=== PATIENT | male | born 1945 | race American Indian/Alaskan Native ===

== ENCOUNTER 2016-04-30 08:49 | Inpatient (IN) | payer MEDICARE ==
[2016-04-30] MEDS ORDERED: DUONEB 0.5 MG-3 MG/3 ML SOLN IH ONE ×2 (09:04→09:06)
[2016-04-30] MEDS ORDERED: TYLENOL ONE (09:25)
[2016-04-30] MEDS ORDERED: TYLENOL PO ONE (09:29)
--- NOTE | 2016-04-30 09:42 | XRay Report ---
Chest 2 views: History: Shortness of breath. Findings: Cardiomegaly. Trachea is midline. Pulmonary venous congestion predominantly lower lobes. No consolidation or pleural effusion. Impression: Probable early CHF.
[2016-04-30 09:43] LABS: Basophils % (Auto) 0.9 % (0.0-1.8); Eosinophils % (Auto) 3.4 % (0.0-4.3); Hematocrit 21.1 % (35.5-45.6); Hemoglobin 7.2 gm/dl (11.8-15.2); Mean Corpuscular HGB Conc 34 % (32-34); Mean Corpuscular Hemoglobin 27 pg (28-32); Mean Corpuscular Volume 80 fl (84-94); Platelet Count 227 K/mm3 (140-440); Red Blood Count 2.65 M/mm3 (3.65-5.03); Red Cell Distribution Width 17.4 % (13.2-15.2); White Blood Count 12.9 K/mm3 (4.5-11.0)
[2016-04-30 09:52] LABS: BUN/Creatinine Ratio 7.42; Calcium 6.6 mg/dL (8.4-10.2); Chloride 105.1 mmol/L (98-107)
[2016-04-30 09:54] LABS: Potassium 6.1 mmol/L (3.6-5.0)
[2016-04-30] MEDS ORDERED: SODIUM BICARBONATE IV ONE ×2 (10:00→10:09)
[2016-04-30] MEDS ORDERED: CALCIUM GLUCONATE 1,000 MG in NACL 0.9% 100 ML IV ONE (10:01)
[2016-04-30] MEDS ORDERED: KIONEX PO ONE (10:02)
[2016-04-30] MEDS ORDERED: D50W (25GM) IV ONE (10:02)
[2016-04-30 10:39] LABS: INR 1.25 (0.87-1.13)
[2016-04-30 10:40] LABS: Partial Thromboplastin Time 47.9 Sec. (24.2-36.6)
[2016-04-30 10:43] LABS: Alanine Aminotransferase < 5 units/L (7-56); Albumin 3.4 g/dL (3.9-5); Albumin/Globulin Ratio 0.9 %; Alkaline Phosphatase 105 units/L (35-129); Bilirubin,Direct < 0.2 mg/dL (0-0.2); Bilirubin,Total 0.2 mg/dL (0.1-1.2); Total Protein 7.2 g/dL (6.3-8.2)
--- NOTE | 2016-04-30 12:36 | Emergency Department Report ---
ED General Adult HPI - General Chief complaint: Dyspnea/Respdistress Stated complaint: JELNEA Time Seen by Provider: 04/30/16 09:57 Source: patient Mode of arrival: Stretcher Limitations: No Limitations - History of Present Illness Initial comments: She states that he came to the emergency room today because of shortness of breath. Has a history of chronic renal failure and states that he has to make an appointment for a "fistula". He has been previously seen by [facility]. I suspect he has not been very compliant with his follow-up care. He does note that he has a history of congestive heart failure and previous transfusion. He's had no recent signs of GI bleeding. He does not complain of chest pain. He denies fever and chills. -: days(s) Associated Symptoms: denies other symptoms (except as above) - Related Data Home Medications Medication Instructions Recorded Confirmed Last Taken Aspirin [Aspirin BABY CHEW TAB] 81 mg PO DAILY 04/09/13 04/30/16 04/27/13 08:00 81mg Carvedilol [Coreg] 12.5 mg PO BID 04/09/13 04/30/16 04/27/13 08:00 12.5 mg Hydrochlorothiazide [HCTZ] 12.5 mg PO QDAY 04/09/13 04/30/16 04/27/13 08:00 amLODIPine [Norvasc] 10 mg PO DAILY 04/09/13 04/30/16 04/27/13 08:00 10 mg hydrALAZINE [Apresoline TAB] 50 mg PO TID 04/09/13 04/30/16 04/27/13 08:00 50 Allopurinol [Zyloprim] 100 mg PO QDAY 11/06/14 04/30/16 Unknown Atorvastatin Calcium [Lipitor] 10 mg PO QHS 11/06/14 04/30/16 Unknown Pantoprazole Sodium 40 mg PO QDAY 11/06/14 04/30/16 Unknown Famotidine [Pepcid] 20 mg PO BID 04/30/16 04/30/16 Unknown Ferrous Sulfate [Feosol] 325 mg PO QDAY 04/30/16 04/30/16 Unknown Furosemide [Lasix] 20 mg PO QDAY 04/30/16 04/30/16 Unknown Insulin NPH/Regular [Novolin 70/30] 15 unit SUB-Q BID 04/30/16 04/30/16 Unknown Sodium Bicarbonate 650 mg PO BID 04/30/16 04/30/16 Unknown Allergies Allergy/AdvReac Type Severity Reaction Status Date / Time No Known Allergies Allergy Verified 11/06/14 11:35 ED Review of Systems ROS: Stated complaint: JELENA Other details as noted in HPI Constitutional: weakness. denies: chills, fever Eyes: denies: eye pain, eye discharge, vision change ENT: denies: ear pain, throat pain Respiratory: shortness of breath, SOB with exertion, SOB at rest. denies: cough , wheezing Cardiovascular: denies: chest pain, palpitations Endocrine: no symptoms reported Gastrointestinal: denies: abdominal pain, nausea, diarrhea Genitourinary: denies: urgency, dysuria Musculoskeletal: denies: back pain, joint swelling, arthralgia Skin: denies: rash, lesions Neurological: denies: headache, weakness, paresthesias Psychiatric: denies: anxiety, depression Hematological/Lymphatic: denies: easy bleeding, easy bruising ED Past Medical Hx - Past Medical History Hx Hypertension: Yes (hyperlipidemia) Hx Congestive Heart Failure: No Hx Diabetes: Yes Hx Renal Disease: Yes (chronic, not on dialysis) Hx Sickle Cell Disease: No Hx Asthma: No Hx COPD: No Additional medical history: anemia - Surgical History Past Surgical History?: No - Social History Smoking Status: Current Some Day Smoker Substance Use Type: None - Medications Home Medications: Home Medications Medication Instructions Recorded Confirmed Last Taken Type Aspirin [Aspirin BABY CHEW TAB] 81 mg PO DAILY 04/09/13 04/30/16 04/27/13 08:00 History 81mg Carvedilol [Coreg] 12.5 mg PO BID 04/09/13 04/30/16 04/27/13 08:00 History 12.5 mg Hydrochlorothiazide [HCTZ] 12.5 mg PO QDAY 04/09/13 04/30/16 04/27/13 08:00 History amLODIPine [Norvasc] 10 mg PO DAILY 04/09/13 04/30/16 04/27/13 08:00 History 10 mg hydrALAZINE [Apresoline TAB] 50 mg PO TID 04/09/13 04/30/16 04/27/13 08:00 History 50 Allopurinol [Zyloprim] 100 mg PO QDAY 11/06/14 04/30/16 Unknown History Atorvastatin Calcium [Lipitor] 10 mg PO QHS 11/06/14 04/30/16 Unknown History Pantoprazole Sodium 40 mg PO QDAY 11/06/14 04/30/16 Unknown History Famotidine [Pepcid] 20 mg PO BID 04/30/16 04/30/16 Unknown History Ferrous Sulfate [Feosol] 325 mg PO QDAY 04/30/16 04/30/16 Unknown History Furosemide [Lasix] 20 mg PO QDAY 04/30/16 04/30/16 Unknown History Insulin NPH/Regular [Novolin 70/30] 15 unit SUB-Q BID 04/30/16 04/30/16 Unknown History Sodium Bicarbonate 650 mg PO BID 04/30/16 04/30/16 Unknown History ED Physical Exam - General Limitations: No Limitations General appearance: alert, in no apparent distress - Head Head exam: Present: atraumatic, normocephalic - Eye Eye exam: Present: normal appearance, PERRL, EOMI. Absent: scleral icterus - ENT ENT exam: Present: mucous membranes moist - Neck Neck exam: Present: normal inspection. Absent: tenderness, meningismus - Respiratory Respiratory exam: Present: normal lung sounds bilaterally (except somewhat distant). Absent: respiratory distress - Cardiovascular Cardiovascular Exam: Present: regular rate, normal rhythm. Absent: systolic murmur, diastolic murmur, rubs, gallop - GI/Abdominal GI/Abdominal exam: Present: soft, normal bowel sounds. Absent: distended, tenderness, guarding, rebound, rigid - Rectal Rectal exam: Present: deferred - Extremities Exam Extremities exam: Present: normal inspection, other (pretibial edema) - Back Exam Back exam: Present: normal inspection - Neurological Exam Neurological exam: Present: alert, oriented X3, CN II-XII intact. Absent: motor sensory deficit - Psychiatric Psychiatric exam: Present: normal affect, normal mood - Skin Skin exam: Present: warm, dry, intact. Absent: normal color (a bit pale), rash ED Course Vital Signs 04/30/16 04/30/16 04/30/16 08:57 09:17 09:31 Temperature 98.3 F Pulse Rate 86 Pulse Rate [ 85 Left Middle Lobe] Respiratory 22 Rate Respiratory 16 Rate [Left Middle Lobe] Blood Pressure 172/84 Blood Pressure [Right] O2 Sat by Pulse 22 L 2 L Oximetry 04/30/16 04/30/16 09:44 12:00 Temperature Pulse Rate 86 82 Pulse Rate [ Left Middle Lobe] Respiratory 20 Rate Respiratory Rate [Left Middle Lobe] Blood Pressure Blood Pressure 168/77 [Right] O2 Sat by Pulse 97 Oximetry - Reevaluation(s) Reevaluation #1: The patient was given a hyperkalemia cocktail as above indicated. I immediately spoke to Dr. Amaro concerning his care and management. She stated that she would see the patient and decide there after as to the need for an emergency vas cath. She stated she would have the lateral aspect of care. I spoke to Dr. Barros the hospitalist on-call. He is aware of the need to admit. After the patient's hyperkalemia cocktail, his blood pressure remained a bit high but not significantly so. His pulse oximetry is are well maintained. A half inch of Nitropaste was additionally ordered. 04/30/16 12:42 ED Medical Decision Making - Lab Data Result diagrams: 04/30/16 09:19 04/30/16 09:19 Laboratory Results - last 24 hr 04/30/16 04/30/16 04/30/16 09:19 09:19 10:03 WBC 12.9 H RBC 2.65 L Hgb 7.2 L Hct 21.1 L MCV 80 L MCH 27 L MCHC 34 RDW 17.4 H Plt Count 227 Lymph % (Auto) 7.8 L Durham % (Auto) 9.6 H Eos % (Auto) 3.4 Baso % (Auto) 0.9 Lymph # 1.0 L [place] # 1.2 H Eos # 0.4 Baso # 0.1 Seg Neutrophils % 78.3 H Seg Neutrophils # 10.1 H PT 15.6 H INR 1.25 H APTT 47.9 H Sodium 141 Potassium 6.1 H* Chloride 105.1 Carbon Dioxide 13 L Anion Gap 29 BUN 95 H Creatinine 12.8 H Estimated GFR 5 BUN/Creatinine Ratio 7.42 Glucose 122 H Calcium 6.6 L Total Bilirubin Direct Bilirubin Indirect Bilirubin AST ALT Alkaline Phosphatase Troponin T 0.033 H NT-Pro-B Natriuret Pep 70727 H Total Protein Albumin Albumin/Globulin Ratio Triglycerides 143 Cholesterol 181 LDL Cholesterol Direct 120 HDL Cholesterol 33 L Cholesterol/HDL Ratio 5.48 Blood Type 04/30/16 04/30/16 10:03 10:03 WBC RBC Hgb Hct MCV MCH MCHC RDW Plt Count Lymph % (Auto) Durham % (Auto) Eos % (Auto) Baso % (Auto) Lymph # Durham # Eos # Baso # Seg Neutrophils % Seg Neutrophils # PT INR APTT Sodium Potassium Chloride Carbon Dioxide Anion Gap BUN Creatinine Estimated GFR BUN/Creatinine Ratio Glucose Calcium Total Bilirubin 0.2 Direct Bilirubin < 0.2 Indirect Bilirubin 0.0 AST 6 ALT < 5 L Alkaline Phosphatase 105 Troponin T NT-Pro-B Natriuret Pep 45052 H Total Protein 7.2 Albumin 3.4 L Albumin/Globulin Ratio 0.9 Triglycerides Cholesterol LDL Cholesterol Direct HDL Cholesterol Cholesterol/HDL Ratio Blood Type O POSITIVE - EKG Data -: EKG Interpreted by Me EKG shows normal: sinus rhythm Rate: normal - EKG Data Interpretation: other (somewhat peaked T waves consistent with hyperkalemia. Slightly left axis) - Radiology Data interpreted by me: Congestive heart failure chest x-ray Critical Care Time: Yes Critical care time in (mins) excluding proc time.: 75 Critical care attestation.: If time is entered above; I have spent that time in minutes in the direct care of this critically ill patient, excluding procedure time. ED Disposition Clinical Impression: Chronic kidney disease, stage IV (severe), Acute on chronic renal failure, Hyperkalemia, Metabolic acidosis, Symptomatic anemia Congestive heart failure Qualifiers: Congestive heart failure type: systolic Congestive heart failure chronicity: acute on chronic Qualified Code(s): I50.23 - Acute on chronic systolic ( congestive) heart failure Disposition: OP ADMITTED IP TO THIS HOSP Is pt being admited?: Yes Does the pt Need Aspirin: Yes Condition: Stable
[2016-04-30] MEDS ORDERED: PROTONIX IV ONE (12:46)
[2016-04-30] MEDS ORDERED: BABY ASPIRIN PO ONE (12:47)
[2016-04-30] MEDS ORDERED: NACL 0.9% 1000 ML 100 ML IV PRN ×2 (13:47→17:24)
[2016-04-30] MEDS ORDERED: HEPARIN 10,000 UNITS/10 ML ONE (14:02)
[2016-04-30] MEDS ORDERED: HEPARIN 10,000 UNITS/10 ML IV ONE (14:33)
--- NOTE | 2016-04-30 15:06 | Operative Report ---
Operative Report Operative Report: EXAM: 1. Ultrasound-guided puncture of the right common femoral vein 2. Placement of a right common femoral vein nontunneled noncuffed hemodialysis catheter. DATE: 04/30/16 INDICATION: End-stage renal disease requiring urgent hemodialysis with audible wheezes. MEDICATIONS: Local anesthetic (1% lidocaine). DEVICES: Triple lumen 30 cm nontunneled noncuffed hemodialysis catheter COMMODITY MANAGER: JOEY MORRIS MD CONTRAST: None PROCEDURE: The risks, benefits, and alternatives were discussed and informed consent was obtained. The patient's right common femoral vein was assessed with ultrasound at bedside and determined to be patent prior to procedure. The patient was prepped and draped in a sterile fashion. The puncture site was anesthetized. Under sonographic guidance, the right common femoral vein was punctured with a 18-gauge micropuncture needle and a 0.035 inch wire was advanced through the needle. Over the 0.035 inch wire, dilatation was performed. The catheter was advanced over the wire. 3-0 nylon suture was used to secure the catheter. The central PICC lumen was charged with saline. The dialysis lumens were charged with 1000 units of heparin per milliliter of space. Biopatch and tegaderm were applied. Sterile dressing applied. FINDINGS: 1. Ultrasound documented patency of the right common femoral vein. The vessel was accessed under direct ultrasound guidance. IMPRESSION: 1. Successful ultrasound guided bedside placement of a right common femoral vein triple lumen 30 cm nontunneled noncuffed dual lumen hemodialysis catheter.
--- NOTE | 2016-04-30 15:27 | Event Note ---
Date: 04/30/[address] Amaro regarding patient Sami for dialysis. Discussed situation with patient, and elected to place a femoral Vas-Cath due to patient's audible wheezes/breathing complicating jugular access. Plan on placing a jugular PermCath in the next few days after patient has dialysis once or twice. Probably will place catheter on Sunday.
--- NOTE | 2016-04-30 16:19 | Event Note ---
Date: 04/30/16 See H/p in reports
[2016-04-30] MEDS ORDERED: MILK OF MAGNESIA PO PRN (16:20)
[2016-04-30] MEDS ORDERED: D50W (25GM) IV PRN ×2 (16:20)
[2016-04-30] MEDS ORDERED: ALUM-MAG HYDROX-SIMETH 200-200-20MG/5ML PO PRN (16:20)
[2016-04-30] MEDS ORDERED: DULCOLAX PR PRN (16:20)
[2016-04-30] MEDS: NOVOLOG SUB-Q SCH ×2 (16:44→22:55)
[2016-04-30 17:02] LABS: Hematocrit 21.7 % (35.5-45.6); Hemoglobin 7.3 gm/dl (11.8-15.2); Mean Corpuscular HGB Conc 34 % (32-34); Mean Corpuscular Hemoglobin 27 pg (28-32); Mean Corpuscular Volume 80 fl (84-94); Platelet Count 234 K/mm3 (140-440); Red Blood Count 2.72 M/mm3 (3.65-5.03); White Blood Count 9.7 K/mm3 (4.5-11.0)
[2016-04-30 17:09] LABS: Albumin 3.6 g/dL (3.9-5); Albumin/Globulin Ratio 1.1 %; BUN/Creatinine Ratio 7.44; Bilirubin,Total 0.2 mg/dL (0.1-1.2); Calcium 6.7 mg/dL (8.4-10.2); Chloride 100.8 mmol/L (98-107); Potassium 5.2 mmol/L (3.6-5.0); Total Protein 6.8 g/dL (6.3-8.2)
[2016-04-30] MEDS ORDERED: NACL 0.9% 500 ML 500 ML IV ONE (18:00)
[2016-04-30 18:17] LABS: Anisocytosis 1+; Blastocytes % (Manual) 0 %; Eosinophils % (Manual) 0 % (0.0-4.3)
[2016-04-30 18:18] LABS: Diff Status Complete; Hypochromasia 2+; Microcytosis 1+; Poikilocytosis 1+; Target Cells Few
--- NOTE | 2016-04-30 18:35 | History and Physical Report ---
CHIEF COMPLAINT: Increasing shortness of breath of 2 days' duration. HISTORY OF PRESENT ILLNESS: A 71-year-old -[place] male with history of hypertension, hyperlipidemia, insulin-dependent diabetes, chronic kidney disease, and gout, who comes in for increasing shortness of breath of 2 days' duration. No chest pain. Also, orthopnea present. Shortness of breath on minimal exertion. No chest pain. No palpitations. Feels weak. PAST MEDICAL HISTORY: Significant for hypertension, chronic kidney disease, hyperlipidemia, gout, gastroesophageal reflux disease, insulin-dependent diabetes. PAST SURGICAL HISTORY: None. SOCIAL HISTORY: Smokes about 5-6 cigarettes a day. FAMILY HISTORY: Significant for hypertension. CURRENT MEDICATIONS: Aspirin 81 mg daily, Coreg 12.5 b.i.d., hydrochlorothiazide 12.5 daily, amlodipine 10 mg p.o. daily, hydralazine 50 mg every 8 hours, allopurinol 100 mg p.o. daily, Lipitor 10 mg p.o. at bedtime, Protonix 40 mg p.o. daily, famotidine 20 mg p.o. b.i.d., ferrous sulfate 325 mg p.o. daily, Lasix 20 mg p.o. daily, Novolin 70/30 50 units twice a day, sodium bicarbonate 650 mg twice a day. REVIEW OF SYSTEMS: CONSTITUTIONAL: No weight loss, no weight gain. No fever, no chills. HEENT: No sore throat, no postnasal drip. NECK: No neck stiffness or neck pain. CARDIOVASCULAR AND RESPIRATORY SYSTEM: Shortness of breath on minimal exertion, orthopnea present. No chest pain. No cough. No palpitations. GASTROINTESTINAL: Some nausea present. No vomiting, no diarrhea. GENITOURINARY SYSTEM: No dysuria, no flank pain. MUSCULOSKELETAL: No joint pains. Still feels weak in the muscles. CENTRAL NERVOUS SYSTEM: No syncope, no seizures. SKIN: No rashes. HEMATOLOGIC AND LYMPHATIC SYSTEM: No lymphadenopathy, no easy bruising. PSYCHIATRIC: No depression. No suicidal or homicidal ideation. A 14-point review of system was done and essentially otherwise negative. Other than the shortness of breath and orthopnea. PHYSICAL EXAMINATION: VITAL SIGNS: On examination, elderly male, cheerful, cooperative, comes in with blood pressure 168/77, temperature is 98.3, pulse is 86. Repeat blood pressure is 172/84, sats 100%. HEENT: Unremarkable, slightly pale mucous membranes. NECK: Supple, no lymphadenopathy, no thyromegaly. LUNGS: Clear to auscultation and percussion. Good air entry. CARDIOVASCULAR: S1, S2 heard. No gallop, no murmur, no rub. Apical impulse in left fifth intercostal space and midclavicular line. ABDOMEN: Soft and benign. No hepatosplenomegaly. No guarding, no rigidity. Hernial orifices are normal. EXTREMITIES: Good pedal pulses. No pedal edema. CENTRAL NERVOUS SYSTEM: Alert and oriented x 4, nonfocal exam. SKIN: Normal. LABORATORY DATA: Significant for hemoglobin of 7.2, hematocrit of 21.1, potassium of 6.1, BUN of 95, creatinine of 12.8, glucose of 122. DIAGNOSTIC DATA: EKG shows peaked T-waves consistent with hyperkalemia and EKG interpreted by me. Chest x-ray shows congestive heart failure. ASSESSMENT AND PLAN: 1. Congestive heart failure exacerbation, secondary to volume overload. We will get an echocardiogram to check the ejection fraction. The patient needs ultrafiltration and volume removal from emergent hemodialysis. 2. Fadfl-fw-rpjeree renal failure. The patient has end-stage renal disease, needs to be on 3 times a week dialysis. The patient to get a Vas-Cath and arteriovenous shunt fistula. Vascular Surgery consult requested. 3. Hyperkalemia, the patient was given D50W, insulin, sodium bicarbonate, and calcium gluconate in the ER. Potassium not back, high, should come down to normal levels. 4. Hypertension. Continue Coreg 12.5 b.i.d., hydralazine 50 mg b.i.d., and amlodipine 10 mg p.o. daily. 5. Insulin-dependent diabetes. Continue insulin 70/30, 50 units twice a day and coverage. 6. Gastroesophageal reflux disease. Continue Protonix 40 mg p.o. daily. 7. Hyperlipidemia. Continue atorvastatin 10 mg p.o. daily. 8. Deep venous thrombosis prophylaxis, heparin 5000 every 12 hours. 9. Anemia. The patient to be transfused one unit of packed red blood cells. CRITICAL CARE STATEMENT: The patient to be admitted to ICU. The high probability of clinically significant sudden or life-threatening deterioration of the cardiorespiratory systems required my full and direct attention, intervention and personal management. The aggregate critical care time was 35 minutes. The time is in addition to time spent performing reported procedures, but includes the followin. Data review and interpretation. 2. The patient's assessment and monitoring of vital signs. 3. Documentation. 4. Medication orders and management. JOB# [id number] ALEXA/JEF CONTRERAS
[2016-04-30] MEDS: HEPARIN IV PRN (20:09)
[2016-04-30] MEDS: APRESOLINE PO SCH (20:37)
[2016-04-30] MEDS ORDERED: PEPCID PO SCH (22:00)
[2016-04-30] MEDS: SODIUM BICARBONATE PO SCH (22:43)
[2016-04-30] MEDS: COREG PO SCH (22:46)
[2016-05-01] MEDS: APRESOLINE IV PRN ×2 (04:00→23:42)
[2016-05-01] MEDS ORDERED: PROVENTIL IH ONE (04:14)
--- NOTE | 2016-05-01 06:37 | Consultation ---
History of Present Illness - Reason for Consult Consult date: 04/30/16 end stage renal disease, hyperkalemia - History of Present Illness Mr. Cameron is a 71yo gentleman with stage V chronic kidney disease who presented to the ED with a two day history of worsening shortness of breath. He denies chest pain but reports conversational dyspnea and 2 pillow orthopnea. He was seen by [facility] in February. At that time, his eGFR 11, and he was referred to Dr. Willett for access placement. However, patient never followed up. Labs in the ED notable for SCr 12.8, eGFR5, K 6.1 and bicarb 13. Past History Past Medical History: diabetes, hypertension, hyperlipidemia Past Surgical History: No surgical history Social history: denies: smoking, alcohol abuse Family history: no significant family history Medications and Allergies Allergies Allergy/AdvReac Type Severity Reaction Status Date / Time No Known Allergies Allergy Verified 11/06/14 11:35 Home Medications Medication Instructions Recorded Confirmed Last Taken Type Aspirin [Aspirin BABY CHEW TAB] 81 mg PO DAILY 04/09/13 04/30/16 04/27/13 08:00 History 81mg Carvedilol [Coreg] 12.5 mg PO BID 04/09/13 04/30/16 04/27/13 08:00 History 12.5 mg Hydrochlorothiazide [HCTZ] 12.5 mg PO QDAY 04/09/13 04/30/16 04/27/13 08:00 History amLODIPine [Norvasc] 10 mg PO DAILY 04/09/13 04/30/16 04/27/13 08:00 History 10 mg hydrALAZINE [Apresoline TAB] 50 mg PO TID 04/09/13 04/30/16 04/27/13 08:00 History 50 Allopurinol [Zyloprim] 100 mg PO QDAY 11/06/14 04/30/16 Unknown History Atorvastatin Calcium [Lipitor] 10 mg PO QHS 11/06/14 04/30/16 Unknown History Pantoprazole Sodium 40 mg PO QDAY 11/06/14 04/30/16 Unknown History Famotidine [Pepcid] 20 mg PO BID 04/30/16 04/30/16 Unknown History Ferrous Sulfate [Feosol] 325 mg PO QDAY 04/30/16 04/30/16 Unknown History Furosemide [Lasix] 20 mg PO QDAY 04/30/16 04/30/16 Unknown History Insulin NPH/Regular [Novolin 70/30] 15 unit SUB-Q BID 04/30/16 04/30/16 Unknown History Sodium Bicarbonate 650 mg PO BID 04/30/16 04/30/16 Unknown History Active Meds: Active Medications Al Hydrox/Mg Hydrox/Simethicone (Alum-Mag Hydrox-Simeth [id number]/5ml) 30 ml PO Q4H PRN PRN Reason: Indigestion Albuterol (Proventil) 2.5 mg IH Q4HRT PRN PRN Reason: Shortness Of Breath Allopurinol (Zyloprim) 100 mg PO QDAY [facility] Amlodipine Besylate (Norvasc) 10 mg PO DAILY [facility] Aspirin (Baby Aspirin) 81 mg PO DAILY [facility] Atorvastatin Calcium (Lipitor) 10 mg PO QHS [facility] Last Admin: 04/30/16 22:43 Dose: 10 mg Bisacodyl (Dulcolax) 10 mg [place] QDAY PRN PRN Reason: constipation unrelieved by MOM Carvedilol (Coreg) 12.5 mg PO BID [facility] Last Admin: 04/30/16 22:46 Dose: 12.5 mg Dextrose (D50w (25gm)) 50 ml IV PRN PRN PRN Reason: Hypoglycemia Dextrose (D50w (25gm)) 50 ml IV PRN PRN PRN Reason: Hypoglycemia Famotidine (Pepcid) 20 mg PO BID [facility] Last Admin: 04/30/16 22:43 Dose: 20 mg Ferrous Sulfate (Feosol) 325 mg PO QDAY [facility] Furosemide (Lasix) 20 mg PO QDAY [facility] Heparin Sodium (Porcine) (Heparin) 5,000 unit IV TERRY PRN PRN Reason: hemodialysis Last Admin: 04/30/16 20:09 Dose: 5,000 unit Hydralazine HCl (Apresoline) 50 mg PO TID [facility] Last Admin: 04/30/16 20:37 Dose: 50 mg Hydralazine HCl (Apresoline) 10 mg IV Q6H PRN PRN Reason: Hypertension Last Admin: 05/01/16 04:00 Dose: 10 mg Hydrochlorothiazide (Hctz) 12.5 mg PO QDAY [facility] Hydromorphone HCl (Dilaudid) 0.5 mg IV Q3HR PRN PRN Reason: Pain , Severe (7-10) Sodium Chloride (Nacl 0.9% 1000 Ml) 100 mls @ 999 mls/hr IV TERRY PRN PRN Reason: Hypotension Sodium Chloride (Nacl 0.9% 1000 Ml) 100 mls @ 999 mls/hr IV TERRY PRN PRN Reason: Hypotension Insulin Aspart (Novolog) 0 units SUB-Q ACHS ZARINA PRN Reason: Protocol Last Admin: 04/30/16 22:55 Dose: 4 units Insulin Human Isoph/Insulin Regular (Novolin 70/30) 15 unit SUB-Q BID [facility] Last Admin: 04/30/16 22:47 Dose: 15 unit Magnesium Hydroxide (Milk Of Magnesia) 30 ml PO Q4H PRN PRN Reason: Constipation Oxycodone/Acetaminophen (Percocet 5/325) 1 tab PO Q6H PRN PRN Reason: Pain, Moderate (4-6) Pantoprazole Sodium (Protonix) 40 mg PO QDAY [facility] Sodium Bicarbonate (Sodium Bicarbonate) 650 mg PO BID [facility] Last Admin: 04/30/16 22:43 Dose: 650 mg Review of Systems Constitutional: no fever, no chills, no sweats Cardiovascular: orthopnea, shortness of breath, dyspnea on exertion, no chest pain Respiratory: shortness of breath, dyspnea on exertion, no cough Gastrointestinal: nausea, no abdominal pain, no vomiting, no diarrhea, no constipation Genitourinary Male: nocturia, no dysuria Musculoskeletal: no muscle cramps Integumentary: no rash Neurological: no weakness, no parathesias Exam - Vital Signs Vital signs: Vital Signs Temp Pulse BP Pulse Ox 98.3 F 86 172/84 94 04/30/16 08:57 04/30/16 08:57 04/30/16 08:57 04/30/16 08:57 - General Appearance General appearance: well-developed, well-nourished EENT: ATNC Respiratory: Wheezes Heart: regular, S1S2 Gastrointestinal: Present: normal. Absent: tenderness, distended Integumentary: no rash Neurologic: no focal deficit Musculoskeletal: Present: other (no peripheral edema) Results - Lab Results 04/30/16 16:33 04/30/16 16:33 Most recent lab results Calcium 6.7 mg/dL (8.4-10.2) L 04/30/16 16:33 Phosphorus 7.8 mg/dL (2.5-4.5) H 04/30/16 16:33 Assessment and Plan Impression * End stage renal disease - new * Pulmonary edema * Hyperkalemia * Metabolic acidosis * Anemia secondary to ESRD * Hypertension Plan: * Have consulted Dr. Palmer for placement of vascath * Hemodialysis to follow insertion of vascath * Will plan for dialysis on Sun and Sunday * Will consult CM for outpatient dialysis clinic placement
--- NOTE | 2016-05-01 08:08 | Progress Note ---
Assessment and Plan Assessment and plan: --Acute renal failure/end stage renal disease/new hemodialysis Received hemodialysis yesterday, scheduled for hemodialysis today Nephrology following --Hyperkalemia; significant improvement after dialysis --Fluid overload/pulmonary edema secondary to end-stage renal disease Dialysis w --Anemia secondary to end-stage renal disease Procrit during dialysis, closely monitor H&H transfuse as needed --Hypertension; moderate control, continue current antihypertensives And when necessary hydralazine --Type 2 diabetes mellitus; Accu-Chek sliding scale coverage and ADA diet and insulin Patient's hemoglobin A1c is less than 6 --Ongoing tobacco use; smoking cessation counseling done strongly advised nicotine patch Reason consequences of tobacco use discussed with the patient verbalized understanding I spent 10 minutes counseling smoking cessation --DVT prophylaxis; with heparin --DC planning. Case management outpatient hemodialysis clinic scheduling Patient is clinically stable to be transferred out of ICU to medical floor Plan of care discussed with the patient is nurse as well as the charge nurse Critical care time 31 minutes Critical care time 31 minutes The high probability of a clinically significant, sudden or life threatening deterioration of the [pulmonology , infectious diseases , endocrine and renal] system(s) required my full and direct attention, intervention and personal management. The aggregate critical care time was [31] minutes. This time is in addition to time spent performing reported procedures but includes the following : [x] Data Review and interpretation [x] Patient assessment and monitoring of vital signs [x] Documentation [x] Medication orders and management History Interval history: Patient Seen and evaluated in ICU, medical records reviewed Received hemodialysis last night and scheduled for dialysis today Patient feels better complains of mild chest congestion Denies any chest pain or shortness of breath Vital signs reviewed Hospitalist Physical - Constitutional Vitals: Temp Pulse Resp BP Pulse Ox 98.1 F 74 17 146/84 99 05/01/16 05:06 05/01/16 07:00 05/01/16 07:00 05/01/16 07:00 05/01/16 07:00 General appearance: Present: no acute distress, well-nourished - EENT Eyes: Present: PERRL, EOM intact - Neck Neck: Present: supple, normal ROM - Respiratory Respiratory effort: normal Respiratory: bilateral: diminished, rales, negative: rhonchi, wheezing - Cardiovascular Rhythm: regular Heart Sounds: Present: S1 & S2 - Extremities Extremities: no ischemia, pulses intact, pulses symmetrical Extremity abnormal: other (groin Vas-Cath in place) - Abdominal General gastrointestinal: soft, non-tender, non-distended, normal bowel sounds - Integumentary Integumentary: Present: clear, warm - Psychiatric Psychiatric: appropriate mood/affect, cooperative - Neurologic Neurologic: CNII-XII intact, moves all extremities Results - Labs CBC & Chem 7: 04/30/16 16:33 04/30/16 16:33 Labs: Laboratory Last Values WBC 9.7 K/mm3 (4.5-11.0) 04/30/16 16:33 RBC 2.72 M/mm3 (3.65-5.03) L 04/30/16 16:33 Hgb 7.3 gm/dl (11.8-15.2) L 04/30/16 16:33 Hct 21.7 % (35.5-45.6) L 04/30/16 16:33 MCV 80 fl (84-94) L 04/30/16 16:33 MCH 27 pg (28-32) L 04/30/16 16:33 MCHC 34 % (32-34) 04/30/16 16:33 RDW 17.0 % (13.2-15.2) H 04/30/16 16:33 Plt Count 234 K/mm3 (140-440) 04/30/16 16:33 Lymph % (Auto) 7.8 % (13.4-35.0) L 04/30/16 09:19 [place] % (Auto) 9.6 % (0.0-7.3) H 04/30/16 09:19 Eos % (Auto) 3.4 % (0.0-4.3) 04/30/16 09:19 Baso % (Auto) 0.9 % (0.0-1.8) 04/30/16 09:19 Lymph # 1.0 K/mm3 (1.2-5.4) L 04/30/16 09:19 [place] # 1.2 K/mm3 (0.0-0.8) H 04/30/16 09:19 Eos # 0.4 K/mm3 (0.0-0.4) 04/30/16 09:19 Baso # 0.1 K/mm3 (0.0-0.1) 04/30/16 09:19 Add Manual Diff Complete 04/30/16 16:33 Total Counted 100 04/30/16 16:33 Seg Neutrophils % Controlled Area Checker 04/30/16 16:33 Seg Neuts % (Manual) 94.0 % (40.0-70.0) H 04/30/16 16:33 Band Neutrophils % 0 % 04/30/16 16:33 Lymphocytes % (Manual) 3.0 % (13.4-35.0) L 04/30/16 16:33 Reactive Lymphs % (Man) 0 % 04/30/16 16:33 Monocytes % (Manual) 0 % (0.0-7.3) 04/30/16 16:33 Eosinophils % (Manual) 0 % (0.0-4.3) 04/30/16 16:33 Basophils % (Manual) 3.0 % (0.0-1.8) H 04/30/16 16:33 Metamyelocytes % 0 % 04/30/16 16:33 Myelocytes % 0 % 04/30/16 16:33 Promyelocytes % 0 % 04/30/16 16:33 Blast Cells % 0 % 04/30/16 16:33 Nucleated RBC % Not Reportable 04/30/16 16:33 Seg Neutrophils # 10.1 K/mm3 (1.8-7.7) H 04/30/16 09:19 Seg Neutrophils # Man 9.1 K/mm3 (1.8-7.7) H 04/30/16 16:33 Band Neutrophils # 0.0 K/mm3 04/30/16 16:33 Lymphocytes # (Manual) 0.3 K/mm3 (1.2-5.4) L 04/30/16 16:33 Abs React Lymphs (Man) 0.0 K/mm3 04/30/16 16:33 Monocytes # (Manual) 0.0 K/mm3 (0.0-0.8) 04/30/16 16:33 Eosinophils # (Manual) 0.0 K/mm3 (0.0-0.4) 04/30/16 16:33 Basophils # (Manual) 0.3 K/mm3 (0.0-0.1) H 04/30/16 16:33 Metamyelocytes # 0.0 K/mm3 04/30/16 16:33 Myelocytes # 0.0 K/mm3 04/30/16 16:33 Promyelocytes # 0.0 K/mm3 04/30/16 16:33 Blast Cells # 0.0 K/mm3 04/30/16 16:33 WBC Morphology Not Reportable 04/30/16 16:33 Hypersegmented Neuts Not Reportable 04/30/16 16:33 Hyposegmented Neuts Not Reportable 04/30/16 16:33 Hypogranular Neuts Not Reportable 04/30/16 16:33 Smudge Cells Not Reportable 04/30/16 16:33 Toxic Granulation Not Reportable 04/30/16 16:33 Toxic Vacuolation Not Reportable 04/30/16 16:33 Dohle Bodies Not Reportable 04/30/16 16:33 Pelger-Huet Anomaly Not Reportable 04/30/16 16:33 Williams Rods Not Reportable 04/30/16 16:33 Platelet Estimate Appears normal 04/30/16 16:33 Clumped Platelets Not Reportable 04/30/16 16:33 Plt Clumps, EDTA Not Reportable 04/30/16 16:33 Large Platelets Not Reportable 04/30/16 16:33 Giant Platelets Not Reportable 04/30/16 16:33 Platelet Satelliting Not Reportable 04/30/16 16:33 Plt Morphology Comment Not Reportable 04/30/16 16:33 RBC Morphology Not Reportable 04/30/16 16:33 Dimorphic RBCs Not Reportable 04/30/16 16:33 Polychromasia Not Reportable 04/30/16 16:33 Hypochromasia 2+ 04/30/16 16:33 Poikilocytosis 1+ 04/30/16 16:33 Anisocytosis 1+ 04/30/16 16:33 Microcytosis 1+ 04/30/16 16:33 Macrocytosis Not Reportable 04/30/16 16:33 Spherocytes Not Reportable 04/30/16 16:33 Pappenheimer Bodies Not Reportable 04/30/16 16:33 Sickle Cells Not Reportable 04/30/16 16:33 Target Cells Few 04/30/16 16:33 Tear Drop Cells Not Reportable 04/30/16 16:33 Ovalocytes Not Reportable 04/30/16 16:33 Helmet Cells Not Reportable 04/30/16 16:33 Sanchez-Mulga Bodies Not Reportable 04/30/16 16:33 Candor Rings Not Reportable 04/30/16 16:33 Iraida Cells Not Reportable 04/30/16 16:33 Bite Cells Not Reportable 04/30/16 16:33 Crenated Cell Not Reportable 04/30/16 16:33 Elliptocytes Not Reportable 04/30/16 16:33 Acanthocytes (Spur) Not Reportable 04/30/16 16:33 Rouleaux Not Reportable 04/30/16 16:33 Hemoglobin C Crystals Not Reportable 04/30/16 16:33 Schistocytes Not Reportable 04/30/16 16:33 Malaria parasites Not Reportable 04/30/16 16:33 Arsh Bodies Not Reportable 04/30/16 16:33 Hem Pathologist Commnt No 04/30/16 16:33 PT 15.6 Sec. (12.2-14.9) H 04/30/16 10:03 INR 1.25 (0.87-1.13) H 04/30/16 10:03 APTT 47.9 Sec. (24.2-36.6) H 04/30/16 10:03 Sodium 140 mmol/L (137-145) 04/30/16 16:33 Potassium 5.2 mmol/L (3.6-5.0) H 04/30/16 16:33 Chloride 100.8 mmol/L (98-107) 04/30/16 16:33 Carbon Dioxide 14 mmol/L (22-30) L 04/30/16 16:33 Anion Gap 30 mmol/L 04/30/16 16:33 BUN 96 mg/dL (9-20) H 04/30/16 16:33 Creatinine 12.9 mg/dL (0.8-1.5) H 04/30/16 16:33 Estimated GFR 5 ml/min 04/30/16 16:33 BUN/Creatinine Ratio 7.44 % 04/30/16 16:33 Glucose 207 mg/dL (75-100) H 04/30/16 16:33 POC Glucose 286 (70-105) H 04/30/16 22:41 Hemoglobin A1c 4.9 % (4-6) 04/30/16 16:33 Calcium 6.7 mg/dL (8.4-10.2) L 04/30/16 16:33 Phosphorus 7.8 mg/dL (2.5-4.5) H 04/30/16 16:33 Total Bilirubin 0.2 mg/dL (0.1-1.2) 04/30/16 16:33 Direct Bilirubin < 0.2 mg/dL (0-0.2) 04/30/16 10:03 Indirect Bilirubin 0.0 mg/dL 04/30/16 10:03 AST 6 units/L (5-40) 04/30/16 16:33 ALT 5 units/L (7-56) L 04/30/16 16:33 Alkaline Phosphatase 102 units/L (35-129) 04/30/16 16:33 Troponin T 0.033 ng/mL (0.00-0.029) H 04/30/16 09:19 NT-Pro-B Natriuret Pep 79956 pg/mL (0-900) H 04/30/16 10:03 Total Protein 6.8 g/dL (6.3-8.2) 04/30/16 16:33 Albumin 3.6 g/dL (3.9-5) L 04/30/16 16:33 Albumin/Globulin Ratio 1.1 % 04/30/16 16:33 Triglycerides 143 mg/dL (2-149) 04/30/16 09:19 Cholesterol 181 mg/dL (50-199) 04/30/16 09:19 LDL Cholesterol Direct 120 mg/dL (50-130) 04/30/16 09:19 HDL Cholesterol 33 mg/dL (40-59) L 04/30/16 09:19 Cholesterol/HDL Ratio 5.48 % 04/30/16 09:19 Hepatitis A IgM Ab -1 (NonReactive) 04/30/16 21: Hep Bs Antigen Non-reactive (Negative) 04/30/16 21: Hep B Core IgM Ab Non-reactive (NonReactive) 04/30/16 21: Hepatitis C Antibody Non-reactive (NonReactive) 04/30/16 21:26 Blood Type O POSITIVE 04/30/16 10:03 Antibody Screen Negative 04/30/16 10:03 Crossmatch See Detail 04/30/16 10:03
[2016-05-01] MEDS: NOVOLOG SUB-Q SCH ×4 (08:10→22:46)
[2016-05-01] MEDS: APRESOLINE PO SCH ×3 (08:40→20:01)
[2016-05-01] MEDS: NORVASC PO SCH (09:13)
[2016-05-01] MEDS: PROTONIX PO SCH (09:15)
[2016-05-01] MEDS: SODIUM BICARBONATE PO SCH ×2 (09:15→22:46)
[2016-05-01] MEDS: ZYLOPRIM PO SCH (09:15)
[2016-05-01] MEDS: BABY ASPIRIN PO SCH (09:15)
[2016-05-01] MEDS: FEOSOL PO SCH (09:15)
[2016-05-01] MEDS: COREG PO SCH ×2 (09:16→22:45)
[2016-05-01] MEDS: HABITROL TD SCH (09:17)
[2016-05-01] MEDS: PROVENTIL IH PRN (09:19)
[2016-05-01] MEDS: HEPARIN SUB-Q SCH ×2 (09:22→22:47)
--- NOTE | 2016-05-01 09:47 | Progress Note ---
Assessment and Plan Impression * End stage renal disease - new * Pulmonary edema * Hyperkalemia * Metabolic acidosis * Anemia secondary to ESRD * Hypertension Plan: * Hemodialysis today and tomorrow * Vascular surgery following - convert vascath to permcath; ideally, would also like permanent access placed prior to admission * Check iron stores * Epogen with dialysis * Renal diet * Will consult CM for outpatient dialysis clinic placement Subjective Date of service: 05/01/16 Interval history: Patient reports SOB unchanged. Tolerated HD yesterday. Objective - Vital Signs Vital signs: Vital Signs - 12hr 04/30/16 04/30/16 04/30/16 22:00 22:20 22:46 Temperature Pulse Rate 86 83 83 Pulse Rate [ Anterior Bilateral Throughout] Respiratory 19 18 Rate Respiratory Rate [Anterior Bilateral Throughout] Blood Pressure 181/86 181/86 188/86 O2 Sat by Pulse 97 97 Oximetry 04/30/16 04/30/16 05/01/16 23:00 23:39 00:00 Temperature Pulse Rate 85 82 83 Pulse Rate [ Anterior Bilateral Throughout] Respiratory 15 17 16 Rate Respiratory Rate [Anterior Bilateral Throughout] Blood Pressure 192/86 172/82 184/74 O2 Sat by Pulse 97 97 96 Oximetry 05/01/16 05/01/16 05/01/16 01:00 01:46 02:00 Temperature Pulse Rate 75 76 84 Pulse Rate [ Anterior Bilateral Throughout] Respiratory 17 17 21 Rate Respiratory Rate [Anterior Bilateral Throughout] Blood Pressure 178/82 177/84 180/81 O2 Sat by Pulse 97 98 95 Oximetry 05/01/16 05/01/16 05/01/16 02:12 03:00 04:00 Temperature Pulse Rate 80 72 74 Pulse Rate [ Anterior Bilateral Throughout] Respiratory 23 18 16 Rate Respiratory Rate [Anterior Bilateral Throughout] Blood Pressure 180/81 183/89 161/72 O2 Sat by Pulse 95 100 99 Oximetry 05/01/16 05/01/16 05/01/16 04:14 04:20 04:29 Temperature Pulse Rate Pulse Rate [ 71 69 Anterior Bilateral Throughout] Respiratory Rate Respiratory 14 13 Rate [Anterior Bilateral Throughout] Blood Pressure O2 Sat by Pulse 98 Oximetry 05/01/16 05/01/16 05/01/16 05:00 05:06 06:00 Temperature 98.1 F Pulse Rate 72 72 Pulse Rate [ Anterior Bilateral Throughout] Respiratory 19 16 Rate Respiratory Rate [Anterior Bilateral Throughout] Blood Pressure 158/73 185/161 O2 Sat by Pulse 96 94 Oximetry 05/01/16 05/01/16 05/01/16 06:24 06:58 07:00 Temperature Pulse Rate 80 82 74 Pulse Rate [ Anterior Bilateral Throughout] Respiratory 22 26 H 17 Rate Respiratory Rate [Anterior Bilateral Throughout] Blood Pressure 185/161 146/84 146/84 O2 Sat by Pulse 94 95 99 Oximetry 05/01/16 05/01/16 05/01/16 07:06 08:00 08:40 Temperature 98 F Pulse Rate 68 70 Pulse Rate [ Anterior Bilateral Throughout] Respiratory 14 16 Rate Respiratory Rate [Anterior Bilateral Throughout] Blood Pressure 128/75 140/80 140/82 O2 Sat by Pulse 99 99 Oximetry 05/01/16 05/01/16 05/01/16 08:48 09:13 09:15 Temperature Pulse Rate 83 78 Pulse Rate [ 74 Anterior Bilateral Throughout] Respiratory 21 Rate Respiratory 15 Rate [Anterior Bilateral Throughout] Blood Pressure 150/72 150/72 O2 Sat by Pulse 92 97 Oximetry 05/01/16 05/01/16 09:16 09:31 Temperature Pulse Rate 78 Pulse Rate [ 78 Anterior Bilateral Throughout] Respiratory Rate Respiratory 13 Rate [Anterior Bilateral Throughout] Blood Pressure 173/79 O2 Sat by Pulse Oximetry - General Appearance General appearance: well-developed, well-nourished EENT: ATNC Cardiology: regular, S1S2 Gastrointestinal: normal, no tenderness, no distended Integumentary: no rash Neurologic: no focal deficit Musculoskeletal: other (no edema) Psychiatric: mood/affect appropriate, cooperative - Lab 04/30/16 16:33 04/30/16 16:33 Most recent lab results Calcium 6.7 mg/dL (8.4-10.2) L 04/30/16 16:33 Phosphorus 7.8 mg/dL (2.5-4.5) H 04/30/16 16:33
[2016-05-01] MEDS ORDERED: HCTZ PO SCH (10:00)
[2016-05-01] MEDS ORDERED: PEPCID PO SCH (10:00)
[2016-05-01] MEDS ORDERED: LASIX PO SCH (10:00)
[2016-05-01] MEDS ORDERED: NACL 0.9% 1000 ML 100 ML IV PRN (10:31)
[2016-05-01] MEDS ORDERED: PROCRIT IV PRN (10:31)
--- NOTE | 2016-05-01 10:38 | Consultation ---
History of Present Illness Consult date: 05/01/16 Reason for consult: dyspnea History of present illness: 71-year-old -[place] male admitted to the ICU with a history of shortness of breath of 2 days' onset in the context of end-stage renal disease. The patient had prior history of congestive heart failure, end-stage renal disease pending AV fistula placement. He also is an active smoker 1 pack cigarettes per day suspected to have COPD but no documented workup. He presented to the ER with progressive dyspnea including the dyspnea upon exertion. Also some lower extremity swelling. Denies any fevers chills or chest pain. No active expectoration or hemoptysis. X-rays at the ER showed mild congestive heart failure changes. He was admitted last night to the unit and initiated on an emergent hemodialysis with some improvement in symptoms. This morning however, he was still complaining of shortness of breath and wheezing that improved with initial nebulizer therapy. Past History Past Medical History: diabetes, hypertension, hyperlipidemia Past Surgical History: No surgical history Social history: denies: smoking, alcohol abuse Family history: no significant family history Medications and Allergies Allergies Allergy/AdvReac Type Severity Reaction Status Date / Time No Known Allergies Allergy Verified 11/06/14 11:35 Home Medications Medication Instructions Recorded Confirmed Last Taken Type Aspirin [Aspirin BABY CHEW TAB] 81 mg PO DAILY 04/09/13 04/30/16 04/27/13 08:00 History 81mg Carvedilol [Coreg] 12.5 mg PO BID 04/09/13 04/30/16 04/27/13 08:00 History 12.5 mg Hydrochlorothiazide [HCTZ] 12.5 mg PO QDAY 04/09/13 04/30/16 04/27/13 08:00 History amLODIPine [Norvasc] 10 mg PO DAILY 04/09/13 04/30/16 04/27/13 08:00 History 10 mg hydrALAZINE [Apresoline TAB] 50 mg PO TID 04/09/13 04/30/16 04/27/13 08:00 History 50 Allopurinol [Zyloprim] 100 mg PO QDAY 11/06/14 04/30/16 Unknown History Atorvastatin Calcium [Lipitor] 10 mg PO QHS 11/06/14 04/30/16 Unknown History Pantoprazole Sodium 40 mg PO QDAY 11/06/14 04/30/16 Unknown History Famotidine [Pepcid] 20 mg PO BID 04/30/16 04/30/16 Unknown History Ferrous Sulfate [Feosol] 325 mg PO QDAY 04/30/16 04/30/16 Unknown History Furosemide [Lasix] 20 mg PO QDAY 04/30/16 04/30/16 Unknown History Insulin NPH/Regular [Novolin 70/30] 15 unit SUB-Q BID 04/30/16 04/30/16 Unknown History Sodium Bicarbonate 650 mg PO BID 04/30/16 04/30/16 Unknown History Active Meds: Active Medications Al Hydrox/Mg Hydrox/Simethicone (Alum-Mag Hydrox-Simeth [id number]/5ml) 30 ml PO Q4H PRN PRN Reason: Indigestion Albuterol (Proventil) 2.5 mg IH Q4HRT PRN PRN Reason: Shortness Of Breath Last Admin: 05/01/16 09:19 Dose: 2.5 mg Allopurinol (Zyloprim) 100 mg PO QDAY [facility] Last Admin: 05/01/16 09:15 Dose: 100 mg Amlodipine Besylate (Norvasc) 10 mg PO DAILY [facility] Last Admin: 05/01/16 09:13 Dose: 10 mg Aspirin (Baby Aspirin) 81 mg PO DAILY [facility] Last Admin: 05/01/16 09:15 Dose: 81 mg Atorvastatin Calcium (Lipitor) 10 mg PO QHS [facility] Last Admin: 04/30/16 22:43 Dose: 10 mg Bisacodyl (Dulcolax) 10 mg [place] QDAY PRN PRN Reason: constipation unrelieved by MOM Carvedilol (Coreg) 12.5 mg PO BID [facility] Last Admin: 05/01/16 09:16 Dose: 12.5 mg Dextrose (D50w (25gm)) 50 ml IV PRN PRN PRN Reason: Hypoglycemia Epoetin Arun (Procrit) 10,000 unit IV TERRY PRN PRN Reason: hemodialysis Ferrous Sulfate (Feosol) 325 mg PO QDAY [facility] Last Admin: 05/01/16 09:15 Dose: 325 mg Furosemide (Lasix) 20 mg PO QDAY [facility] Last Admin: 05/01/16 09:13 Dose: 20 mg Heparin Sodium (Porcine) (Heparin) 5,000 unit IV TERRY PRN PRN Reason: hemodialysis Last Admin: 04/30/16 20:09 Dose: 5,000 unit Heparin Sodium (Porcine) (Heparin) 5,000 unit SUB-Q Q12HR [facility] Last Admin: 05/01/16 09:22 Dose: 5,000 unit Hydralazine HCl (Apresoline) 50 mg PO TID [facility] Last Admin: 05/01/16 08:40 Dose: 50 mg Hydralazine HCl (Apresoline) 10 mg IV Q6H PRN PRN Reason: Hypertension Last Admin: 05/01/16 04:00 Dose: 10 mg Hydrochlorothiazide (Hctz) 12.5 mg PO QDAY [facility] Last Admin: 05/01/16 09:14 Dose: 12.5 mg Hydromorphone HCl (Dilaudid) 0.5 mg IV Q3HR PRN PRN Reason: Pain , Severe (7-10) Sodium Chloride (Nacl 0.9% 1000 Ml) 100 mls @ 999 mls/hr IV TERRY PRN PRN Reason: Hypotension Sodium Chloride (Nacl 0.9% 1000 Ml) 100 mls @ 999 mls/hr IV TERRY PRN PRN Reason: Hypotension Sodium Chloride (Nacl 0.9% 1000 Ml) 100 mls @ 999 mls/hr IV TERRY PRN PRN Reason: Hypotension Insulin Aspart (Novolog) 0 units SUB-Q ACHS [facility] PRN Reason: Protocol Last Admin: 05/01/16 08:10 Dose: Not Given Insulin Human Isoph/Insulin Regular (Novolin 70/30) 15 unit SUB-Q BID [facility] Last Admin: 05/01/16 10:23 Dose: 15 unit Magnesium Hydroxide (Milk Of Magnesia) 30 ml PO Q4H PRN PRN Reason: Constipation Nicotine (Habitrol) 14 mg TD QDAY [facility] Last Admin: 05/01/16 09:17 Dose: 14 mg Oxycodone/Acetaminophen (Percocet 5/325) 1 tab PO Q6H PRN PRN Reason: Pain, Moderate (4-6) Pantoprazole Sodium (Protonix) 40 mg PO QDAY [facility] Last Admin: 05/01/16 09:15 Dose: 40 mg Sodium Bicarbonate (Sodium Bicarbonate) 650 mg PO BID [facility] Last Admin: 05/01/16 09:15 Dose: 650 mg Review of Systems Constitutional: weight gain, fatigue, weakness, malaise, no fever, no chills, no night sweats Ears, nose, mouth and throat: no nasal discharge, no epistaxis, no bleeding gums Cardiovascular: orthopnea, edema, shortness of breath, dyspnea on exertion, paroxysmal nocturnal dyspnea, no chest pain, no palpitations, no rapid/ irregular heart beat Respiratory: shortness of breath, dyspnea on exertion, wheezing, no cough, no cough with sputum, no excessive sputum, no hemoptysis, no pleurisy Gastrointestinal: no abdominal pain Musculoskeletal: no neck stiffness, no neck pain, no shooting arm pain Neurological: no paralysis, no weakness, no parathesias, no numbness, no tingling, no seizures Psychiatric: no anxiety, no memory loss Hematologic/Lymphatic: no easy bruising, no easy bleeding, no lymphadenopathy, no lymphedema Physical Examination Vital signs: Vital Signs Temp Pulse BP Pulse Ox 98.3 F 86 172/84 94 04/30/16 08:57 04/30/16 08:57 04/30/16 08:57 04/30/16 08:57 General appearance: no acute distress, alert Eyes: non-icteric ENT: oropharynx moist Neck: supple Ascultation: Bilateral: wheezes (mild bilateral) Percussion: Bilateral: not dull Tactile fremitus: Bilateral: normal Cardiovascular: regular rate and rhythm Gastrointestinal: normoactive bowel sounds, non-distended Integumentary: normal Extremities: edema Musculoskeletal: no deformities normal mental status, non-focal exam, CN II-XII normal mood appropriate, affect normal Results - Laboratory Findings CBC and BMP: 04/30/16 16:33 04/30/16 16:33 PT/INR, D-dimer PT 15.6 Sec. (12.2-14.9) H 04/30/16 10:03 INR 1.25 (0.87-1.13) H 04/30/16 10:03 Abnormal lab findings: Abnormal Labs 04/30/16 04/30/16 04/30/16 16:33 16:33 16:33 RBC 2.72 L Hgb 7.3 L Hct 21.7 L MCV 80 L MCH 27 L RDW 17.0 H Seg Neuts % (Manual) 94.0 H Lymphocytes % (Manual) 3.0 L Basophils % (Manual) 3.0 H Seg Neutrophils # Man 9.1 H Lymphocytes # (Manual) 0.3 L Basophils # (Manual) 0.3 H Potassium 5.2 H Carbon Dioxide 14 L BUN 96 H Creatinine 12.9 H Glucose 207 H POC Glucose Calcium 6.7 L Phosphorus 7.8 H ALT 5 L Albumin 3.6 L 04/30/16 04/30/16 16:42 22:41 RBC Hgb Hct MCV MCH RDW Seg Neuts % (Manual) Lymphocytes % (Manual) Basophils % (Manual) Seg Neutrophils # Man Lymphocytes # (Manual) Basophils # (Manual) Potassium Carbon Dioxide BUN Creatinine Glucose POC Glucose 231 H 286 H Calcium Phosphorus ALT Albumin - Diagnostic Findings Chest x-ray: report reviewed, image reviewed Assessment and Plan Congestive heart failure with acute decompensation. End-stage renal disease. Treatment decompensation as noted above COPD with exacerbation Tobacco abuse Pleural effusions Recommendations Albuterol nebulizations 2.5 mg every 4-6 hours Continue with hemodialysis as ordered by nephrology. Monitor blood pressure Continue oxygen support goal is to maintain oximetry over 92% at all times. Discussed with patient smoking cessation Will need outpatient evaluation for COPD once the patient elected decompensation episode is over DVT prophylaxis Thanks for consultation. We'll follow Critical care time was 35 minutes in [id number] evaluation and coordination of care
--- NOTE | 2016-05-01 10:57 | Admit Criteria Form ---
Admission Criteria Documentation: RENAL FAILURE, CHRONIC Clinical Indications for Admission to Inpatient Care (Place 'X' for any and all applicable criteria): Admission is indicated for ANY ONE of the following (1)(2)(3)(4)(5): [X]I. Inpatient admission required rather than observation care (Use Renal Failure, Chronic: Observation Care Criteria as appropriate) because of ANY ONE of the following: [X]a) Volume overload or uremic symptoms (eg, clinically significant pulmonary edema, hypertension, pericarditis, acidosis) too severe for, or not responsive (eg, for over 24 hours) to emergency department or observation care dialysis or treatment regimen (11) [ ]b) Hemodynamic instability that is severe or persistent []c) Respiratory distress that is severe or persistent (11) [X]d) Clinically significant electrolyte abnormality that requires inpatient care (eg,hyperkalemia with severe ECG findings)[B] [ ]e) Supplement O2 or respiratory therapy for over 24hrs that is performable only in acute inpatient setting [ ]f) Continuous IV infusion of anticoagulation, platelet inhibitor, vasoactive, or Antiarrhythmic medication (15), [ ]g) Pulmonary artery catheter monitoring [ ]h) Temporary pacemaker placement [ ]i) Emergent pericardiocentesis [ ]j) Other condition, treatment or monitoring requiring inpatient admission [ ]II. Unexplained syncope [A] [ ]III. Recurrent seizures [ ]IV. Severe infections not treatable in outpatient setting (eg, peritonitis)(9 ) [ ]V. Cardiac arrhythmias of immediate concern [ ]. Encephalopathy [ ]VII.Bleeding abnormalities (eg, platelet dysfunction) with active (eg, gastrointestinal) bleeding Extended stay beyond goal length of stay may be needed for (3)(4)(35)(36): [ ]a) Continuing uremic complications [ ]b) Comorbidities or complications The original [employer] content created by [employer] has been revised. The portions of the content which have been revised are identified through the use of italic text or in bold, and [employer] has neither reviewed nor approved the modified material. All other unmodified content is copyright [employer]. Please see references footnoted in the original [employer] edition 2016 Admission Criteria Met: Yes
[2016-05-01 12:14] LABS: Total Iron Binding Capacity 247.8 mcg/dL (250-450)
--- NOTE | 2016-05-01 14:42 | Event Note ---
Date: 05/01/16 Pt s/p fem VC over the weekend. Will schedule upper body PC for Wed. Discussed with pt. R,B,A explained. Pt states understanding and he agrees to proceed.
[2016-05-01] MEDS: HEPARIN IV PRN (16:54)
[2016-05-01] MEDS ORDERED: NACL 0.9% 250ML 250 ML ONE (21:16)
[2016-05-02] MEDS: NOVOLOG SUB-Q SCH ×4 (08:12→22:17)
[2016-05-02] MEDS ORDERED: NACL 0.9% 1000 ML 100 ML IV PRN (09:12)
--- NOTE | 2016-05-02 09:13 | Progress Note ---
Assessment and Plan Impression * End stage renal disease - new * Pulmonary edema * Hyperkalemia - resolved * Metabolic acidosis * Anemia secondary to ESRD * Hypertension Plan: * Hemodialysis today * Vascular surgery following - convert vascath to permcath; ideally, would also like permanent access placed prior to admission * Epogen with dialysis; iron stores acceptable * Will d/c HCTZ; increase Lasix to 40mg daily; add Losartan 25mg daily * D/C po bicarbonate * Renal diet * Await outpatient dialysis clinic placement Subjective Date of service: 05/02/16 Interval history: Patient reports that he is feeling better. Objective - Vital Signs Vital signs: Vital Signs - 12hr 05/01/16 05/01/16 05/01/16 21:47 22:02 22:32 Temperature 98.6 F 98.7 F 98.7 F Pulse Rate 73 72 72 Pulse Rate [ Right Dorsalis Pedis] Pulse Rate [ Right Radial] Respiratory 20 16 16 Rate Blood Pressure 198/87 197/90 197/90 Blood Pressure [Left Arm] Blood Pressure [Right Arm] O2 Sat by Pulse Oximetry 05/01/16 05/01/16 05/01/16 22:45 23:02 23:42 Temperature 98.9 F Pulse Rate 72 73 88 Pulse Rate [ Right Dorsalis Pedis] Pulse Rate [ Right Radial] Respiratory 16 Rate Blood Pressure 197/90 188/88 188/88 Blood Pressure [Left Arm] Blood Pressure [Right Arm] O2 Sat by Pulse Oximetry 05/02/16 05/02/16 00:00 08:38 Temperature 98.3 F 98.2 F Pulse Rate Pulse Rate [ 80 Right Dorsalis Pedis] Pulse Rate [ 70 Right Radial] Respiratory 18 22 Rate Blood Pressure Blood Pressure 170/75 [Left Arm] Blood Pressure 195/84 [Right Arm] O2 Sat by Pulse 99 Oximetry - General Appearance General appearance: well-developed, well-nourished EENT: ATNC Respiratory: Present: Decreased Breath Sounds Cardiology: regular, S1S2 Gastrointestinal: normal, no tenderness, no distended Integumentary: no rash Musculoskeletal: other (no edema) Psychiatric: cooperative - Lab 05/02/16 09:44 05/02/16 09:44 Most recent lab results Calcium 6.7 mg/dL (8.4-10.2) L 04/30/16 16:33 Phosphorus 7.8 mg/dL (2.5-4.5) H 04/30/16 16:33
[2016-05-02] MEDS: APRESOLINE PO SCH ×3 (09:57→22:15)
[2016-05-02] MEDS: COREG PO SCH ×2 (09:58→22:08)
[2016-05-02] MEDS: ZYLOPRIM PO SCH (09:58)
[2016-05-02] MEDS: PROTONIX PO SCH (09:59)
[2016-05-02] MEDS: BABY ASPIRIN PO SCH (09:59)
[2016-05-02] MEDS: COZAAR PO SCH (09:59)
[2016-05-02] MEDS: LASIX PO SCH (10:00)
[2016-05-02] MEDS: NORVASC PO SCH (10:00)
[2016-05-02] MEDS: FEOSOL PO SCH (10:01)
[2016-05-02] MEDS: HABITROL TD SCH (10:05)
[2016-05-02] MEDS: HEPARIN SUB-Q SCH ×2 (10:11→22:07)
[2016-05-02 10:16] LABS: Basophils % (Auto) 0.9 % (0.0-1.8); Eosinophils % (Auto) 2.7 % (0.0-4.3); Hematocrit 23.9 % (35.5-45.6); Hemoglobin 7.9 gm/dl (11.8-15.2); Mean Corpuscular HGB Conc 33 % (32-34); Mean Corpuscular Hemoglobin 26 pg (28-32); Mean Corpuscular Volume 79 fl (84-94); Platelet Count 212 K/mm3 (140-440); Red Blood Count 3.02 M/mm3 (3.65-5.03); Red Cell Distribution Width 16.9 % (13.2-15.2); White Blood Count 11.3 K/mm3 (4.5-11.0)
--- NOTE | 2016-05-02 10:18 | Echocardiography Report ---
Transthoracic Echocardiogram Indication: CHF BP: 170/75 HR: 62 Conclusions *Global left ventricular systolic function is normal. *The estimated ejection fraction is 55-60%. *Abnormal left ventricular diastolic filling is observed, consistent with impaired relaxation. *Moderate concentric left ventricular hypertrophy is observed. *The right ventricular global systolic function is normal. *There is trace of aortic regurgitation. *There is mild mitral regurgitation. *There is trace tricuspid regurgitation. *There is evidence of mild pulmonary hypertension. *There is trace pulmonic regurgitation. Findings Procedure Info: The study quality is fair. Left Ventricle: The left ventricular chamber size is normal. Moderate concentric left ventricular hypertrophy is observed. Global left ventricular systolic function is normal. The estimated ejection fraction is 55-60%. Abnormal left ventricular diastolic function is observed. Abnormal left ventricular diastolic filling is observed, consistent with impaired relaxation. Left Atrium: The left atrial chamber size is normal. Right Ventricle: The right ventricular cavity size is normal. The right ventricular global systolic function is normal. Right Atrium: The right atrium is mild to moderately dilated. Aortic Valve: The aortic valve is trileaflet. There is trace of aortic regurgitation. There is no evidence of aortic stenosis. Mitral Valve: The mitral valve leaflets appear normal. There is mild mitral regurgitation. There is no evidence of mitral stenosis. Tricuspid Valve: There is trace tricuspid regurgitation. The right ventricular systolic pressure is calculated at 45 mmHg. There is evidence of mild pulmonary hypertension. There is no tricuspid stenosis. Pulmonic Valve: The pulmonic valve is not well visualized. There is trace pulmonic regurgitation. There is no pulmonic stenosis. Pericardium: There is no pericardial effusion. No pleural effusion is present. Measurements Chambers 2D Name Value Normal Range IVSd (2D) 1.74 cm (0.6 - 1.1) LVPWd 1.6 cm - LVPWd (2D) 1.57 cm (0.6 - 1.1) IVS:LVPW ratio (2D) 1.11 ratio - LVIDd 4.8 cm - LVIDs 3.4 cm - LVIDd (2D) 4.76 cm (3.7 - 5.6) LVIDs (2D) 3.37 cm (2 - 3.8) LV FS (Teichholz) (2D) 29.2 % - LV FS (cube) (2D) 29.2 % - LV EF (2D) 55 % - EF Teichholz (2D) 55.8 % - LA dimension 4.6 cm - Ao root diameter (2D) 3.4 cm (2 - 3.7) LA dimension (AP) 2D 4.6 cm (1.9 - 4) LA:Ao ratio (2D) 1.35 ratio - Volumes/Mass Name Value Normal Range LA ESV SP 4CH (MOD) 71 ml - LV EDV SP 4CH (MOD) 192 ml - LV ESV SP 4CH (MOD) 80 ml - EF SP 4CH (MOD) 58 % - Diastolic/Systolic Function Name Value Normal Range MV E-wave Vmax 1.02 m/sec - MV deceleration time 285 msec - MV A-wave Vmax 0.74 m/sec - MV E:A ratio 1.4 ratio - LV septal e' Vmax 0.08 m/sec - LV lateral e' Vmax 0.07 m/sec - LV E:e' septal ratio 12.8 ratio - LV E:e' lateral ratio 14.1 ratio - Aortic Valve Name Value Normal Range AV Vmax 1.58 m/sec - AV peak gradient 10 mmHg - LVOT diameter 2.2 cm - LVOT Vmax 1.06 m/sec - LVOT peak gradient 4 mmHg - SARHA (continuity Vmax) 2.55 cm2 - Mitral Valve Name Value Normal Range MR flow (PISA) 196.2 ml/sec - MR PISA radius 0.6 cm - MR alias Vmax 86.8 cm/sec - Tricuspid Valve Name Value Normal Range TR Vmax 3.09 m/sec - TR peak gradient 38 mmHg - RAP 3 mmHg - RVSP 45 mmHg - Pulmonic Valve/Qp:Qs Name Value Normal Range PV Vmax 0.73 m/sec - PV peak gradient 2 mmHg - PV acceleration time 141 msec -
[2016-05-02 10:38] LABS: BUN/Creatinine Ratio 6.61; Calcium 6.9 mg/dL (8.4-10.2); Chloride 98.5 mmol/L (98-107); Potassium 4.1 mmol/L (3.6-5.0)
[2016-05-02] MEDS: HEPARIN IV PRN (14:14)
--- NOTE | 2016-05-02 18:56 | Progress Note ---
Assessment and Plan Assessment and plan: --Acute renal failure/end stage renal disease/new hemodialysis Received hemodialysis yesterday, scheduled for hemodialysis today Nephrology following --Hyperkalemia; significant improvement after dialysis --Fluid overload/pulmonary edema secondary to end-stage renal disease Dialysis w --Anemia secondary to end-stage renal disease Procrit during dialysis, closely monitor H&H transfuse as needed --Hypertension; moderate control, continue current antihypertensives And when necessary hydralazine --Type 2 diabetes mellitus; Accu-Chek sliding scale coverage and ADA diet and insulin Patient's hemoglobin A1c is less than 6 --Ongoing tobacco use; smoking cessation counseling done strongly advised nicotine patch Reason consequences of tobacco use discussed with the patient verbalized understanding I spent 10 minutes counseling smoking cessation --DVT prophylaxis; with heparin --DC planning. Case management outpatient hemodialysis clinic scheduling Patient is clinically stable to be transferred out of ICU to medical floor Plan of care discussed with the patient is nurse as well as the charge nurse History Interval history: patient seen and evaluated medical records reviewed Received hemodialysis today Denies chest pain shortness of breath Alert awake oriented 3 not in acute distress Hospitalist Physical - Constitutional Vitals: Temp Pulse Resp BP Pulse Ox 98.1 F 83 20 160/84 99 05/02/16 15:35 05/02/16 16:44 05/02/16 15:35 05/02/16 16:44 05/02/16 15:35 General appearance: Present: no acute distress, well-nourished - EENT Eyes: Present: PERRL, EOM intact - Neck Neck: Present: supple, normal ROM - Respiratory Respiratory effort: normal Respiratory: bilateral: diminished, rales, negative: rhonchi, wheezing - Cardiovascular Rhythm: regular Heart Sounds: Present: S1 & S2 - Extremities Extremities: no ischemia, pulses intact, pulses symmetrical Peripheral Pulses: within normal limits - Abdominal General gastrointestinal: soft, non-tender, non-distended, normal bowel sounds - Integumentary Integumentary: Present: clear, warm - Psychiatric Psychiatric: appropriate mood/affect, cooperative - Neurologic Neurologic: CNII-XII intact, moves all extremities Results - Labs CBC & Chem 7: 05/02/16 09:44 05/02/16 09:44 Labs: Laboratory Last Values WBC 11.3 K/mm3 (4.5-11.0) H 05/02/16 09:44 RBC 3.02 M/mm3 (3.65-5.03) L 05/02/16 09:44 Hgb 7.9 gm/dl (11.8-15.2) L 05/02/16 09:44 Hct 23.9 % (35.5-45.6) L 05/02/16 09:44 MCV 79 fl (84-94) L 05/02/16 09:44 MCH 26 pg (28-32) L 05/02/16 09:44 MCHC 33 % (32-34) 05/02/16 09:44 RDW 16.9 % (13.2-15.2) H 05/02/16 09:44 Plt Count 212 K/mm3 (140-440) 05/02/16 09:44 Lymph % (Auto) 12.8 % (13.4-35.0) L 05/02/16 09:44 Curry % (Auto) 13.3 % (0.0-7.3) H 05/02/16 09:44 Eos % (Auto) 2.7 % (0.0-4.3) 05/02/16 09:44 Baso % (Auto) 0.9 % (0.0-1.8) 05/02/16 09:44 Lymph # 1.4 K/mm3 (1.2-5.4) 05/02/16 09:44 Curry # 1.5 K/mm3 (0.0-0.8) H 05/02/16 09:44 Eos # 0.3 K/mm3 (0.0-0.4) 05/02/16 09:44 Baso # 0.1 K/mm3 (0.0-0.1) 05/02/16 09:44 Add Manual Diff Complete 04/30/16 16:33 Total Counted 100 04/30/16 16:33 Seg Neutrophils % 70.3 % (40.0-70.0) H 05/02/16 09:44 Seg Neuts % (Manual) 94.0 % (40.0-70.0) H 04/30/16 16:33 Band Neutrophils % 0 % 04/30/16 16:33 Lymphocytes % (Manual) 3.0 % (13.4-35.0) L 04/30/16 16:33 Reactive Lymphs % (Man) 0 % 04/30/16 16:33 Monocytes % (Manual) 0 % (0.0-7.3) 04/30/16 16:33 Eosinophils % (Manual) 0 % (0.0-4.3) 04/30/16 16:33 Basophils % (Manual) 3.0 % (0.0-1.8) H 04/30/16 16:33 Metamyelocytes % 0 % 04/30/16 16:33 Myelocytes % 0 % 04/30/16 16:33 Promyelocytes % 0 % 04/30/16 16:33 Blast Cells % 0 % 04/30/16 16:33 Nucleated RBC % Not Reportable 04/30/16 16:33 Seg Neutrophils # 8.0 K/mm3 (1.8-7.7) H 05/02/16 09:44 Seg Neutrophils # Man 9.1 K/mm3 (1.8-7.7) H 04/30/16 16:33 Band Neutrophils # 0.0 K/mm3 04/30/16 16:33 Lymphocytes # (Manual) 0.3 K/mm3 (1.2-5.4) L 04/30/16 16:33 Abs React Lymphs (Man) 0.0 K/mm3 04/30/16 16:33 Monocytes # (Manual) 0.0 K/mm3 (0.0-0.8) 04/30/16 16:33 Eosinophils # (Manual) 0.0 K/mm3 (0.0-0.4) 04/30/16 16:33 Basophils # (Manual) 0.3 K/mm3 (0.0-0.1) H 04/30/16 16:33 Metamyelocytes # 0.0 K/mm3 04/30/16 16:33 Myelocytes # 0.0 K/mm3 04/30/16 16:33 Promyelocytes # 0.0 K/mm3 04/30/16 16:33 Blast Cells # 0.0 K/mm3 04/30/16 16:33 WBC Morphology Not Reportable 04/30/16 16:33 Hypersegmented Neuts Not Reportable 04/30/16 16:33 Hyposegmented Neuts Not Reportable 04/30/16 16:33 Hypogranular Neuts Not Reportable 04/30/16 16:33 Smudge Cells Not Reportable 04/30/16 16:33 Toxic Granulation Not Reportable 04/30/16 16:33 Toxic Vacuolation Not Reportable 04/30/16 16:33 Dohle Bodies Not Reportable 04/30/16 16:33 Pelger-Huet Anomaly Not Reportable 04/30/16 16:33 Williams Rods Not Reportable 04/30/16 16:33 Platelet Estimate Appears normal 04/30/16 16:33 Clumped Platelets Not Reportable 04/30/16 16:33 Plt Clumps, EDTA Not Reportable 04/30/16 16:33 Large Platelets Not Reportable 04/30/16 16:33 Giant Platelets Not Reportable 04/30/16 16:33 Platelet Satelliting Not Reportable 04/30/16 16:33 Plt Morphology Comment Not Reportable 04/30/16 16:33 RBC Morphology Not Reportable 04/30/16 16:33 Dimorphic RBCs Not Reportable 04/30/16 16:33 Polychromasia Not Reportable 04/30/16 16:33 Hypochromasia 2+ 04/30/16 16:33 Poikilocytosis 1+ 04/30/16 16:33 Anisocytosis 1+ 04/30/16 16:33 Microcytosis 1+ 04/30/16 16:33 Macrocytosis Not Reportable 04/30/16 16:33 Spherocytes Not Reportable 04/30/16 16:33 Pappenheimer Bodies Not Reportable 04/30/16 16:33 Sickle Cells Not Reportable 04/30/16 16:33 Target Cells Few 04/30/16 16:33 Tear Drop Cells Not Reportable 04/30/16 16:33 Ovalocytes Not Reportable 04/30/16 16:33 Helmet Cells Not Reportable 04/30/16 16:33 [place] Bodies Not Reportable 04/30/16 16:33 [place] Rings Not Reportable 04/30/16 16:33 [place] Cells Not Reportable 04/30/16 16:33 Bite Cells Not Reportable 04/30/16 16:33 Crenated Cell Not Reportable 04/30/16 16:33 Elliptocytes Not Reportable 04/30/16 16:33 Acanthocytes (Spur) Not Reportable 04/30/16 16:33 Rouleaux Not Reportable 04/30/16 16:33 Hemoglobin C Crystals Not Reportable 04/30/16 16:33 Schistocytes Not Reportable 04/30/16 16:33 Malaria parasites Not Reportable 04/30/16 16:33 Arsh Bodies Not Reportable 04/30/16 16:33 Hem Pathologist Commnt No 04/30/16 16:33 PT 15.6 Sec. (12.2-14.9) H 04/30/16 10:03 INR 1.25 (0.87-1.13) H 04/30/16 10:03 APTT 47.9 Sec. (24.2-36.6) H 04/30/16 10:03 Sodium 141 mmol/L (137-145) 05/02/16 09:44 Potassium 4.1 mmol/L (3.6-5.0) D 05/02/16 09:44 Chloride 98.5 mmol/L (98-107) 05/02/16 09:44 Carbon Dioxide 26 mmol/L (22-30) D 05/02/16 09:44 Anion Gap 21 mmol/L 05/02/16 09:44 BUN 41 mg/dL (9-20) H 05/02/16 09:44 Creatinine 6.2 mg/dL (0.8-1.5) H D 05/02/16 09:44 Estimated GFR 11 ml/min 05/02/16 09:44 BUN/Creatinine Ratio 6.61 % 05/02/16 09:44 Glucose 97 mg/dL (75-100) 05/02/16 09:44 POC Glucose 191 (70-105) H 05/02/16 16:22 Hemoglobin A1c 4.9 % (4-6) 04/30/16 16:33 Calcium 6.9 mg/dL (8.4-10.2) L 05/02/16 09:44 Phosphorus 7.8 mg/dL (2.5-4.5) H 04/30/16 16:33 Iron 86 ug/dL (49-181) 05/01/16 10:57 TIBC 247.80 mcg/dL (250-450) L 05/01/16 10:57 % Saturation 34.71 % 05/01/16 10:57 Transferrin 177 mg/dl (180-329) L 05/01/16 10:57 Ferritin 438.7 ng/mL (13.0-400.0) H 05/01/16 10:57 Total Bilirubin 0.2 mg/dL (0.1-1.2) 04/30/16 16:33 Direct Bilirubin < 0.2 mg/dL (0-0.2) 04/30/16 10:03 Indirect Bilirubin 0.0 mg/dL 04/30/16 10:03 AST 6 units/L (5-40) 04/30/16 16:33 ALT 5 units/L (7-56) L 04/30/16 16:33 Alkaline Phosphatase 102 units/L (35-129) 04/30/16 16:33 Troponin T 0.033 ng/mL (0.00-0.029) H 04/30/16 09:19 NT-Pro-B Natriuret Pep 72439 pg/mL (0-900) H 04/30/16 10:03 Total Protein 6.8 g/dL (6.3-8.2) 04/30/16 16:33 Albumin 3.6 g/dL (3.9-5) L 04/30/16 16:33 Albumin/Globulin Ratio 1.1 % 04/30/16 16:33 Triglycerides 143 mg/dL (2-149) 04/30/16 09:19 Cholesterol 181 mg/dL (50-199) 04/30/16 09:19 LDL Cholesterol Direct 120 mg/dL (50-130) 04/30/16 09:19 HDL Cholesterol 33 mg/dL (40-59) L 04/30/16 09:19 Cholesterol/HDL Ratio 5.48 % 04/30/16 09:19 Hepatitis A IgM Ab -1 (NonReactive) 04/30/16 21:26 Hep Bs Antigen Non-reactive (Negative) 04/30/16 21:26 Hep B Core IgM Ab Non-reactive (NonReactive) 04/30/16 21:26 Hepatitis C Antibody Non-reactive (NonReactive) 04/30/16 21:26 Blood Type O POSITIVE 04/30/16 10:03 Antibody Screen Negative 04/30/16 10:03 Crossmatch See Detail 04/30/16 10:03
[2016-05-03] MEDS ORDERED: ANCEF/STERILE WATER 2 GM/20 ML IV NR (08:00)
[2016-05-03] MEDS: NOVOLOG SUB-Q SCH ×4 (08:07→22:43)
[2016-05-03] MEDS: APRESOLINE PO SCH ×3 (08:46→22:35)
--- NOTE | 2016-05-03 09:16 | Progress Note ---
Assessment and Plan Impression * End stage renal disease - new * Pulmonary edema - resolved * Hyperkalemia - resolved * Metabolic acidosis * Anemia secondary to ESRD * Hypertension Plan: * Hemodialysis TTS; HD tomorrow * Epogen with dialysis; iron stores acceptable * Continue antiHTN medications * Renal diet * Await outpatient dialysis clinic placement - note reviewed Subjective Date of service: 05/03/16 Objective - Vital Signs Vital signs: Vital Signs - 12hr 05/02/16 05/02/16 05/02/16 21:34 22:08 22:15 Temperature Pulse Rate 81 Pulse Rate [ Right Dorsalis Pedis] Pulse Rate [ Right Radial] Respiratory Rate Blood Pressure 136/73 136/73 Blood Pressure [Right Arm] O2 Sat by Pulse 98 Oximetry 05/03/16 05/03/16 05/03/16 00:00 08:46 08:52 Temperature 98.3 F 97.5 F L Pulse Rate 80 Pulse Rate [ 80 Right Dorsalis Pedis] Pulse Rate [ 73 Right Radial] Respiratory 18 20 Rate Blood Pressure 168/81 Blood Pressure 147/79 168/81 [Right Arm] O2 Sat by Pulse 97 99 Oximetry - General Appearance General appearance: well-developed, well-nourished EENT: ATNC Respiratory: Present: Clear to Ascultation Cardiology: regular, S1S2 Gastrointestinal: normal Integumentary: no rash Neurologic: alert and oriented x3 Musculoskeletal: other (no edema) Psychiatric: cooperative - Lab 05/02/16 09:44 05/02/16 09:44 Most recent lab results Calcium 6.9 mg/dL (8.4-10.2) L 05/02/16 09:44 Phosphorus 7.8 mg/dL (2.5-4.5) H 04/30/16 16:33
[2016-05-03] MEDS: FEOSOL PO SCH (10:20)
[2016-05-03] MEDS: COZAAR PO SCH (10:20)
[2016-05-03] MEDS: NORVASC PO SCH (10:20)
[2016-05-03] MEDS: PROTONIX PO SCH (10:21)
[2016-05-03] MEDS: LASIX PO SCH (10:21)
[2016-05-03] MEDS: COREG PO SCH ×2 (10:22→22:36)
[2016-05-03] MEDS: BABY ASPIRIN PO SCH (10:22)
[2016-05-03] MEDS: HABITROL TD SCH (10:27)
[2016-05-03] MEDS: ZYLOPRIM PO SCH (10:31)
[2016-05-03] MEDS ORDERED: DUONEB 0.5 MG-3 MG/3 ML SOLN IH ONE (10:38)
[2016-05-03] MEDS: HEPARIN SUB-Q SCH ×2 (10:42→22:39)
[2016-05-03] MEDS: PROVENTIL IH PRN (11:00)
[2016-05-03] MEDS ORDERED: NACL 0.9% 250ML 250 ML ONE (11:53)
[2016-05-03] MEDS ORDERED: HEPARIN/NS 5000 UNIT/500ML(CATH LAB) 1,000 ML IR ONE (11:53)
[2016-05-03] MEDS ORDERED: ANCEF/STERILE WATER 2 GM/20 ML 20 ML IV ONE (11:53)
[2016-05-03] MEDS: VERSED ONE ×2 (12:22→12:25)
[2016-05-03] MEDS: SUBLIMAZE ONE ×2 (12:23→12:25)
[2016-05-03] MEDS: HEPARIN 10,000 UNITS/10 ML ONE ×2 (12:24→12:45)
[2016-05-03] MEDS: XYLOCAINE 1%/ EPI 1:100,000 INFILTRATI ONE ×2 (12:24→12:28)
--- NOTE | 2016-05-03 13:07 | Operative Report ---
Operative Report Operative Report: EXAM: 1. Ultrasound-guided puncture of the right internal jugular vein 2. Fluoroscopic-guided placement of a right internal jugular tunneled cuffed hemodialysis catheter. 3. Fluoroscopic-guided removal of a right common femoral vein non-tunneled non- cuffed hemodialysis catheter. DATE: 05/03/16 INDICATION: End-stage renal disease requiring hemodialysis access. MEDICATIONS: Please see nursing report for full details. DEVICES: 23 cm tip to cuff 15 Fr dual lumen hemodialysis catheter ENGLISH PROFESSOR: JOEY MORRIS MD CONTRAST: None PROCEDURE: The risks, benefits, and alternatives were discussed and informed consent was obtained. The patient was transported to the angiography suite in satisfactory/ stable condition and was transported onto the angiography table. The patient's right internal jugular vein was assessed with ultrasound and determined to be patent prior to procedure. The patient was prepped and draped in a sterile fashion. The puncture site was anesthetized. Under sonographic guidance, the right internal jugular vein was punctured with a 21-gauge micropuncture needle and a 0.018 inch wire was advanced into the inferior vena cava. The micropuncture needle was exchanged for a transitional dilator and the wire was retracted into the right atrium to mon[place] intravascular distance. The wire and inner dilator were removed. 0.035 inch wire was advanced through the transitional dilator into the inferior vena cava. A suitable exit site was identified on the patient's chest inferior and lateral to the venotomy. The site was anesthetized with local anesthetic and the track was anesthetized. Dermatotomy was made. The PermCath was attached to the tunneling device and tunneled between the dermatotomy to the venotomy. Over the 0.035 inch wire, serial dilatation was performed with ultimate placement of a peel-away sheath. The catheter was advanced through the peel- away sheath after the wire was removed and positioned centrally under fluoroscopic guidance. The peel-away sheath was removed. 3-0 Vicryl suture was used to close the venotomy and Dermabond was then applied. 2-0 Ethilon suture was used to secure the catheter at the dermatotomy. The catheter was charged with heparin 1000 units per mL of space. Sterile dressing applied. The right groin catheter sutures were then cut. The catheter was removed under fluoroscopic guidance and pressure was held until hemostasis was achieved. Sterile dressing applied. The patient was transferred from the angiography suite back to the floor in stable condition. FINDINGS: 1. Excellent flow was obtained through the dialysis catheter with 20 mL syringes. 2. The catheter tip is in the right atrium. IMPRESSION: 1. Successful ultrasound and fluoroscopically guided placement of a right internal jugular tunneled cuffed hemodialysis catheter.
--- NOTE | 2016-05-03 17:46 | Progress Note ---
Assessment and Plan Assessment and plan: --Acute renal failure/end stage renal disease/new hemodialysis Received hemodialysis yesterday, patient had tunneled HD catheter today Hemodialysis per schedule --Hyperkalemia; resolved --Fluid overload/pulmonary edema secondary to end-stage renal disease Dialysis w --Anemia secondary to end-stage renal disease Procrit during dialysis, closely monitor H&H transfuse as needed --Hypertension; moderate control, continue current antihypertensives And when necessary hydralazine --Type 2 diabetes mellitus; Accu-Chek sliding scale coverage and ADA diet and insulin Patient's hemoglobin A1c is less than 6 --Ongoing tobacco use; smoking cessation counseling done strongly advised nicotine patch Reason consequences of tobacco use discussed with the patient verbalized understanding I spent 10 minutes counseling smoking cessation --DVT prophylaxis; with heparin --DC planning. Case management outpatient hemodialysis clinic scheduling History Interval history: Patient underwent right internal jugular tunneled cuffed hemodialysis catheter today Right common femoral vein nontender non-cuffed hemodialysis catheter was removed Patient feels better no new complaints, on hemodialysis per schedule Denies chest pain shortness of breath Alert awake oriented 3 not in acute distress Hospitalist Physical - Constitutional Vitals: Temp Pulse Resp BP Pulse Ox 98.0 F 80 20 150/80 96 05/03/16 16:02 05/03/16 16:23 05/03/16 16:02 05/03/16 16:23 05/03/16 11:00 General appearance: Present: no acute distress, well-nourished - EENT Eyes: Present: PERRL, EOM intact - Neck Neck: Present: supple, normal ROM - Respiratory Respiratory effort: normal Respiratory: bilateral: diminished, negative: rales, rhonchi, wheezing - Cardiovascular Rhythm: regular Heart Sounds: Present: S1 & S2 - Extremities Extremities: no ischemia, pulses intact, pulses symmetrical Peripheral Pulses: within normal limits - Abdominal General gastrointestinal: soft, non-tender, non-distended, normal bowel sounds - Integumentary Integumentary: Present: clear, warm - Psychiatric Psychiatric: appropriate mood/affect, cooperative - Neurologic Neurologic: CNII-XII intact, moves all extremities Results - Labs CBC & Chem 7: 05/02/16 09:44 05/02/16 09:44 Labs: Laboratory Last Values WBC 11.3 K/mm3 (4.5-11.0) H 05/02/16 09:44 RBC 3.02 M/mm3 (3.65-5.03) L 05/02/16 09:44 Hgb 7.9 gm/dl (11.8-15.2) L 05/02/16 09:44 Hct 23.9 % (35.5-45.6) L 05/02/16 09:44 MCV 79 fl (84-94) L 05/02/16 09:44 MCH 26 pg (28-32) L 05/02/16 09:44 MCHC 33 % (32-34) 05/02/16 09:44 RDW 16.9 % (13.2-15.2) H 05/02/16 09:44 Plt Count 212 K/mm3 (140-440) 05/02/16 09:44 Lymph % (Auto) 12.8 % (13.4-35.0) L 05/02/16 09:44 [place] % (Auto) 13.3 % (0.0-7.3) H 05/02/16 09:44 Eos % (Auto) 2.7 % (0.0-4.3) 05/02/16 09:44 Baso % (Auto) 0.9 % (0.0-1.8) 05/02/16 09:44 Lymph # 1.4 K/mm3 (1.2-5.4) 05/02/16 09:44 [place] # 1.5 K/mm3 (0.0-0.8) H 05/02/16 09:44 Eos # 0.3 K/mm3 (0.0-0.4) 05/02/16 09:44 Baso # 0.1 K/mm3 (0.0-0.1) 05/02/16 09:44 Add Manual Diff Complete 04/30/16 16:33 Total Counted 100 04/30/16 16:33 Seg Neutrophils % 70.3 % (40.0-70.0) H 05/02/16 09:44 Seg Neuts % (Manual) 94.0 % (40.0-70.0) H 04/30/16 16:33 Band Neutrophils % 0 % 04/30/16 16:33 Lymphocytes % (Manual) 3.0 % (13.4-35.0) L 04/30/16 16:33 Reactive Lymphs % (Man) 0 % 04/30/16 16:33 Monocytes % (Manual) 0 % (0.0-7.3) 04/30/16 16:33 Eosinophils % (Manual) 0 % (0.0-4.3) 04/30/16 16:33 Basophils % (Manual) 3.0 % (0.0-1.8) H 04/30/16 16:33 Metamyelocytes % 0 % 04/30/16 16:33 Myelocytes % 0 % 04/30/16 16:33 Promyelocytes % 0 % 04/30/16 16:33 Blast Cells % 0 % 04/30/16 16:33 Nucleated RBC % Not Reportable 04/30/16 16:33 Seg Neutrophils # 8.0 K/mm3 (1.8-7.7) H 05/02/16 09:44 Seg Neutrophils # Man 9.1 K/mm3 (1.8-7.7) H 04/30/16 16:33 Band Neutrophils # 0.0 K/mm3 04/30/16 16:33 Lymphocytes # (Manual) 0.3 K/mm3 (1.2-5.4) L 04/30/16 16:33 Abs React Lymphs (Man) 0.0 K/mm3 04/30/16 16:33 Monocytes # (Manual) 0.0 K/mm3 (0.0-0.8) 04/30/16 16:33 Eosinophils # (Manual) 0.0 K/mm3 (0.0-0.4) 04/30/16 16:33 Basophils # (Manual) 0.3 K/mm3 (0.0-0.1) H 04/30/16 16:33 Metamyelocytes # 0.0 K/mm3 04/30/16 16:33 Myelocytes # 0.0 K/mm3 04/30/16 16:33 Promyelocytes # 0.0 K/mm3 04/30/16 16:33 Blast Cells # 0.0 K/mm3 04/30/16 16:33 WBC Morphology Not Reportable 04/30/16 16:33 Hypersegmented Neuts Not Reportable 04/30/16 16:33 Hyposegmented Neuts Not Reportable 04/30/16 16:33 Hypogranular Neuts Not Reportable 04/30/16 16:33 Smudge Cells Not Reportable 04/30/16 16:33 Toxic Granulation Not Reportable 04/30/16 16:33 Toxic Vacuolation Not Reportable 04/30/16 16:33 Dohle Bodies Not Reportable 04/30/16 16:33 Pelger-Huet Anomaly Not Reportable 04/30/16 16:33 Williams Rods Not Reportable 04/30/16 16:33 Platelet Estimate Appears normal 04/30/16 16:33 Clumped Platelets Not Reportable 04/30/16 16:33 Plt Clumps, EDTA Not Reportable 04/30/16 16:33 Large Platelets Not Reportable 04/30/16 16:33 Giant Platelets Not Reportable 04/30/16 16:33 Platelet Satelliting Not Reportable 04/30/16 16:33 Plt Morphology Comment Not Reportable 04/30/16 16:33 RBC Morphology Not Reportable 04/30/16 16:33 Dimorphic RBCs Not Reportable 04/30/16 16:33 Polychromasia Not Reportable 04/30/16 16:33 Hypochromasia 2+ 04/30/16 16:33 Poikilocytosis 1+ 04/30/16 16:33 Anisocytosis 1+ 04/30/16 16:33 Microcytosis 1+ 04/30/16 16:33 Macrocytosis Not Reportable 04/30/16 16:33 Spherocytes Not Reportable 04/30/16 16:33 Pappenheimer Bodies Not Reportable 04/30/16 16:33 Sickle Cells Not Reportable 04/30/16 16:33 Target Cells Few 04/30/16 16:33 Tear Drop Cells Not Reportable 04/30/16 16:33 Ovalocytes Not Reportable 04/30/16 16:33 Helmet Cells Not Reportable 04/30/16 16:33 [place] Bodies Not Reportable 04/30/16 16:33 [place] Rings Not Reportable 04/30/16 16:33 [place] Cells Not Reportable 04/30/16 16:33 Bite Cells Not Reportable 04/30/16 16:33 Crenated Cell Not Reportable 04/30/16 16:33 Elliptocytes Not Reportable 04/30/16 16:33 Acanthocytes (Spur) Not Reportable 04/30/16 16:33 Rouleaux Not Reportable 04/30/16 16:33 Hemoglobin C Crystals Not Reportable 04/30/16 16:33 Schistocytes Not Reportable 04/30/16 16:33 Malaria parasites Not Reportable 04/30/16 16:33 Arsh Bodies Not Reportable 04/30/16 16:33 Hem Pathologist Commnt No 04/30/16 16:33 PT 15.6 Sec. (12.2-14.9) H 04/30/16 10:03 INR 1.25 (0.87-1.13) H 04/30/16 10:03 APTT 47.9 Sec. (24.2-36.6) H 04/30/16 10:03 Sodium 141 mmol/L (137-145) 05/02/16 09:44 Potassium 4.1 mmol/L (3.6-5.0) D 05/02/16 09:44 Chloride 98.5 mmol/L (98-107) 05/02/16 09:44 Carbon Dioxide 26 mmol/L (22-30) D 05/02/16 09:44 Anion Gap 21 mmol/L 05/02/16 09:44 BUN 41 mg/dL (9-20) H 05/02/16 09:44 Creatinine 6.2 mg/dL (0.8-1.5) H D 05/02/16 09:44 Estimated GFR 11 ml/min 05/02/16 09:44 BUN/Creatinine Ratio 6.61 % 05/02/16 09:44 Glucose 97 mg/dL (75-100) 05/02/16 09:44 POC Glucose 214 (70-105) H 05/03/16 16:49 Hemoglobin A1c 4.9 % (4-6) 04/30/16 16:33 Calcium 6.9 mg/dL (8.4-10.2) L 05/02/16 09:44 Phosphorus 7.8 mg/dL (2.5-4.5) H 04/30/16 16:33 Iron 86 ug/dL (49-181) 05/01/16 10:57 TIBC 247.80 mcg/dL (250-450) L 05/01/16 10:57 % Saturation 34.71 % 05/01/16 10:57 Transferrin 177 mg/dl (180-329) L 05/01/16 10:57 Ferritin 438.7 ng/mL (13.0-400.0) H 05/01/16 10:57 Total Bilirubin 0.2 mg/dL (0.1-1.2) 04/30/16 16:33 Direct Bilirubin < 0.2 mg/dL (0-0.2) 04/30/16 10:03 Indirect Bilirubin 0.0 mg/dL 04/30/16 10:03 AST 6 units/L (5-40) 04/30/16 16:33 ALT 5 units/L (7-56) L 04/30/16 16:33 Alkaline Phosphatase 102 units/L (35-129) 04/30/16 16:33 Troponin T 0.033 ng/mL (0.00-0.029) H 04/30/16 09:19 NT-Pro-B Natriuret Pep 67334 pg/mL (0-900) H 04/30/16 10:03 Total Protein 6.8 g/dL (6.3-8.2) 04/30/16 16:33 Albumin 3.6 g/dL (3.9-5) L 04/30/16 16:33 Albumin/Globulin Ratio 1.1 % 04/30/16 16:33 Triglycerides 143 mg/dL (2-149) 04/30/16 09:19 Cholesterol 181 mg/dL (50-199) 04/30/16 09:19 LDL Cholesterol Direct 120 mg/dL (50-130) 04/30/16 09:19 HDL Cholesterol 33 mg/dL (40-59) L 04/30/16 09:19 Cholesterol/HDL Ratio 5.48 % 04/30/16 09:19 Hepatitis A IgM Ab -1 (NonReactive) 04/30/16 21:26 Hep Bs Antigen Non-reactive (Negative) 04/30/16 21:26 Hep B Core IgM Ab Non-reactive (NonReactive) 04/30/16 21:26 Hepatitis C Antibody Non-reactive (NonReactive) 04/30/16 21:26 Blood Type O POSITIVE 04/30/16 10:03 Antibody Screen Negative 04/30/16 10:03 Crossmatch See Detail 04/30/16 10:03
[2016-05-03] MEDS: DILAUDID IV PRN ×2 (22:05→22:45)
[2016-05-04 05:44] LABS: Basophils % (Auto) 0.7 % (0.0-1.8); Eosinophils % (Auto) 1.9 % (0.0-4.3); Hematocrit 23.5 % (35.5-45.6); Hemoglobin 7.8 gm/dl (11.8-15.2); Mean Corpuscular HGB Conc 33 % (32-34); Mean Corpuscular Hemoglobin 26 pg (28-32); Mean Corpuscular Volume 80 fl (84-94); Platelet Count 196 K/mm3 (140-440); Red Blood Count 2.95 M/mm3 (3.65-5.03); Red Cell Distribution Width 16.6 % (13.2-15.2); White Blood Count 13.1 K/mm3 (4.5-11.0)
[2016-05-04 06:00] LABS: BUN/Creatinine Ratio 5.84; Calcium 6.4 mg/dL (8.4-10.2)
[2016-05-04 06:01] LABS: Chloride 95.9 mmol/L (98-107); Potassium 4.3 mmol/L (3.6-5.0)
[2016-05-04] MEDS: NOVOLOG SUB-Q SCH ×4 (07:30→22:40)
[2016-05-04] MEDS: PERCOCET 5/325 PO PRN ×2 (08:17→22:51)
[2016-05-04] MEDS ORDERED: NAPROSYN PO ONE (08:22)
[2016-05-04] MEDS ORDERED: NACL 0.9% 1000 ML 100 ML IV PRN (09:28)
[2016-05-04] MEDS: HABITROL TD SCH (09:39)
[2016-05-04] MEDS: APRESOLINE PO SCH ×3 (10:56→22:42)
[2016-05-04] MEDS: HEPARIN IV PRN (13:55)
[2016-05-04] MEDS: LASIX PO SCH (14:28)
[2016-05-04] MEDS: BABY ASPIRIN PO SCH (14:28)
[2016-05-04] MEDS: ZYLOPRIM PO SCH (14:28)
[2016-05-04] MEDS: FEOSOL PO SCH (14:28)
[2016-05-04] MEDS: COZAAR PO SCH (14:30)
[2016-05-04] MEDS: NORVASC PO SCH (14:30)
[2016-05-04] MEDS: COREG PO SCH ×2 (14:31→22:43)
[2016-05-04] MEDS: HEPARIN SUB-Q SCH ×2 (14:31→22:40)
[2016-05-04] MEDS: PROTONIX PO SCH (14:45)
--- NOTE | 2016-05-04 15:49 | Progress Note ---
Assessment and Plan Assessment and plan: --bilateral ankle pain/probably gout exacerbation Continue allopurinol, add NSAIDs --end stage renal disease/new hemodialysis Received hemodialysis yesterday, patient had tunneled HD catheter today Hemodialysis per schedule --Hyperkalemia; corrected --Fluid overload/pulmonary edema secondary to end-stage renal disease Improved with Dialysis --Anemia secondary to end-stage renal disease Procrit during dialysis, closely monitor H&H transfuse as needed --Hypertension; moderate control, continue current antihypertensives And when necessary hydralazine --Type 2 diabetes mellitus; Accu-Chek sliding scale coverage and ADA diet and insulin Patient's hemoglobin A1c is less than 6 --Ongoing tobacco use; smoking cessation counseling done strongly advised nicotine patch Reason consequences of tobacco use discussed with the patient verbalized understanding I spent 10 minutes counseling smoking cessation --DVT prophylaxis; with heparin --DC planning. Case management outpatient hemodialysis clinic scheduling History Interval history: Patient seen and evaluated medical records reviewed No new events reported by the nursing staff However patient complains of bilateral ankle pain, probably secondary to gout exacerbation Denies any fever Receives hemodialysis per schedule Awaiting outpatient HD scheduling Hospitalist Physical - Constitutional Vitals: Temp Pulse Resp BP Pulse Ox 98.2 F 98 H 22 122/62 98 05/04/16 15:10 05/04/16 15:10 05/04/16 15:10 05/04/16 15:10 05/04/16 15:10 General appearance: Present: no acute distress, well-nourished - EENT Eyes: Present: PERRL, EOM intact - Neck Neck: Present: supple, normal ROM - Respiratory Respiratory effort: normal Respiratory: bilateral: diminished, rales, negative: rhonchi, wheezing - Cardiovascular Rhythm: regular Heart Sounds: Present: S1 & S2 - Extremities Extremities: no ischemia, pulses intact, pulses symmetrical, abnormal (minimal swelling on bilateral ankles) Peripheral Pulses: within normal limits - Abdominal General gastrointestinal: soft, non-tender, non-distended, normal bowel sounds - Integumentary Integumentary: Present: clear, warm - Psychiatric Psychiatric: appropriate mood/affect, cooperative - Neurologic Neurologic: CNII-XII intact, moves all extremities Results - Labs CBC & Chem 7: 05/04/16 05:19 05/04/16 05:19 Labs: Laboratory Last Values WBC 13.1 K/mm3 (4.5-11.0) H 05/04/16 05:19 RBC 2.95 M/mm3 (3.65-5.03) L 05/04/16 05:19 Hgb 7.8 gm/dl (11.8-15.2) L 05/04/16 05:19 Hct 23.5 % (35.5-45.6) L 05/04/16 05:19 MCV 80 fl (84-94) L 05/04/16 05:19 MCH 26 pg (28-32) L 05/04/16 05:19 MCHC 33 % (32-34) 05/04/16 05:19 RDW 16.6 % (13.2-15.2) H 05/04/16 05:19 Plt Count 196 K/mm3 (140-440) 05/04/16 05:19 Lymph % (Auto) 9.0 % (13.4-35.0) L 05/04/16 05:19 [place] % (Auto) 12.1 % (0.0-7.3) H 05/04/16 05:19 Eos % (Auto) 1.9 % (0.0-4.3) 05/04/16 05:19 Baso % (Auto) 0.7 % (0.0-1.8) 05/04/16 05:19 Lymph # 1.2 K/mm3 (1.2-5.4) 05/04/16 05:19 [place] # 1.6 K/mm3 (0.0-0.8) H 05/04/16 05:19 Eos # 0.3 K/mm3 (0.0-0.4) 05/04/16 05:19 Baso # 0.1 K/mm3 (0.0-0.1) 05/04/16 05:19 Add Manual Diff Complete 04/30/16 16:33 Total Counted 100 04/30/16 16:33 Seg Neutrophils % 76.3 % (40.0-70.0) H 05/04/16 05:19 Seg Neuts % (Manual) 94.0 % (40.0-70.0) H 04/30/16 16:33 Band Neutrophils % 0 % 04/30/16 16:33 Lymphocytes % (Manual) 3.0 % (13.4-35.0) L 04/30/16 16:33 Reactive Lymphs % (Man) 0 % 04/30/16 16:33 Monocytes % (Manual) 0 % (0.0-7.3) 04/30/16 16:33 Eosinophils % (Manual) 0 % (0.0-4.3) 04/30/16 16:33 Basophils % (Manual) 3.0 % (0.0-1.8) H 04/30/16 16:33 Metamyelocytes % 0 % 04/30/16 16:33 Myelocytes % 0 % 04/30/16 16:33 Promyelocytes % 0 % 04/30/16 16:33 Blast Cells % 0 % 04/30/16 16:33 Nucleated RBC % Not Reportable 04/30/16 16:33 Seg Neutrophils # 10.0 K/mm3 (1.8-7.7) H 05/04/16 05:19 Seg Neutrophils # Man 9.1 K/mm3 (1.8-7.7) H 04/30/16 16:33 Band Neutrophils # 0.0 K/mm3 04/30/16 16:33 Lymphocytes # (Manual) 0.3 K/mm3 (1.2-5.4) L 04/30/16 16:33 Abs React Lymphs (Man) 0.0 K/mm3 04/30/16 16:33 Monocytes # (Manual) 0.0 K/mm3 (0.0-0.8) 04/30/16 16:33 Eosinophils # (Manual) 0.0 K/mm3 (0.0-0.4) 04/30/16 16:33 Basophils # (Manual) 0.3 K/mm3 (0.0-0.1) H 04/30/16 16:33 Metamyelocytes # 0.0 K/mm3 04/30/16 16:33 Myelocytes # 0.0 K/mm3 04/30/16 16:33 Promyelocytes # 0.0 K/mm3 04/30/16 16:33 Blast Cells # 0.0 K/mm3 04/30/16 16:33 WBC Morphology Not Reportable 04/30/16 16:33 Hypersegmented Neuts Not Reportable 04/30/16 16:33 Hyposegmented Neuts Not Reportable 04/30/16 16:33 Hypogranular Neuts Not Reportable 04/30/16 16:33 Smudge Cells Not Reportable 04/30/16 16:33 Toxic Granulation Not Reportable 04/30/16 16:33 Toxic Vacuolation Not Reportable 04/30/16 16:33 Dohle Bodies Not Reportable 04/30/16 16:33 Pelger-Huet Anomaly Not Reportable 04/30/16 16:33 [place] Rods Not Reportable 04/30/16 16:33 Platelet Estimate Appears normal 04/30/16 16:33 Clumped Platelets Not Reportable 04/30/16 16:33 Plt Clumps, EDTA Not Reportable 04/30/16 16:33 Large Platelets Not Reportable 04/30/16 16:33 Giant Platelets Not Reportable 04/30/16 16:33 Platelet Satelliting Not Reportable 04/30/16 16:33 Plt Morphology Comment Not Reportable 04/30/16 16:33 RBC Morphology Not Reportable 04/30/16 16:33 Dimorphic RBCs Not Reportable 04/30/16 16:33 Polychromasia Not Reportable 04/30/16 16:33 Hypochromasia 2+ 04/30/16 16:33 Poikilocytosis 1+ 04/30/16 16:33 Anisocytosis 1+ 04/30/16 16:33 Microcytosis 1+ 04/30/16 16:33 Macrocytosis Not Reportable 04/30/16 16:33 Spherocytes Not Reportable 04/30/16 16:33 Pappenheimer Bodies Not Reportable 04/30/16 16:33 Sickle Cells Not Reportable 04/30/16 16:33 Target Cells Few 04/30/16 16:33 Tear Drop Cells Not Reportable 04/30/16 16:33 Ovalocytes Not Reportable 04/30/16 16:33 Helmet Cells Not Reportable 04/30/16 16:33 [place] Bodies Not Reportable 04/30/16 16:33 [place] Rings Not Reportable 04/30/16 16:33 [place] Cells Not Reportable 04/30/16 16:33 Bite Cells Not Reportable 04/30/16 16:33 Crenated Cell Not Reportable 04/30/16 16:33 Elliptocytes Not Reportable 04/30/16 16:33 Acanthocytes (Spur) Not Reportable 04/30/16 16:33 Rouleaux Not Reportable 04/30/16 16:33 Hemoglobin C Crystals Not Reportable 04/30/16 16:33 Schistocytes Not Reportable 04/30/16 16:33 Malaria parasites Not Reportable 04/30/16 16:33 Arsh Bodies Not Reportable 04/30/16 16:33 Hem Pathologist Commnt No 04/30/16 16:33 PT 15.6 Sec. (12.2-14.9) H 04/30/16 10:03 INR 1.25 (0.87-1.13) H 04/30/16 10:03 APTT 47.9 Sec. (24.2-36.6) H 04/30/16 10:03 Sodium 137 mmol/L (137-145) 05/04/16 05:19 Potassium 4.3 mmol/L (3.6-5.0) 05/04/16 05:19 Chloride 95.9 mmol/L (98-107) L 05/04/16 05:19 Carbon Dioxide 24 mmol/L (22-30) 05/04/16 05:19 Anion Gap 21 mmol/L 05/04/16 05:19 BUN 38 mg/dL (9-20) H 05/04/16 05:19 Creatinine 6.5 mg/dL (0.8-1.5) H 05/04/16 05:19 Estimated GFR 10 ml/min 05/04/16 05:19 BUN/Creatinine Ratio 5.84 % 05/04/16 05:19 Glucose 120 mg/dL (75-100) H 05/04/16 05:19 POC Glucose 107 (70-105) H 05/04/16 06:29 Hemoglobin A1c 4.9 % (4-6) 04/30/16 16:33 Calcium 6.4 mg/dL (8.4-10.2) L 05/04/16 05:19 Phosphorus 7.8 mg/dL (2.5-4.5) H 04/30/16 16:33 Iron 86 ug/dL (49-181) 05/01/16 10:57 TIBC 247.80 mcg/dL (250-450) L 05/01/16 10:57 % Saturation 34.71 % 05/01/16 10:57 Transferrin 177 mg/dl (180-329) L 05/01/16 10:57 Ferritin 438.7 ng/mL (13.0-400.0) H 05/01/16 10:57 Total Bilirubin 0.2 mg/dL (0.1-1.2) 04/30/16 16:33 Direct Bilirubin < 0.2 mg/dL (0-0.2) 04/30/16 10:03 Indirect Bilirubin 0.0 mg/dL 04/30/16 10:03 AST 6 units/L (5-40) 04/30/16 16:33 ALT 5 units/L (7-56) L 04/30/16 16:33 Alkaline Phosphatase 102 units/L (35-129) 04/30/16 16:33 Troponin T 0.033 ng/mL (0.00-0.029) H 04/30/16 09:19 NT-Pro-B Natriuret Pep 65945 pg/mL (0-900) H 04/30/16 10:03 Total Protein 6.8 g/dL (6.3-8.2) 04/30/16 16:33 Albumin 3.6 g/dL (3.9-5) L 04/30/16 16:33 Albumin/Globulin Ratio 1.1 % 04/30/16 16:33 Triglycerides 143 mg/dL (2-149) 04/30/16 09:19 Cholesterol 181 mg/dL (50-199) 04/30/16 09:19 LDL Cholesterol Direct 120 mg/dL (50-130) 04/30/16 09:19 HDL Cholesterol 33 mg/dL (40-59) L 04/30/16 09:19 Cholesterol/HDL Ratio 5.48 % 04/30/16 09:19 Hepatitis A IgM Ab -1 (NonReactive) 04/30/16 21:26 Hep Bs Antigen Non-reactive (Negative) 04/30/16 21:26 Hep B Core IgM Ab Non-reactive (NonReactive) 04/30/16 21:26 Hepatitis C Antibody Non-reactive (NonReactive) 04/30/16 21: Blood Type O POSITIVE 04/30/16 10:03 Antibody Screen Negative 04/30/16 10:03 Crossmatch See Detail 04/30/16 10:03
--- NOTE | 2016-05-04 17:24 | Progress Note ---
Assessment and Plan Impression * End stage renal disease - new * Pulmonary edema - resolved * Hyperkalemia - resolved * Metabolic acidosis * Anemia secondary to ESRD * Hypertension Plan: * Hemodialysis today * Epogen with dialysis; iron stores acceptable * Continue antiHTN medications * Renal diet * Await outpatient dialysis clinic placement - note reviewed Subjective Date of service: 05/04/16 Interval history: Patient seen on dialysis. He reports that he is feeling better. Denies SOB Objective - Vital Signs Vital signs: Vital Signs - 12hr 05/04/16 05/04/16 05/04/16 07:37 09:50 09:55 Temperature 98.6 F 98.4 F Pulse Rate 79 78 Pulse Rate [ 77 Right Dorsalis Pedis] Respiratory 16 18 Rate Blood Pressure 152/83 167/79 Blood Pressure 135/77 [Right Arm] O2 Sat by Pulse 99 Oximetry 05/04/16 05/04/16 05/04/16 10:00 10:15 10:30 Temperature Pulse Rate 78 78 75 Pulse Rate [ Right Dorsalis Pedis] Respiratory Rate Blood Pressure 167/79 166/78 163/80 Blood Pressure [Right Arm] O2 Sat by Pulse Oximetry 05/04/16 05/04/16 05/04/16 10:45 11:00 11:15 Temperature Pulse Rate 78 78 76 Pulse Rate [ Right Dorsalis Pedis] Respiratory Rate Blood Pressure 152/78 157/81 162/81 Blood Pressure [Right Arm] O2 Sat by Pulse Oximetry 05/04/16 05/04/16 05/04/16 11:30 11:45 12:00 Temperature Pulse Rate 78 76 75 Pulse Rate [ Right Dorsalis Pedis] Respiratory Rate Blood Pressure 150/81 168/87 164/88 Blood Pressure [Right Arm] O2 Sat by Pulse Oximetry 05/04/16 05/04/16 05/04/16 12:15 12:30 12:45 Temperature Pulse Rate 73 74 73 Pulse Rate [ Right Dorsalis Pedis] Respiratory Rate Blood Pressure 165/83 164/86 161/93 Blood Pressure [Right Arm] O2 Sat by Pulse Oximetry 05/04/16 05/04/16 05/04/16 13:00 13:15 13:30 Temperature Pulse Rate 77 81 78 Pulse Rate [ Right Dorsalis Pedis] Respiratory Rate Blood Pressure 122/78 159/91 169/92 Blood Pressure [Right Arm] O2 Sat by Pulse Oximetry 05/04/16 05/04/16 13:40 15:10 Temperature 99.0 F 98.2 F Pulse Rate 78 Pulse Rate [ 98 H Right Dorsalis Pedis] Respiratory 24 22 Rate Blood Pressure 169/92 Blood Pressure 122/62 [Right Arm] O2 Sat by Pulse 98 Oximetry - General Appearance General appearance: well-developed, well-nourished EENT: ATNC Respiratory: Present: Decreased Breath Sounds Cardiology: regular, S1S2 Gastrointestinal: normal, no tenderness, no distended Integumentary: no rash Neurologic: no focal deficit Musculoskeletal: other (no edema) Psychiatric: cooperative - Lab 05/04/16 05:19 05/04/16 05:19 Most recent lab results Calcium 6.4 mg/dL (8.4-10.2) L 05/04/16 05:19 Phosphorus 7.8 mg/dL (2.5-4.5) H 04/30/16 16:33
[2016-05-04] MEDS ORDERED: NAPROSYN PO PRN (20:00)
[2016-05-05] MEDS: NOVOLOG SUB-Q SCH ×2 (07:30→11:51)
[2016-05-05] MEDS: HEPARIN SUB-Q SCH (09:13)
[2016-05-05] MEDS: PERCOCET 5/325 PO PRN (09:14)
[2016-05-05] MEDS: COZAAR PO SCH (09:14)
[2016-05-05] MEDS: NORVASC PO SCH (09:14)
[2016-05-05] MEDS: BABY ASPIRIN PO SCH (09:15)
[2016-05-05] MEDS: LASIX PO SCH (09:15)
[2016-05-05] MEDS: APRESOLINE PO SCH ×2 (09:15→15:27)
[2016-05-05] MEDS: COREG PO SCH (09:16)
[2016-05-05] MEDS: ZYLOPRIM PO SCH (09:16)
[2016-05-05] MEDS: FEOSOL PO SCH (09:16)
[2016-05-05] MEDS: HABITROL TD SCH (09:16)
[2016-05-05] MEDS: PROTONIX PO SCH (09:18)
--- NOTE | 2016-05-05 11:15 | Progress Note ---
Assessment and Plan Impression * End stage renal disease - new * Pulmonary edema - resolved * Hyperkalemia - resolved * Metabolic acidosis * Anemia secondary to ESRD * Hypertension Plan: * Patient had uneventful hemodialysis yesterday . * His CHF and hyperkalemia has resolved * Epogen with dialysis; iron stores acceptable * Continue antiHTN medications * Renal diet * Outpatient dialysis has been arranged at [facility] on Wednesdays and Fridays at 3:30 PM. Patient however states that he lives closer to [facility]. If unable to get him set up to [facility] at this time, would be still okay to discharge him. We will work on transferring him as outpatient. Patient advised about the same. He can wait until Sunday for his next dialysis treatment Subjective Date of service: 05/05/16 Interval history: Patient feels much better today. Denies any shortness of breath. No nausea or vomiting Objective - Vital Signs Vital signs: Vital Signs - 12hr 05/05/16 05/05/16 01:13 08:06 Temperature 98.2 F 98.7 F Pulse Rate [ 74 Right Dorsalis Pedis] Pulse Rate [ 72 Right Radial] Respiratory 20 22 Rate Blood Pressure 118/60 103/50 [Right Arm] O2 Sat by Pulse 98 99 Oximetry - General Appearance General appearance: well-developed, well-nourished, appears stated age EENT: PERRL, mucous membranes moist Neck: no JVD, no thyromegaly, no carotid bruit, supple, other (right IJ PermCath in place) Respiratory: Present: Clear to Ascultation Cardiology: regular, normal heart rate, S1S2, no murmurs Gastrointestinal: normal, normoactive bowel sounds Integumentary: no rash, other (trace edema) - Lab 05/04/16 05:19 05/04/16 05:19 Most recent lab results Calcium 6.4 mg/dL (8.4-10.2) L 05/04/16 05:19 Phosphorus 7.8 mg/dL (2.5-4.5) H 04/30/16 16:33
--- NOTE | 2016-05-05 11:38 | Discharge Summary ---
Providers - Providers Date of Admission: 04/30/16 14:29 Date of discharge: 05/05/16 Attending physician: DONNIE GUERRA 04/30/16 16:21 Consult to Dietitian/Nutrition [CONS] Routine Physician Instructions: Reason For Exam: Reason for Consult: Diet education 04/30/16 16:44 Consult to Physician [CONS] Routine Consulting Provider: ISAAC JONES Reason For Exam: CHF exacerbation Place consult to:: dr jones Notified:: [facility] [place] Phone number called:: [phone] Was contact made?: Yes If yes, spoke with:: place on list Time called:: 17:04 05/01/16 11:58 Consult to Case Management [CONS] Routine Services Needed at Discharge: Other Notified:: brennan Phone number called:: . Additional Physician Instructions: OUTPATIENT DIALYSIS CLINIC PLACEMENT Primary care physician: HEEL ATTACHER Hospitalization Reason for admission: worsening shortness of breath/acute renal failure Condition: Stable Hospital course: 71-year-old male patient was admitted with acute renal failure evaluated by nephrology and patient underwent hemodialysis, had hyperkalemia which was corrected as well as anemia secondary to end-stage renal disease patient received Procrit during hemodialysis H&H was closely monitored Blood pressures were closely monitored and medications were optimized Patient elevated blood sugars was covered with Accu-Cheks and ADA diet patient' s hemoglobin A1c is less than 6 Patient also has ongoing tobacco use counseling done strongly advised to quit tobacco use, spent 10 minutes counseling the patient Initially patient was admitted to ICU vectors stabilized and transferred to medical floor office services clerk have evaluated the patient and set up outpatient hemodialysis On the day of discharge, patient was comfortable in bed Alert awake oriented 3, vital signs are stable [id number] evaluation and physical examination done by me prior to discharge did not show any new changes Hemodynamically and clinically stable for discharge, follow up with his renal and hemodialysis per schedule as well as primary care physician Disposition: DC/TX HOME UNDER HOME HEALTH Time spent for discharge: 33 min - Discharge Diagnoses (1) MARGARET (acute kidney injury) Status: Acute (2) Hyperkalemia Status: Acute (3) Diabetes mellitus Status: Chronic Qualifiers: Diabetes mellitus type: type 2 Diabetes mellitus complication status: D Diabetes mellitus complication detail: D Diabetic retinopathy severity: D Proliferative retinopathy type: P Diabetes mellitus macular edema: D Diabetes mellitus emt intermediate insulin use: D Laterality: L Chronic kidney disease stage: C (4) Hyperlipidemia Status: Chronic Qualifiers: Hyperlipidemia type: H (5) Hypertension, benign Status: Chronic (6) Gout Status: Acute Qualifiers: Gout site: G Gout etiology: G Encounter type: E Laterality: L Chronicity: C Presence of tophus: P (7) Hyperkalemia Status: Acute Core Measure Documentation - Palliative Care Palliative Care/ Comfort Measures: Not Applicable - Core Measures Any of the following diagnoses?: none Exam - Constitutional Vitals: Temp Pulse Resp BP Pulse Ox 98.7 F 72 22 103/50 99 05/05/16 08:06 05/05/16 08:06 05/05/16 08:06 05/05/16 08:06 05/05/16 08:06 General appearance: Present: no acute distress, well-nourished - EENT Eyes: Present: PERRL, EOM intact - Neck Neck: Present: supple, normal ROM - Respiratory Respiratory effort: normal Respiratory: bilateral: diminished, rales, rhonchi - Cardiovascular Rhythm: regular Heart Sounds: Present: S1 & S2 - Extremities Extremities: no ischemia, pulses intact, pulses symmetrical Peripheral Pulses: within normal limits - Abdominal General gastrointestinal: Present: soft, non-tender, non-distended, normal bowel sounds - Integumentary Integumentary: Present: clear, warm - Musculoskeletal Musculoskeletal: strength equal bilaterally, generalized weakness - Psychiatric Psychiatric: appropriate mood/affect, cooperative - Neurologic Neurologic: CNII-XII intact, moves all extremities Plan Activity: no restrictions Diet: diabetic, renal Additional Instructions: Renal/hemodialysis per schedule Follow up with: PRIMARY CARE, [Primary Care Provider] - 3-5 Days Prescriptions: Carvedilol [Coreg] 25 mg PO BID #60 tablet Nicotine [Habitrol] 14 mg TD QDAY #30 patch hydrALAZINE [Apresoline TAB] 75 mg PO TID #90 tablet oxyCODONE /ACETAMINOPHEN [Percocet 5/325 mg] 1 tab PO Q12H PRN #14 tablet PRN Reason: Pain, Moderate (4-6)
--- NOTE | 2016-05-05 13:39 | Vascular Lab Report ---
MISCELLANEOUS VESSEL IDENTIFICATION: COMMENTS ON THE SCAN: The right internal jugular vein was identified and under real-time ultrasound guidance was cannulated. IMPRESSION: Successful ultrasound guided vein cannulation.
[2016-05-05 17:59] VITALS: BP 134/65
== END 2016-05-05 20:08 | disposition home health service (06) | DRG 291 ==
LOC: ED 08:49 → CC1 14:29 → 3A 05-01 11:08
PROVIDERS: ADMIT Internal Medicine; ATTEND Internal Medicine
PROC: 06HM33Z Insertion of Infusion Device into Right Femoral Vein, Percutaneous Approach (ICD-10-PCS; principal; 2016-04-30)
PROC: B54BZZA Ultrasonography of Right Lower Extremity Veins, Guidance (ICD-10-PCS; 2016-04-30)
PROC: 5A1D60Z (ICD-10-PCS; 2016-04-30)
PROC: 30233N1 Transfusion of Nonautologous Red Blood Cells into Peripheral Vein, Percutaneous Approach (ICD-10-PCS; 2016-05-01)
PROC: 05HM33Z Insertion of Infusion Device into Right Internal Jugular Vein, Percutaneous Approach (ICD-10-PCS; 2016-05-03)
PROC: B5131ZA Fluoroscopy of Right Jugular Veins using Low Osmolar Contrast, Guidance (ICD-10-PCS; 2016-05-03)
PROC: B543ZZA Ultrasonography of Right Jugular Veins, Guidance (ICD-10-PCS; 2016-05-03)
PROC: 06PYX3Z Removal of Infusion Device from Lower Vein, External Approach (ICD-10-PCS; 2016-05-03)
DX: I13.2 Hypertensive heart and chronic kidney disease with heart failure and with stage 5 chronic kidney disease, or end stage renal disease (principal); I50.23 Acute on chronic systolic (congestive) heart failure; N18.6 End stage renal disease; E87.2 Acidosis; J44.1 Chronic obstructive pulmonary disease with (acute) exacerbation; J90 Pleural effusion, not elsewhere classified; N17.9 Acute kidney failure, unspecified; E11.22 Type 2 diabetes mellitus with diabetic chronic kidney disease; E78.5 Hyperlipidemia, unspecified; E87.5 Hyperkalemia; D63.1 Anemia in chronic kidney disease; F17.210 Nicotine dependence, cigarettes, uncomplicated; K21.9 Gastro-esophageal reflux disease without esophagitis; M25.572 Pain in left ankle and joints of left foot; M25.571 Pain in right ankle and joints of right foot; Z99.2 Dependence on renal dialysis; Z79.82 Long term (current) use of aspirin; Z79.899 Other long term (current) drug therapy; Z79.4 Long term (current) use of insulin; Z82.49 Family history of ischemic heart disease and other diseases of the circulatory system; Z71.6 Tobacco abuse counseling
CPT/HCPCS: 36415; 36558; 71020; 76937; 77001; 80048; 80053; 80061; 80074; 82728; 82962; 83036; 83550; 83880; 84100; 84484; 85007; 85025; 85610; 85730; 86850; 86900; 86901; 86920; 93005; 93010; 93306; 94640; 94760; 96365; 96375; 99291; 99292; A9270-GY; C1750; C9113; J0360; J0610; J0690; J0885; J1170; J1644; J1815; J2250; J3010; J7030; J7050; P9016

== ENCOUNTER 2016-06-26 06:08 | Day surgery (SDC) | payer MEDICARE ==
[~2016-06-26 06:08] MED LIST: ANCEF/STERILE WATER 2 GM/20 ML 2 GM/20 ML SYRINGE IV NR; NACL 0.9% 1000 ML 1,000 ML IV SCH
[2016-06-26] MEDS ORDERED: PEPCID PO NR (07:00)
[2016-06-26] MEDS ORDERED: DIPRIVAN 10 MG/ML IV ONE (07:03)
[2016-06-26] MEDS ORDERED: DILAUDID ONE (07:04)
--- NOTE | 2016-06-26 07:04 | Anesthesia Consultation ---
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
--- NOTE | 2016-06-26 07:04 | Anesthesia Day of Surgery ---
Anesthesia Day of Surgery - Day of Surgery Patient Examined: Yes Patient H&P Reviewed: Yes Patient is NPO: Yes
[2016-06-26] MEDS ORDERED: NACL 0.9% 250ML ONE (08:00)
[2016-06-26] MEDS ORDERED: XYLOCAINE MPF 2% ONE (08:47)
[2016-06-26] MEDS ORDERED: NACL 0.9% 100 ML ONE (08:47)
[2016-06-26] MEDS ORDERED: NEO SYNEPHRINE ONE (08:47)
[2016-06-26] MEDS ORDERED: MARCAINE 0.5% INFILTRATI ONE (09:00)
[2016-06-26] MEDS ORDERED: HEPARIN 10,000 UNITS/10 ML 1,000 UNIT in NACL 0.9% 250ML 250 ML IR ONE (09:00)
[2016-06-26] MEDS ORDERED: NACL 0.9% IR ONE (09:00)
[2016-06-26] MEDS ORDERED: ZOFRAN ONE (09:02)
[2016-06-26] MEDS ORDERED: ZOFRAN IV PRN (09:21)
[2016-06-26] MEDS: DILAUDID IV PRN ×2 (10:12→10:27)
--- NOTE | 2016-06-26 10:16 | Short Stay Summary ---
Short Stay Documentation Date of service: 06/26/16 Narrative H&P: See H&P - History H&P: obtained from office - Allergies and Medications Current Medications: Allergies No Known Allergies Allergy (Verified 11/06/14 11:35) Home Medications Medication Instructions Recorded Confirmed Last Taken Type Aspirin [Aspirin BABY CHEW TAB] 81 mg PO DAILY 04/09/13 06/23/16 04/27/13 08:00 History 81mg amLODIPine [Norvasc] 10 mg PO DAILY 04/09/13 06/23/16 04/27/13 08:00 History 10 mg Allopurinol [Zyloprim] 100 mg PO QDAY 11/06/14 06/23/16 Unknown History Atorvastatin Calcium [Lipitor] 10 mg PO QHS 11/06/14 06/23/16 Unknown History Pantoprazole Sodium 40 mg PO QDAY 11/06/14 06/23/16 Unknown History Famotidine [Pepcid] 20 mg PO BID 04/30/16 06/23/16 Unknown History Ferrous Sulfate [Feosol 325 MG tab] 325 mg PO QDAY 04/30/16 06/23/16 Unknown History Furosemide [Lasix TAB] 20 mg PO QDAY 04/30/16 06/23/16 Unknown History Insulin NPH/Regular [NovoLIN 70/30] 15 unit SUB-Q BID 04/30/16 06/23/16 Unknown History Sodium Bicarbonate 650 mg PO BID 04/30/16 06/23/16 Unknown History Carvedilol [Coreg] 25 mg PO BID #60 tablet 05/05/16 06/23/16 Unknown Rx hydrALAZINE [Apresoline TAB] 75 mg PO TID #90 tablet 05/05/16 06/23/16 Unknown Rx Active Medications Hydromorphone HCl (Dilaudid) 0.5 mg IV Q10MIN PRN PRN Reason: Pain , Severe (7-10) Stop: 06/26/16 18:00 Cefazolin Sodium (Ancef/Sterile Water 2 Gm/20 Ml) 2 gm in 20 mls @ 80 mls/hr IV PREOP NR PRN Reason: Protocol Stop: 06/26/16 23:59 Sodium Chloride (Nacl 0.9% 1000 Ml) 1,000 mls @ 42 mls/hr IV DIRECT ZARINA Last Admin: 06/26/16 06:57 Dose: 42 mls/hr Ondansetron HCl (Zofran) 4 mg IV ONCE PRN PRN Reason: Nausea And Vomiting Stop: 06/26/16 16:00 - Brief post op/procedure progress note Date of procedure: 06/26/16 Pre-op diagnosis: End-Stage Renal Disease Post-op diagnosis: same Procedure: Creation of Left Brachiobasilic Arteriovenous Fistula Anesthesia: JIMMY Surgeon: KIRBY GARCIA Estimated blood loss: minimal Pathology: none Condition: stable - Disposition Condition at discharge: Good Disposition: DISCHARGED TO HOME OR SELFCARE Short Stay Discharge Plan Activity: other (no heavy lifting with left arm) Wound: open to air, keep clean and dry (okay to wash the wound with soap and water but do not soak in water) Follow up with: KIRBY GARCIA MD [Staff Physician] - 14 Days Prescriptions: HYDROcodone/APAP 7.5-325 [[place] 7.5/325] 1 each PO Q6HR PRN #50 tablet PRN Reason: Pain
--- NOTE | 2016-06-26 10:18 | Operative Report ---
Operative Report Operative Report: Date of procedure: 06/26/2016 Pre-operative diagnosis: End-stage Renal Disease Post-operative diagnosis: End-stage Renal Disease Procedure(s): Creation of Left Brachial Artery to Basilic Arteriovenous Fistula Surgeon: Gorge Dunbar MD Industrial Plant Custodian: None Anesthesia: Gen. endotracheal anesthesia EBL: Minimal Counts: Correct Complications: None Condition: Stable Findings: Successful creation of brachiobasilic arteriovenous fistula with excellent thrill and palpable radial pulse at the end of the case. Specimen: None Indication: The patient is a 71-year-old male with history of end-stage renal disease who is in need of long-term access. He had a vein size in the demonstrating was adequate candidate for creation of a fistula. He was given the risks, benefits , and alternative procedures and consented to the procedure. Description of Procedure: The patient was brought to the operating room and laid in supine position after general endotracheal anesthesia was administered the patient was prepped and draped in normal sterile fashion. After anesthetizing the skin a transverse incision was created just below the antecubital crease. Dissection was carried down to the the basilic vein using sharp dissection. The vein was dissected out both proximally and distally and suture ligated and divided distally. I then ran a 3 Ramon proximally in the vein, to ensure patency of the vein. I then flushed the vein with heparinized saline and controlled flow with a bulldog clamp. I then dissected out the brachial artery through this incision circumferentially both proximal and distal and controlled th artery with vessel loops. I placed the vessel loops on tension, controlling the flow through the artery, and created an arteriotomy using an 11 blade and Ansari scissors. I created an end to side anastomosis between the basilic vein and brachial artery using a 6-0 Prolene in running fashion. Prior to completing the anastomosis I flushed the artery both proximally and distally and then advanced a 3 Ramon proximally to break the spasm in the artery. I completed the anastomosis and removed all vessel loops allowing flow into the fistula which had an excellent thrill. I achieved hemostasis with a combination of direct pressure and electrocautery. Once hemostasis was achieved I anesthetized the wound with Marcaine. I closed the wound in 2 layers using 3-0 Vicryl in a running fashion to close the deep dermal layer and 4-0 Monocryl in a running fashion in the subcuticular layer. I dressed the wound with Surgicel. The patient tolerated the procedure well, all sponge needle and instrument counts were correct. The patient was taken to recovery in stable condition.
--- NOTE | 2016-06-26 17:29 | Post Anesthesia Evaluation ---
- Post Anesthesia Evaluation Patient Participated: Yes Airway Patent: Yes Stable Respiratory Function: Yes Nausea/Vomiting: No Temp > 96.8F: Yes Pain Manageable: Yes Adequeate Hydration: Yes Anesthesia Complications: No Block Receding Appropriately: Not Applicable Patient on Ventilator: No
[2016-06-26 18:05] VITALS: BP 146/72
== END 2016-06-26 12:20 | disposition home or self-care (01) ==
LOC: OR 06:08
PROVIDERS: ATTEND Surgery Vascular Surgery
DX: E11.22 Type 2 diabetes mellitus with diabetic chronic kidney disease (principal); I12.0 Hypertensive chronic kidney disease with stage 5 chronic kidney disease or end stage renal disease; N18.6 End stage renal disease; F17.210 Nicotine dependence, cigarettes, uncomplicated; K21.9 Gastro-esophageal reflux disease without esophagitis; D64.9 Anemia, unspecified; Z72.89 Other problems related to lifestyle; Z99.2 Dependence on renal dialysis; Z86.73 Personal history of transient ischemic attack (TIA), and cerebral infarction without residual deficits
CPT/HCPCS: 36415; 36819; 82962; 84132; C1757; J0690; J1170; J1644; J2370; J2405; J2704; J7030; J7050

== ENCOUNTER 2016-08-28 05:50 | Day surgery (SDC) | payer MEDICARE ==
[2016-08-28] MEDS ORDERED: ANCEF/STERILE WATER 2 GM/20 ML 2 GM/20 ML SYRINGE IV NR (06:00)
[2016-08-28] MEDS ORDERED: NACL 0.9% 1000 ML 1,000 ML IV SCH (06:00)
[2016-08-28] MEDS ORDERED: DIPRIVAN 10 MG/ML IV ONE (07:19)
[2016-08-28] MEDS ORDERED: SUBLIMAZE ONE (07:19)
[2016-08-28] MEDS ORDERED: ZOFRAN ONE (07:20)
[2016-08-28] MEDS ORDERED: NACL 0.9% 100 ML ONE (07:20)
[2016-08-28] MEDS ORDERED: DECADRON ONE (07:20)
[2016-08-28] MEDS ORDERED: NEO SYNEPHRINE ONE (07:20)
[2016-08-28] MEDS ORDERED: XYLOCAINE MPF 2% ONE (07:20)
--- NOTE | 2016-08-28 07:21 | Anesthesia Consultation ---
Anesthesia Consult and Med Hx Date of service: 08/28/16 - Airway Anesthetic Teeth Evaluation: Poor ROM Head & Neck: Adequate Mental/Hyoid Distance: Adequate Mallampati Class: Class II Intubation Access Assessment: Probably Good - Pulmonary Exam CTA: Yes (blbs clear) - Cardiac Exam Cardiac Exam: RRR - Pre-Operative Health Status ASA Pre-Surgery Classification: ASA4 Proposed Anesthetic Plan: General - Pulmonary Hx Smoking: Yes (1/2PPD 10 YRS) - Cardiovascular System Hx Hypertension: Yes (10YRS) - Central Nervous System CVA: Yes (TIA in past) Hx Psychiatric Problems: No - Gastrointestinal Hx Gastroesophageal Reflux Disease: Yes (on meds) - Endocrine Hx Renal Disease: Yes (ESRD on HD //Sun) Hx End Stage Renal Disease: Yes Hx Insulin Dependent Diabetes: Yes (took insulin lst PM BG in 90's this am) Hx Non-Insulin Dependent Diabetes: No - Hematic Hx Anemia: Yes - Other Systems Hx Alcohol Use: Yes Hx Cancer: No - Additional Comments Anesthesia Medical History Comments: gout
[2016-08-28] MEDS ORDERED: ZOFRAN IV PRN (07:22)
[2016-08-28] MEDS ORDERED: SUBLIMAZE IV PRN (07:22)
[2016-08-28] MEDS ORDERED: NACL BACTERIOSTATIC INFILTRATI ONE (07:32)
--- NOTE | 2016-08-28 07:32 | Anesthesia Day of Surgery ---
Anesthesia Day of Surgery - Day of Surgery Patient Examined: Yes Patient H&P Reviewed: Yes Patient is NPO: Yes Beta Blockers: Yes
[2016-08-28] MEDS ORDERED: NACL 0.9% 500 ML 500 ML ONE (07:37)
[2016-08-28] MEDS ORDERED: HEPARIN 10,000 UNITS/10 ML ONE (07:37)
[2016-08-28] MEDS ORDERED: MARCAINE 0.5% 30 ML INFILTRATI ONE (07:37)
[2016-08-28] MEDS ORDERED: PEPCID PO NR (08:00)
[2016-08-28] MEDS ORDERED: MARCAINE 0.5% INFILTRATI ONE ×3 (08:34→11:05)
[2016-08-28] MEDS ORDERED: DILAUDID ONE (08:50)
[2016-08-28] MEDS ORDERED: NACL 0.9% 500 ML IV ONE (08:51)
[2016-08-28] MEDS ORDERED: NACL 0.9% IR ONE (08:51)
[2016-08-28] MEDS ORDERED: HEPARIN 10,000 UNITS/10 ML IV ONE (08:51)
[2016-08-28] MEDS ORDERED: ROBINUL ONE (10:45)
--- NOTE | 2016-08-28 11:51 | Short Stay Summary ---
Short Stay Documentation Date of service: 08/28/16 Narrative H&P: See H&P - History H&P: obtained from office - Allergies and Medications Current Medications: Allergies No Known Allergies Allergy (Verified 11/06/14 11:35) Home Medications Medication Instructions Recorded Confirmed Last Taken Type Aspirin [Aspirin BABY CHEW TAB] 81 mg PO DAILY 04/09/13 08/25/16 08/27/16 History amLODIPine [Norvasc] 10 mg PO DAILY 04/09/13 08/25/16 08/27/16 History Allopurinol [Zyloprim] 100 mg PO QDAY 11/06/14 08/25/16 08/27/16 History Atorvastatin Calcium [Lipitor] 10 mg PO QHS 11/06/14 08/25/16 08/27/16 History Pantoprazole Sodium 40 mg PO QDAY 11/06/14 08/25/16 08/27/16 History Famotidine [Pepcid] 20 mg PO BID 04/30/16 08/25/16 08/27/16 History Ferrous Sulfate [Feosol 325 MG tab] 325 mg PO QDAY 04/30/16 08/25/16 08/27/16 History Furosemide [Lasix TAB] 20 mg PO QDAY 04/30/16 08/25/16 08/27/16 History Insulin NPH/Regular [NovoLIN 70/30] 15 unit SUB-Q BID 04/30/16 08/25/16 History Sodium Bicarbonate 650 mg PO BID 04/30/16 08/25/16 08/27/16 History Carvedilol [Coreg] 25 mg PO BID #60 tablet 05/05/16 08/25/16 08/28/16 05:00 Rx hydrALAZINE [Apresoline TAB] 75 mg PO TID #90 tablet 05/05/16 08/25/16 08/28/16 05:00 Rx HYDROcodone/APAP 7.5-325 [[place] 1 each PO Q6HR PRN #50 tablet 06/26/16 08/25/16 Unknown Rx 7.5/325] Active Medications Famotidine (Pepcid) 20 mg PO PREOP NR Stop: 08/28/16 18:00 Fentanyl (Sublimaze) 50 mcg IV Q5MIN PRN PRN Reason: Pain , Severe (7-10) Stop: 08/28/16 18:00 Hydromorphone HCl (Dilaudid) 0.25 mg IV Q10MIN PRN PRN Reason: Pain, Moderate (4-6) Stop: 08/28/16 18:00 Cefazolin Sodium (Ancef/Sterile Water 2 Gm/20 Ml) 2 gm in 20 mls @ 80 mls/hr IV PREOP NR PRN Reason: Protocol Stop: 08/28/16 23:59 Sodium Chloride (Nacl 0.9% 1000 Ml) 1,000 mls @ 42 mls/hr IV DIRECT ZARINA Last Admin: 08/28/16 07:40 Dose: 42 mls/hr - Brief post op/procedure progress note Date of procedure: 08/28/16 Pre-op diagnosis: Complications a Dialysis Access Post-op diagnosis: same Procedure: Revision with Elevation of Left Brachial Basilic Arteriovenous Fistula Anesthesia: JIMMY Surgeon: KIRBY GARCIA Clinical Trials Specialist: ALICIA HUTCHINSON Estimated blood loss: other (250 mL) Pathology: none Condition: stable - Disposition Condition at discharge: Good Disposition: DISCHARGED TO HOME OR SELFCARE Short Stay Discharge Plan Activity: other (no heavy lifting with left arm) Wound: open to air, keep clean and dry, other (okay to wash the wound with soap and water but do not soak in water) Follow up with: KIRBY GARCIA MD [Staff Physician] - 14 Days Prescriptions: HYDROcodone/APAP 7.5-325 [[place] 7.5/325] 1 each PO Q6HR PRN #90 tablet PRN Reason: Pain
--- NOTE | 2016-08-28 11:54 | Post Anesthesia Evaluation ---
- Post Anesthesia Evaluation Patient Participated: Yes Airway Patent: Yes Stable Respiratory Function: Yes Temp > 96.8F: Yes Pain Manageable: Yes Adequeate Hydration: Yes Anesthesia Complications: No Block Receding Appropriately: Not Applicable
--- NOTE | 2016-08-28 12:04 | Operative Report ---
Operative Report Operative Report: Date of procedure: 08/28/2016 Pre-operative diagnosis: Complications of Dialysis Access Post-operative diagnosis: Same Procedure(s): Revision with Elevation of Left Brachiobasilic AV Fistula Surgeon: Gorge Dunbar MD Gis Coordinator: Thanh Clayton PA-C Anesthesia: General Endotracheal Anesthesia EBL: Minimal Counts: Correct Complications: None Condition: Stable Findings: Successful elevation of left brachiobasilic fistula with excellent thrill. Specimen: None Indication: The patient is a 71-year-old male with history of end-stage renal disease who had creation of a left arm brachial basilic arterial venous fistula. He is in need of revision with elevation to allow access of the fistula. He was given the risks, benefits, and alternative procedures and consented to the procedure. Description of Procedure: The patient was brought to the operating room and laid in supine position after general endotracheal anesthesia was achieved her left arm was prepped and draped in normal sterile fashion. A longitudinal incision was then created on the medial aspect of the arm centered over the fistula extending from the axillary crease to the antecubital crease. Sharp dissection was used to continue the dissection down to the fistula. The fistula was then dissected circumferentially and all side branches were suture ligated and divided. A Soco-Wick tunneler was then used to tunnel from the distal part of the incision towards the proximal portion of the incision and a lateral and slightly curved direction. The fistula was then marked on the anterior surface , the inflow was controlled with a DeBakey, clamp and the outflow was controlled with bulldog clamps. This vessel was then divided near the arterial inflow and secured to the Soco-Wick tunneler with 2-0 silk and then pulled retrograde through the tunnel. I flushed the venous outflow with heparinized saline to assure that there was no evidence of twist or kinks. I then performed an end-to-end anastomosis between the proximal and distal ends using two 6-0 Prolenes in running fashion. Prior to completing the anastomosis I flushed the arterial inflow of the fistula to ensure there was no clot or debris. I then completed the anastomosis and removed all clamps allowing flow through the fistula which had an excellent thrill. I achieved hemostasis in the wound with a combination of direct pressure and electrocautery. I then anesthetized the wound with Exparel and closed the wound in 2 layers using a 3- 0 Vicryl in running fashion in the deep dermal layer and a 4-0 Monocryl in running fashion in the subcuticular. I then dressed the wound with Surgicel. The patient tolerated the procedure well, all sponge needle and instrument counts were correct, the patient was taken to the recovery area in stable condition.
[2016-08-28] MEDS: DILAUDID IV PRN ×4 (12:05→12:28)
--- NOTE | 2016-08-28 14:50 | Admit Criteria Form ---
Admission Criteria Documentation: AMBULATORY SURGERY EXCEPTION CRITERIA Ambulatory Surgery Exception Criteria ( Place 'X' for any and all applicable criteria): Surgery or procedure performed on ambulatory basis may require inpatient stay for[A] ANY ONE of the following(1)(2)(3)(4)(5)(6)(7)(8)(9): [X] I. A preoperative situation, condition, or finding that warrants inpatient stay as indicated by ANY ONE of the following: [] a) Inpatient care needed because of severity of a disease or condition rather than the surgery (eg, severe cardiac or respiratory disease, severe infection) (15) (16 ) (17) (18) [] b) Emergent procedure (eg, angioplasty for acute ischemia)(19) [] c) Complex surgical approach or situation as indicated by ANY ONE of the following(3): [] i) Open approach needed instead of usual endoscopic, transcatheter, or other less invasive procedure [] ii) Difficult approach because of previous operation [] iii) Airway monitoring required after open neck procedures(20)(21) [] iv) Large mass requiring unusually extensive dissection [] v) Additional complicating feature requiring inpatient care (eg, drain management)(22(23): [X] d) Major surgery in a pt with high anesthetic risk as indicated by ANY ONE of the following (2)(3)(5)(7)(8): [X] i) ASA risk class III or higher (severe systemic disease impairing function) [D] [] ii) Advanced age (eg, older than 85 years)(14)(24) [] iii) Symptomatic heart failure(25) [] iv) Symptomatic asthma or COPD(8)(21) [] v) Morbid obesity with hemodynamic or respiratory problems(20)( 21)(26)(27) [] vi) Obstructive sleep apnea(20)(21) [] vii) Former premature infants who are younger than 60 weeks [] viii) High risk for severe postoperative abnormalities (eg, severe postoperative hypocalcemia after parathyroidectomy for severe hyperparathyroidism)(27)( 28) [] ix) Unstable angina(25) [] e) Drug-related risk requiring inpatient stay as indicated by ANY ONE of the following(5)(10)(14)(32)(33) [] i) Procedure requires discontinuing drugs or other therapy (eg , antiarrhythmic medication, antiseizure medication), which necessitates inpatient observation or treatment.(18)(31) [] ii) Major surgery and high risk drug use as indicated by ANY ONE of the following: [] 1) Active abuse of cocaine or similar drug [] 2) Monoamine oxidase inhibitor use [] 3) Other drug identified as posing risk [] f) Inadequate outpatient care situation as indicated by ANY ONE of the following(5)(10)(14)(32)(33) [] i) Patient lives remote from medical facility and procedure has urgent complication potential, and temporary nearby residence cannot be arranged [] ii) Patient will have postprocedure incapacitation and inadequate assistance at home, or alternative level of care cannot be arranged. [] iii) Patient will have long general anesthesia or procedure side effect resolution time, and competent person to stay with patient on first postoperative night at home or alternative level of care cannot be arranged. []iv) Other inadequate outpatient situation that cannot be handled by other means [] II. A perioperative event, condition, or finding that warrants inpatient stay as indicated by ANY ONE of the following (1)(2)(3): [] a) Inadequate physiologic recovery: cardiovascular, respiratory, or hemodynamic status not normal or near preoperative baseline(18) [] b) Hemodynamic instability [] c) Patient not alert with near normal or baseline mental status [] d) Temperature not normal or as expected and not appropriate for outpatient treatment of condition [] e) Ambulatory or appropriate activity level status not yet achieved post procedure [E](34)(35)(36) [] f) Operative site not appropriate (eg, unexpected or excessive drainage or bleeding) [] g) Postoperative effects not resolved or adequately managed (eg, significant pain or vomiting not appropriate for outpatient or next level of care)(10)(12) [] h) Complicating features requiring inpatient care as indicated by ANY ONE of the following(37): [] i) Severe complications of procedure (eg, bowel injury, airway compromise, vascular injury,severe hemorrhage) [] ii) Extensive (eg, dissection far beyond usual scope of procedure ) or prolonged (eg, 120 minutes beyond usual) surgery needed requiring inpatient postoperative care [] iii) Conversion to an open or complex procedure that requires inpatient care (eg, open vs laparoscopic cholecystectomy, abdominal vs vaginal hysterectomy)(38) [] iv) Comorbid condition or test result identified during or post procedure that requires inpatient care (7) [] v) Malignant hyperthermia(30) [] vi) Other complicating feature requiring inpatient care(22)(23) Inpatient stay may be needed until ALL of the following are present (1)(2)(3)(4) (5)(6)(10)(14)(33)(40): []a) Physiologic recovery: cardiovascular, respiratory, and hemodynamic status normal or near preoperative baseline []b) Hemodynamic stability []c) Patient alert, with near normal or baseline mental status []d) Temperature appropriate: patient afebrile or temperature appropriate for outpt treatment of condition []e) Activity level appropriate: ambulatory or appropriate activity level post procedure []f) Operative site appropriate as indicated by ALL of the following: []i) Site dry or with expected drainage []ii) Any blood noted is as expected for procedure. []g) Postoperative effects resolved or managed as indicated by ALL of the following: []i) Pain management appropriate for outpatient (or next level of) care(10) []ii) Minimal nausea and vomiting: if present, successfully treated with oral medication(12) []iii) Headache, dizziness, or drowsiness (if present) are mild. []h) Voiding status acceptable as indicated by ANY ONE of the following: []i) Voiding spontaneously []ii) No voiding but instructions given for follow-up in 6 to 8 hours []iii) Urinary catheter in place, and instructions given for follow-up []i) Complicating features requiring inpatient care manageable at a lower level of care(37) []j) Comorbid conditions manageable at a lower level of care(37) The original [employer] content created by [employer] has been revised. The portions of the content which have been revised are identified through the use of italic text or in bold, and [employer] [facility] [employer] has neither reviewed nor approved the modified material. All other unmodified content is copyright [employer]. Please see references footnoted in the original [employer] edition 2016 Admission Criteria Met: Yes
[2016-08-28 19:02] VITALS: BP 145/78
== END 2016-08-28 14:26 | disposition home or self-care (01) ==
LOC: OR 05:50
PROVIDERS: ATTEND Surgery Vascular Surgery
DX: T82.590A Other mechanical complication of surgically created arteriovenous fistula, initial encounter (principal); E11.22 Type 2 diabetes mellitus with diabetic chronic kidney disease; I12.0 Hypertensive chronic kidney disease with stage 5 chronic kidney disease or end stage renal disease; N18.6 End stage renal disease; F17.210 Nicotine dependence, cigarettes, uncomplicated; K21.9 Gastro-esophageal reflux disease without esophagitis; D64.9 Anemia, unspecified; Z99.2 Dependence on renal dialysis; Z98.890 Other specified postprocedural states; Z79.899 Other long term (current) drug therapy; Z79.4 Long term (current) use of insulin; Z86.73 Personal history of transient ischemic attack (TIA), and cerebral infarction without residual deficits; Z72.89 Other problems related to lifestyle; Y83.2 Surgical operation with anastomosis, bypass or graft as the cause of abnormal reaction of the patient, or of later complication, without mention of misadventure at the time of the procedure
CPT/HCPCS: 36415; 36832; 82962; 84132; C1757; J0690; J1100; J1170; J1644; J2370; J2405; J2704; J3010; J7030; J7040

== ENCOUNTER 2016-09-23 11:19 | Emergency (ER) | payer MEDICARE ==
[2016-09-23 12:02] LABS: Basophils % (Auto) 0.3 % (0.0-1.8); Eosinophils % (Auto) 3.4 % (0.0-4.3); Hematocrit 36.5 % (35.5-45.6); Hemoglobin 12.1 gm/dl (11.8-15.2); Mean Corpuscular HGB Conc 33 % (32-34); Mean Corpuscular Hemoglobin 28 pg (28-32); Mean Corpuscular Volume 85 fl (84-94); Platelet Count 246 K/mm3 (140-440); Red Blood Count 4.32 M/mm3 (3.65-5.03); White Blood Count 11.5 K/mm3 (4.5-11.0)
[2016-09-23 12:10] LABS: Red Cell Distribution Width 20.6 % (13.2-15.2)
[2016-09-23 12:19] LABS: BUN/Creatinine Ratio 5.57; Calcium 9.2 mg/dL (8.4-10.2); Potassium 4.7 mmol/L (3.6-5.0)
--- NOTE | 2016-09-23 21:33 | Emergency Department Report ---
ED General Adult HPI - General Chief complaint: Arrhythmia/Palpitations Stated complaint: ELEVATED HR Time Seen by Provider: 09/23/16 21:01 Source: patient, EMS, old records reviewed Mode of arrival: Ambulatory Limitations: No Limitations - History of Present Illness Initial comments: pt went to hd today they noted his hr was 130 and sent him here he had no cp or sob no fever or other co bs here 57 on admit trop x 2 normal 12 lead sr- 80's -: Sudden Associated Symptoms: denies other symptoms. denies: confusion, chest pain, cough, diaphoresis, fever/chills, headaches, loss of appetite, malaise, nausea/ vomiting, rash, seizure, shortness of breath, syncope, weakness Treatments Prior to Arrival: none - Related Data Home Medications Medication Instructions Recorded Confirmed Last Taken Aspirin [Aspirin BABY CHEW TAB] 81 mg PO DAILY 04/09/13 08/25/16 08/27/16 amLODIPine [Norvasc] 10 mg PO DAILY 04/09/13 08/25/16 08/27/16 Allopurinol [Zyloprim] 100 mg PO QDAY 11/06/14 08/25/16 08/27/16 Atorvastatin Calcium [Lipitor] 10 mg PO QHS 11/06/14 08/25/16 08/27/16 Pantoprazole Sodium 40 mg PO QDAY 11/06/14 08/25/16 08/27/16 Famotidine [Pepcid] 20 mg PO BID 04/30/16 08/25/16 08/27/16 Ferrous Sulfate [Feosol 325 MG tab] 325 mg PO QDAY 04/30/16 08/25/16 08/27/16 Furosemide [Lasix TAB] 20 mg PO QDAY 04/30/16 08/25/16 08/27/16 Insulin NPH/Regular [NovoLIN 70/30] 15 unit SUB-Q BID 04/30/16 08/25/16 08/27/16 Sodium Bicarbonate 650 mg PO BID 04/30/16 08/25/16 08/27/16 Previous Rx's Medication Instructions Recorded Last Taken Type Carvedilol [Coreg] 25 mg PO BID #60 tablet 05/05/16 08/28/16 05:00 Rx hydrALAZINE [Apresoline TAB] 75 mg PO TID #90 tablet 05/05/16 08/28/16 05:00 Rx HYDROcodone/APAP 7.5-325 [[place] 1 each PO Q6HR PRN #50 tablet 06/26/16 Unknown Rx 7.5-325 mg TAB] HYDROcodone/APAP 7.5-325 [[place] 1 each PO Q6HR PRN #90 tablet 08/28/16 Unknown Rx 7.5/325] Allergies Allergy/AdvReac Type Severity Reaction Status Date / Time No Known Allergies Allergy Verified 09/23/16 11:38 ED Review of Systems ROS: Stated complaint: ELEVATED HR Other details as noted in HPI Comment: All other systems reviewed and negative Constitutional: no symptoms reported, see HPI. denies: chills, diaphoresis, fever, malaise, weakness Eyes: as per HPI. denies: eye pain ENT: as per HPI. denies: ear pain, throat pain Respiratory: no symptoms reported, see HPI. denies: cough, orthopnea, shortness of breath, SOB with exertion, SOB at rest, stridor Cardiovascular: as per HPI. denies: chest pain, palpitations (felt fast hr at hd but lasted seconds and has been fine. he needs clearance for hd tues) Endocrine: no symptoms reported, see HPI. denies: excessive sweating, flushing , intolerance to cold, intolerance to heat Gastrointestinal: as per HPI. denies: abdominal pain, nausea, vomiting Genitourinary: as per HPI, other (lue av fistula). denies: urgency, dysuria Musculoskeletal: as per HPI. denies: back pain Skin: as per HPI Neurological: as per HPI Psychiatric: as per HPI Hematological/Lymphatic: as per HPI ED Past Medical Hx - Past Medical History Hx Hypertension: Yes (10YRS) Hx CVA: No Hx Heart Attack/AMI: No (echo 04/25 n) Hx Congestive Heart Failure: Yes Hx Diabetes: Yes (10YRS) Hx Deep Vein Thrombosis: No Hx Pulmonary Embolism: No Hx GERD: Yes Hx Liver Disease: No Hx Renal Disease: Yes (ESRD on HD tues/th/Sat) Hx of Cancer: No Hx Sickle Cell Disease: No Hx Arthritis: No Hx Headaches / Migraines: No Hx Seizures: No Hx Kidney Stones: No Hx Psychiatric Treatment: No Hx Asthma: No Hx COPD: No Hx Tuberculosis: No Hx Dementia: No Hx HIV: No Additional medical history: anemia-ac; - Surgical History Past Surgical History?: Yes Hx Coronary Stent: No Hx Open Heart Surgery: No Hx Pacemaker: No Hx Internal Defibrillator: No Hx Cholecystectomy: No Hx Appendectomy: No Hx Breast Surgery: No Additional Surgical History: VAS CATH r sclavian. fistula lue - Social History Smoking Status: Current Some Day Smoker Substance Use Type: None - Medications Home Medications: Home Medications Medication Instructions Recorded Confirmed Last Taken Type Aspirin [Aspirin BABY CHEW TAB] 81 mg PO DAILY 04/09/13 08/25/16 08/27/16 History amLODIPine [Norvasc] 10 mg PO DAILY 04/09/13 08/25/16 08/27/16 History Allopurinol [Zyloprim] 100 mg PO QDAY 11/06/14 08/25/16 08/27/16 History Atorvastatin Calcium [Lipitor] 10 mg PO QHS 11/06/14 08/25/16 08/27/16 History Pantoprazole Sodium 40 mg PO QDAY 11/06/14 08/25/16 08/27/16 History Famotidine [Pepcid] 20 mg PO BID 04/30/16 08/25/16 08/27/16 History Ferrous Sulfate [Feosol 325 MG tab] 325 mg PO QDAY 04/30/16 08/25/16 08/27/16 History Furosemide [Lasix TAB] 20 mg PO QDAY 04/30/16 08/25/16 08/27/16 History Insulin NPH/Regular [NovoLIN 70/30] 15 unit SUB-Q BID 04/30/16 08/25/16 History Sodium Bicarbonate 650 mg PO BID 04/30/16 08/25/16 08/27/16 History Carvedilol [Coreg] 25 mg PO BID #60 tablet 05/05/16 08/25/16 08/28/16 05:00 Rx hydrALAZINE [Apresoline TAB] 75 mg PO TID #90 tablet 05/05/16 08/25/16 08/28/16 05:00 Rx HYDROcodone/APAP 7.5-325 [[place] 1 each PO Q6HR PRN #50 tablet 06/26/16 08/25/16 Unknown Rx 7.5-325 mg TAB] HYDROcodone/APAP 7.5-325 [[place] 1 each PO Q6HR PRN #90 tablet 08/28/16 Unknown Rx 7.5/325] ED Physical Exam - General Limitations: No Limitations General appearance: alert, in no apparent distress - Head Head exam: Present: atraumatic - Eye Eye exam: Present: normal appearance - ENT ENT exam: Present: normal exam, mucous membranes moist - Neck Neck exam: Present: normal inspection. Absent: tenderness, meningismus - Respiratory Respiratory exam: Present: normal lung sounds bilaterally. Absent: respiratory distress, wheezes, rales, rhonchi, stridor, chest wall tenderness, accessory muscle use, decreased breath sounds, prolonged expiratory - Cardiovascular Cardiovascular Exam: Present: regular rate, normal rhythm, normal heart sounds. Absent: bradycardia, tachycardia, irregular rhythm, systolic murmur, diastolic murmur, rubs, gallop, clicks, JVD, S3, S4 - GI/Abdominal GI/Abdominal exam: Present: soft. Absent: distended, tenderness - Rectal Rectal exam: Present: deferred - exam: Present: normal inspection - Extremities Exam Extremities exam: Present: full ROM, normal capillary refill, other (l upper extremity av fistula not yet in use but healing wo s/s of infection). Absent: tenderness, pedal edema, joint swelling, calf tenderness - Back Exam Back exam: Present: normal inspection, full ROM. Absent: tenderness, CVA tenderness (R), CVA tenderness (L), muscle spasm, paraspinal tenderness, vertebral tenderness - Neurological Exam Neurological exam: Present: alert, altered, oriented X3, CN II-XII intact, normal gait, reflexes normal. Absent: abnormal gait, motor sensory deficit - Psychiatric Psychiatric exam: Present: normal affect, normal mood. Absent: depressed, agitated - Skin Skin exam: Present: warm, dry, intact, normal color, other (r sc vascath site no redness or swelling or pain or dc). Absent: rash, cyanosis, diaphoretic, erythema, urticaria, vesicles ED Course Vital Signs 09/23/16 11:38 Temperature 97.6 F Pulse Rate 63 Respiratory 18 Rate Blood Pressure 156/82 O2 Sat by Pulse 98 Oximetry - Reevaluation(s) Reevaluation #1: 09/23/16 21:32 vss nad hr 80 on exam no cp no sob no palpitations labs noted undergoing hd for 4 m has vascath and new lue fistula/ graft-av not yet being used was not placed on hd this am was sent here has been fine since ambulatory taking po Reevaluation #2: 09/23/16 21:54 bs 167 ED Medical Decision Making - Lab Data Result diagrams: 09/23/16 11:48 09/23/16 11:48 - EKG Data -: EKG Interpreted by Me EKG shows normal: sinus rhythm - EKG Data When compared to previous EKG there are: no significant change, other (no tachy on 12 lead x 2. ) Interpretation: no acute changes - Medical Decision Making vss nad no cp no sob no fever no s/s infection no tachy on exam - now in er several hours and no symptoms admit labs bs 55 pt ate sandwich bs now normal pt denies any symptoms. ckd pt w hd on t/r/s did not get placed on hd today no edema or s/s chf lytes noted 12 lead x 2 nsr trop neg x 2 bs [address] discussed with Dr[address] Mendenhall dc home w instructions and follow up. pt verbalizes understanding. Critical care attestation.: If time is entered above; I have spent that time in minutes in the direct care of this critically ill patient, excluding procedure time. ED Disposition Clinical Impression: Hypoglycemia, Diabetes mellitus, Chronic kidney disease, stage IV (severe), Type II diabetes mellitus, Hyperlipidemia Disposition: DC-01 TO HOME OR SELFCARE Is pt being admited?: No Does the pt Need Aspirin: No Condition: Stable Instructions: Diabetes Mellitus Type 2 in Adults (ED) Additional Instructions: diabetic diet monitor blood sugar- was low this am activity per routine hd per routine meds as instructed MONITOR VASCATH AND FISTULA AREAS FOR ANY INFECTION. IF YOU DEVELOP FEVER CALL YOUR [facility] SECRETARY Referrals: PRIMARY CARE, [Primary Care Provider] - 3-5 Days Time of Disposition: 21:35
[2016-09-23 22:02] VITALS: BP 160/71
== END 2016-09-23 22:00 | disposition home or self-care (01) ==
LOC: ED 11:19
DX: E11.22 Type 2 diabetes mellitus with diabetic chronic kidney disease (principal); I12.9 Hypertensive chronic kidney disease with stage 1 through stage 4 chronic kidney disease, or unspecified chronic kidney disease; N18.4 Chronic kidney disease, stage 4 (severe); E11.649 Type 2 diabetes mellitus with hypoglycemia without coma; E78.00 Pure hypercholesterolemia, unspecified; I50.9 Heart failure, unspecified; K21.9 Gastro-esophageal reflux disease without esophagitis; D64.9 Anemia, unspecified; F17.200 Nicotine dependence, unspecified, uncomplicated; Z79.82 Long term (current) use of aspirin; Z79.4 Long term (current) use of insulin
CPT/HCPCS: 36415; 80048; 82962; 84484; 85025; 93005; 93010

== ENCOUNTER 2017-02-16 14:18 | Inpatient (IN) | payer MEDICARE ==
[2017-02-16 14:57] LABS: Basophils % (Auto) 1.1 % (0.0-1.8); Eosinophils % (Auto) 2.9 % (0.0-4.3); Hematocrit 33.2 % (35.5-45.6); Hemoglobin 11.3 gm/dl (11.8-15.2); Mean Corpuscular HGB Conc 34 % (32-34); Mean Corpuscular Hemoglobin 31 pg (28-32); Mean Corpuscular Volume 90 fl (84-94); Platelet Count 195 K/mm3 (140-440); Red Blood Count 3.71 M/mm3 (3.65-5.03); Red Cell Distribution Width 16.6 % (13.2-15.2); White Blood Count 12.5 K/mm3 (4.5-11.0)
[2017-02-16 15:24] LABS: Albumin 3.9 g/dL (3.9-5); Albumin/Globulin Ratio 1.1 %; Bilirubin,Total 0.3 mg/dL (0.1-1.2); Calcium 8.3 mg/dL (8.4-10.2); Chloride 98.4 mmol/L (98-107); Total Protein 7.3 g/dL (6.3-8.2)
[2017-02-16 15:33] LABS: Potassium 7.5 mmol/L (3.6-5.0)
[2017-02-16] MEDS ORDERED: KIONEX PO ONE (16:02)
[2017-02-16] MEDS ORDERED: D50W (25GM) Vial IV ONE (16:02)
[2017-02-16] MEDS ORDERED: SODIUM BICARBONATE IV ONE ×2 (16:02→17:00)
[2017-02-16] MEDS ORDERED: PROVENTIL IH ONE (16:03)
[2017-02-16] MEDS ORDERED: CALCIUM GLUCONATE 1,000 MG in NACL 0.9% 100 ML IV ONE ×2 (16:30→20:34)
--- NOTE | 2017-02-16 16:35 | Emergency Department Report ---
ED General Adult HPI - General Chief complaint: Recheck/Abnormal Lab/Rx Stated complaint: POTASSIUM HIGH Time Seen by Provider: 02/16/17 16:00 Source: patient Mode of arrival: Ambulatory Limitations: No Limitations - History of Present Illness Initial comments: 71-year-old male with a past medical history of CHF, diabetes, GERD, hypertension, end-stage renal disease on dialysis Sunday, , and Sunday presents to the hospital with complaints of elevated potassium. Patient had his 4 hours scheduled dialysis yesterday without any complications. Patient only states that the machine was beeping a lot and seemed to be not flowing consistently. Patient went to his outpatient scheduled appointment with the [facility]. Patient had blood work drawn today and was told his potassium was greater than 6 and he needed to take Kayexalate. Patient went to the pharmacy to try to feel Kayexalate and they did not have any at [facility] and therefore it was advised that he go to the ER. Patient denies any symptoms. He has a little bit of urine output daily. - Related Data Home Medications Medication Instructions Recorded Confirmed Last Taken Aspirin [Aspirin BABY CHEW TAB] 81 mg PO DAILY 04/09/13 08/25/16 08/27/16 amLODIPine [Norvasc] 10 mg PO DAILY 04/09/13 08/25/16 08/27/16 Allopurinol [Zyloprim] 100 mg PO QDAY 11/06/14 08/25/16 08/27/16 Atorvastatin Calcium [Lipitor] 10 mg PO QHS 11/06/14 08/25/16 08/27/16 Pantoprazole Sodium 40 mg PO QDAY 11/06/14 08/25/16 08/27/16 Famotidine [Pepcid] 20 mg PO BID 04/30/16 08/25/16 08/27/16 Ferrous Sulfate [Feosol 325 MG tab] 325 mg PO QDAY 04/30/16 08/25/16 08/27/16 Furosemide [Lasix TAB] 20 mg PO QDAY 04/30/16 08/25/16 08/27/16 Insulin NPH/Regular [NovoLIN 70/30] 15 unit SUB-Q BID 04/30/16 08/25/16 08/27/16 Sodium Bicarbonate 650 mg PO BID 04/30/16 08/25/16 08/27/16 Previous Rx's Medication Instructions Recorded Last Taken Type Carvedilol [Coreg] 25 mg PO BID #60 tablet 05/05/16 08/28/16 05:00 Rx hydrALAZINE [Apresoline TAB] 75 mg PO TID #90 tablet 05/05/16 08/28/16 05:00 Rx HYDROcodone/APAP 7.5-325 [[place] 1 each PO Q6HR PRN #50 tablet 06/26/16 Unknown Rx 7.5-325 mg TAB] HYDROcodone/APAP 7.5-325 [[place] 1 each PO Q6HR PRN #90 tablet 08/28/16 Unknown Rx 7.5/325] Allergies Allergy/AdvReac Type Severity Reaction Status Date / Time No Known Allergies Allergy Verified 09/23/16 11:38 ED Review of Systems ROS: Stated complaint: POTASSIUM HIGH Other details as noted in HPI Comment: All other systems reviewed and negative Other: Constitutional: No fevers chills Eyes: No eye pain visual changes ENT: No ear pain or throat pain Neck: Denies pain Respiratory: Denies cough wheezing shortness of breath Cardiovascular: Denies chest pain, palpitations, syncope GI: Denies abdominal pain, nausea, vomiting, diarrhea : + uop Musculoskeletal: Denies back pain Skin: Denies rash, lesions, erythema Neurologic: Denies headache, numbness, weakness Psychiatric: Denies suicidal ideation, hallucinations Hem ED Past Medical Hx - Past Medical History Hx Hypertension: Yes (10YRS) Hx CVA: No Hx Heart Attack/AMI: No (echo 04/25 n) Hx Congestive Heart Failure: Yes Hx Diabetes: Yes (10YRS) Hx Deep Vein Thrombosis: No Hx Pulmonary Embolism: No Hx GERD: Yes Hx Liver Disease: No Hx Renal Disease: Yes (ESRD on HD /th/Sat) Hx Sickle Cell Disease: No Hx Arthritis: No Hx Headaches / Migraines: No Hx Seizures: No Hx Kidney Stones: No Hx Psychiatric Treatment: No Hx Asthma: No Hx COPD: No Hx Tuberculosis: No Hx Dementia: No Hx HIV: No Additional medical history: anemia-ac; - Surgical History Hx Coronary Stent: No Hx Open Heart Surgery: No Hx Pacemaker: No Hx Internal Defibrillator: No Hx Cholecystectomy: No Hx Appendectomy: No Hx Breast Surgery: No Additional Surgical History: VAS CATH r sclavian. fistula lue - Social History Smoking Status: Never Smoker Substance Use Type: None - Medications Home Medications: Home Medications Medication Instructions Recorded Confirmed Last Taken Type Aspirin [Aspirin BABY CHEW TAB] 81 mg PO DAILY 04/09/13 08/25/16 08/27/16 History amLODIPine [Norvasc] 10 mg PO DAILY 04/09/13 08/25/16 08/27/16 History Allopurinol [Zyloprim] 100 mg PO QDAY 11/06/14 08/25/16 08/27/16 History Atorvastatin Calcium [Lipitor] 10 mg PO QHS 11/06/14 08/25/16 08/27/16 History Pantoprazole Sodium 40 mg PO QDAY 11/06/14 08/25/16 08/27/16 History Famotidine [Pepcid] 20 mg PO BID 04/30/16 08/25/16 08/27/16 History Ferrous Sulfate [Feosol 325 MG tab] 325 mg PO QDAY 04/30/16 08/25/16 08/27/16 History Furosemide [Lasix TAB] 20 mg PO QDAY 04/30/16 08/25/16 08/27/16 History Insulin NPH/Regular [NovoLIN 70/30] 15 unit SUB-Q BID 04/30/16 08/25/16 History Sodium Bicarbonate 650 mg PO BID 04/30/16 08/25/16 08/27/16 History Carvedilol [Coreg] 25 mg PO BID #60 tablet 05/05/16 08/25/16 08/28/16 05:00 Rx hydrALAZINE [Apresoline TAB] 75 mg PO TID #90 tablet 05/05/16 08/25/16 08/28/16 05:00 Rx HYDROcodone/APAP 7.5-325 [[place] 1 each PO Q6HR PRN #50 tablet 06/26/16 08/25/16 Unknown Rx 7.5-325 mg TAB] HYDROcodone/APAP 7.5-325 [[place] 1 each PO Q6HR PRN #90 tablet 08/28/16 Unknown Rx 7.5/325] ED Physical Exam - General Limitations: No Limitations - Other Other exam information: General: No limitations, patient is alert in no acute distress Head exam: Atraumatic, normocephalic Eyes exam: Normal appearance ENT: Moist mucous membrane, normal oropharynx Neck exam: Normal inspection, full range of motion, no meningismus nontender Respiratory exam: Clear to auscultation bilateral, no wheezes, rales, crackles Cardiovascular: Normal rate and rhythm, normal heart sounds. Left upper arm dialysis access positive thrill Abdomen: Soft, nondistended, and nontender, with normal bowel sounds, no rebound, or guarding Extremity: Full range of motion normal inspection no deformity Back: Normal Inspection, full range of motion, no tenderness Neurologic: Alert, oriented x3, cranial nerves intact, no motor or sensory deficit Psychiatric: normal affect, normal mood Skin: Warm, dry, intact ED Course Vital Signs 02/16/17 02/16/17 02/16/17 14:37 16:00 16:16 Temperature 98.1 F Pulse Rate 84 76 73 Pulse Rate [ Anterior Bilateral Throughout] Respiratory 16 11 L 11 L Rate Respiratory Rate [Anterior Bilateral Throughout] Blood Pressure 122/61 131/64 131/64 O2 Sat by Pulse 97 Oximetry 02/16/17 16:19 Temperature Pulse Rate Pulse Rate [ 72 Anterior Bilateral Throughout] Respiratory 11 L Rate Respiratory 18 Rate [Anterior Bilateral Throughout] Blood Pressure O2 Sat by Pulse 97 Oximetry - Reevaluation(s) Reevaluation #1: 02/16/17 16:48 Patient received being cocktail for hyperkalemia albuterol, calcium gluconate, Kayexalate, insulin, glucose, and sodium bicarbonate - Consultations Consultation #1: 02/16/17 16:[address] Amaro plant reliability engineer will arrange for dialysis ED Medical Decision Making - Lab Data Result diagrams: 02/16/17 14:44 02/16/17 14:44 Lab Results 02/16/17 02/16/17 Range/Units 14:44 14:44 WBC 12.5 H (4.5-11.0) K/mm3 RBC 3.71 (3.65-5.03) M/mm3 Hgb 11.3 L (11.8-15.2) gm/dl Hct 33.2 L (35.5-45.6) % MCV 90 (84-94) fl MCH 31 (28-32) pg MCHC 34 (32-34) % RDW 16.6 H (13.2-15.2) % Plt Count 195 (140-440) K/mm3 Lymph % (Auto) 14.4 (13.4-35.0) % [place] % (Auto) 9.1 H (0.0-7.3) % Eos % (Auto) 2.9 (0.0-4.3) % Baso % (Auto) 1.1 (0.0-1.8) % Lymph # 1.8 (1.2-5.4) K/mm3 [place] # 1.1 H (0.0-0.8) K/mm3 Eos # 0.4 (0.0-0.4) K/mm3 Baso # 0.1 (0.0-0.1) K/mm3 Seg Neutrophils % 72.5 H (40.0-70.0) % Seg Neutrophils # 9.1 H (1.8-7.7) K/mm3 Sodium 139 (137-145) mmol/L Potassium 7.5 H* (3.6-5.0) mmol/L Chloride 98.4 (98-107) mmol/L Carbon Dioxide 20 L (22-30) mmol/L Anion Gap 28 mmol/L BUN 99 H (9-20) mg/dL Creatinine 14.1 H (0.8-1.5) mg/dL Estimated GFR 4 ml/min BUN/Creatinine Ratio 7 % Glucose 184 H (75-100) mg/dL Calcium 8.3 L (8.4-10.2) mg/dL Total Bilirubin 0.30 (0.1-1.2) mg/dL AST 6 (5-40) units/L ALT 8 (7-56) units/L Alkaline Phosphatase 79 (35-129) units/L Total Protein 7.3 (6.3-8.2) g/dL Albumin 3.9 (3.9-5) g/dL Albumin/Globulin Ratio 1.1 % - EKG Data -: EKG Interpreted by Nd EKG shows normal: sinus rhythm, axis (qrs -29), QRS complexes (93), ST-T waves ( no stemi, peak t waves) Rate: normal - Medical Decision Making Patient has had 2 separate lab Brandi that reveal significant hyperkalemia. Despite compliance with dialysis BUN and potassium is significantly elevated. Patient medicated in the ED. Dialysis will be arranged by plant reliability engineer. Dr Amaro contacted - Differential Diagnosis volume overload, hyperkalemia, lab abnormalities Critical Care Time: No Critical care attestation.: If time is entered above; I have spent that time in minutes in the direct care of this critically ill patient, excluding procedure time. ED Disposition Clinical Impression: Hyperkalemia, ESRD needing dialysis Disposition: OP ADMIT IP TO THIS HOSP Is pt being admited?: Yes Condition: Stable Time of Disposition: 16:34 (dr rivas/hosp)
[2017-02-16] MEDS ORDERED: NACL 0.9% 100 ML IV PRN (16:46)
--- NOTE | 2017-02-16 16:52 | Consultation ---
History of Present Illness - Reason for Consult Consult date: 02/16/17 end stage renal disease, hyperkalemia - History of Present Illness Mr. Cameron is a 71yo with ESRD on HD TTS who presented to the ED upon the direction of Prateek KYLE due to abnormal labs. In the ED, labs notable for K 7.5 and BUN 99. Patient reports that he last dialyzed yesterday. Per review of outpatient records, patient dialyzed full treatment yesterday. Contacted outpatient dialysis clinic and per monorail charger operator, patient's treatment was uneventful Past History Past Medical History: dialysis, ESRD, hypertension, hyperlipidemia, other (Gout) Past Surgical History: Other (AV access creation) Social history: no significant social history Family history: no significant family history Medications and Allergies Allergies Allergy/AdvReac Type Severity Reaction Status Date / Time No Known Allergies Allergy Verified 09/23/16 11:38 Home Medications Medication Instructions Recorded Confirmed Last Taken Type Aspirin [Aspirin BABY CHEW TAB] 81 mg PO DAILY 04/09/13 08/25/16 08/27/16 History amLODIPine [Norvasc] 10 mg PO DAILY 04/09/13 08/25/16 08/27/16 History Allopurinol [Zyloprim] 100 mg PO QDAY 11/06/14 08/25/16 08/27/16 History Atorvastatin Calcium [Lipitor] 10 mg PO QHS 11/06/14 08/25/16 08/27/16 History Pantoprazole Sodium 40 mg PO QDAY 11/06/14 08/25/16 08/27/16 History Famotidine [Pepcid] 20 mg PO BID 04/30/16 08/25/16 08/27/16 History Ferrous Sulfate [Feosol 325 MG tab] 325 mg PO QDAY 04/30/16 08/25/16 08/27/16 History Furosemide [Lasix TAB] 20 mg PO QDAY 04/30/16 08/25/16 08/27/16 History Insulin NPH/Regular [NovoLIN 70/30] 15 unit SUB-Q BID 04/30/16 08/25/16 History Sodium Bicarbonate 650 mg PO BID 04/30/16 08/25/16 08/27/16 History Carvedilol [Coreg] 25 mg PO BID #60 tablet 05/05/16 08/25/16 08/28/16 05:00 Rx hydrALAZINE [Apresoline TAB] 75 mg PO TID #90 tablet 05/05/16 08/25/16 08/28/16 05:00 Rx HYDROcodone/APAP 7.5-325 [[place] 1 each PO Q6HR PRN #50 tablet 06/26/16 08/25/16 Unknown Rx 7.5-325 mg TAB] HYDROcodone/APAP 7.5-325 [[place] 1 each PO Q6HR PRN #90 tablet 08/28/16 Unknown Rx 7.5/325] Active Meds: Active Medications Sodium Bicarbonate (Sodium Bicarbonate) 50 meq IV ONCE ONE Stop: 02/16/17 17:01 Review of Systems All systems: negative Exam - Vital Signs Vital signs: Vital Signs Temp Pulse Resp BP Pulse Ox 98.1 F 84 16 122/61 97 02/16/17 14:37 02/16/17 14:37 02/16/17 14:37 02/16/17 14:37 02/16/17 14:37 - General Appearance General appearance: well-developed, well-nourished EENT: ATNC Respiratory: Clear to Ascultation Heart: regular, S1S2 Gastrointestinal: Present: normal. 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
[2017-02-16] MEDS ORDERED: PROVENTIL IH PRN (17:15)
[2017-02-16] MEDS ORDERED: ZOFRAN IV PRN (17:15)
[2017-02-16] MEDS ORDERED: TYLENOL PO PRN (17:15)
--- NOTE | 2017-02-16 17:15 | History and Physical Report ---
History of Present Illness Chief complaint: My potassium is high History of present illness: 71 YO Male with ESRD on HD(T,R,Sa), DM, GERD, HTN, CHF, presents to ED for evaluation. Pt states that he was instructed to seek medical attention after he was found to have an elevated serum potassium level. Pt underwent dialysis on day prior to presentation to [facility]. Pt went to outpatient scheduled appointment with the [facility] transplant clinic and had routine bloodwork drawn. Pt was found to have a serum potassium that was greater than 6 and he was told to take Kayexalate. Patient was unable to get kayexelate over the counter, and presents to ED for evaluation. Patient denies any symptoms, but on evaluation was found to be hypoxemic and in respiratory distress. Pt initiated on supplemental oxygen, and patient acknowledges feeling much better, and acknowledging that he was unaware of how short of breath that he was. No reports of fever, chills, CP, Palpitations, NVD, Syncope,Productive cough, or recent ill contacts. Nephrology consulted in ED. Past History Past Medical History: dialysis, ESRD, hypertension, hyperlipidemia, other (Gout) Past Surgical History: Other (AV access creation) Social history: no significant social history Family history: no significant family history Medications and Allergies Allergies Allergy/AdvReac Type Severity Reaction Status Date / Time No Known Allergies Allergy Verified 09/23/16 11:38 Home Medications Medication Instructions Recorded Confirmed Last Taken Type Aspirin [Aspirin BABY CHEW TAB] 81 mg PO DAILY 04/09/13 02/16/17 02/16/17 History Allopurinol [Zyloprim] 100 mg PO QDAY 11/06/14 02/16/17 02/16/17 History Atorvastatin Calcium [Lipitor] 10 mg PO QHS 11/06/14 02/16/17 02/16/17 History Pantoprazole Sodium 40 mg PO QDAY 11/06/14 02/16/17 02/16/17 History Famotidine [Pepcid] 20 mg PO BID 04/30/16 02/16/17 02/16/17 History Furosemide [Lasix TAB] 20 mg PO QDAY 04/30/16 02/16/17 02/16/17 History Insulin NPH/Regular [NovoLIN 70/30] 15 unit SUB-Q BID 04/30/16 02/16/17 History Sodium Bicarbonate 650 mg PO BID 04/30/16 02/16/17 02/16/17 History HYDROcodone/APAP 7.5-325 [[place] 1 each PO Q6HR PRN #90 tablet 08/28/16 02/16/17 02/16/17 Rx 7.5/325] B Complex 11/Folic/C/Biot/Zinc 1 each PO DAILY 02/16/17 02/16/17 02/16/17 History [Dialyvite with Zinc Tablet] Hydralazine HCl 50 mg PO BID 02/16/17 02/16/17 02/16/17 History Metoprolol [Lopressor TAB] 50 mg PO BID 02/16/17 02/16/17 02/16/17 History Active Meds: Active Medications Sodium Chloride (Nacl 0.9%) 100 mls @ 999 mls/hr IV TERRY PRN PRN Reason: Hypotension Review of Systems Constitutional: other (high potassium), no weight loss, no weight gain, no fever , no chills, no sweats Ears, nose, mouth and throat: no ear pain, no ear discharge, no tinnitis, no decreased hearing, no nose pain, no nasal congestion Cardiovascular: shortness of breath, no orthopnea, no palpitations, no rapid/ irregular heart beat, no edema, no syncope Respiratory: no cough, no cough with sputum, no excessive sputum, no hemoptysis Gastrointestinal: no nausea, no vomiting, no diarrhea, no constipation Genitourinary Male: no hematuria, no flank pain, no discharge, no urinary frequency, no urinary hesitancy Rectal: no pain, no incontinence, no bleeding Musculoskeletal: no neck stiffness, no neck pain, no shooting arm pain, no arm numbness/tingling, no low back pain Integumentary: no rash, no pruritis, no redness, no sores, no wounds, no jaundice Neurological: no transient paralysis, no paralysis, no weakness, no parathesias , no numbness, no tingling, no seizures Psychiatric: no anxiety, no memory loss, no change in sleep habits, no sleep disturbances, no insomnia, no hypersomnia, no change in appetite Endocrine: no cold intolerance, no heat intolerance, no polyphagia, no excessive thirst, no polydipsia, no polyuria Hematologic/Lymphatic: no easy bruising, no easy bleeding Allergic/Immunologic: no urticaria, no allergic rhinitis, no wheezing Exam - Constitutional Vitals: Temp Pulse Resp BP Pulse Ox 98.1 F 72 18 131/64 97 02/16/17 14:37 02/16/17 16:19 02/16/17 16:19 02/16/17 16:16 02/16/17 16:19 General appearance: Present: mild distress - EENT Eyes: Present: PERRL ENT: hearing intact, clear oral mucosa - Neck Neck: Present: supple, normal ROM - Respiratory Respiratory effort: normal Respiratory: bilateral: diminished, rhonchi - Cardiovascular Heart Sounds: Present: S1 & S2. Absent: rub, click - Extremities Extremities: pulses symmetrical, No edema Peripheral Pulses: within normal limits - Abdominal General gastrointestinal: Present: soft, non-tender, non-distended, normal bowel sounds Male genitourinary: Present: normal - Integumentary Integumentary: Present: clear, warm, dry - Musculoskeletal Musculoskeletal: gait normal, strength equal bilaterally - Psychiatric Psychiatric: appropriate mood/affect, intact judgment & insight - Neurologic Neurologic: CNII-XII intact, moves all extremities Results - Labs CBC & Chem 7: 02/16/17 14:44 02/16/17 14:44 Labs: Abnormal lab results 02/16/17 02/16/17 Range/Units 14:44 14:44 WBC 12.5 H (4.5-11.0) K/mm3 Hgb 11.3 L (11.8-15.2) gm/dl Hct 33.2 L (35.5-45.6) % RDW 16.6 H (13.2-15.2) % [place] % (Auto) 9.1 H (0.0-7.3) % [place] # 1.1 H (0.0-0.8) K/mm3 Seg Neutrophils % 72.5 H (40.0-70.0) % Seg Neutrophils # 9.1 H (1.8-7.7) K/mm3 Potassium 7.5 H* (3.6-5.0) mmol/L Carbon Dioxide 20 L (22-30) mmol/L BUN 99 H (9-20) mg/dL Creatinine 14.1 H (0.8-1.5) mg/dL Glucose 184 H (75-100) mg/dL Calcium 8.3 L (8.4-10.2) mg/dL Assessment and Plan - Patient Problems (1) Respiratory failure Current Visit: Yes Status: Acute Qualifiers: Chronicity: acute Respiratory failure complication: hypoxia Qualified Code(s): J96.01 - Acute respiratory failure with hypoxia Plan to address problem: Supplemental oxygen, nebulizer therapy, NIPPV as clinically indicated, Nephrology [id number] for urgent dialysis, (2) ESRD needing dialysis Current Visit: Yes Status: Acute Plan to address problem: Nephrology consulted in ED, Pt going to urgent dialysis (3) Hyperkalemia Current Visit: Yes Status: Acute Plan to address problem: Calcium gluconate, Kayexelate, Bicarb. (4) Hyperkalemia Current Visit: No Status: Acute Plan to address problem: Calcium gluconate, kayelelate, nephrology consulted for urgent dialysis. (5) DVT prophylaxis Current Visit: Yes Status: Acute
[2017-02-16] MEDS ORDERED: KIONEX PO STA (19:23)
--- NOTE | 2017-02-16 20:11 | Event Note ---
Discussed care plan with Cover Cutter. Pt does not meet ICU criteria at this time. Recommend continued care and dialysis. No EKG changes. Pt hyperkalemia treated in ED. further treatment as per Cover Cutter. Dialysis as per renal team.
[2017-02-16 20:16] LABS: Calcium 8.4 mg/dL (8.4-10.2); Chloride 98.1 mmol/L (98-107)
[2017-02-16 20:27] LABS: Potassium 7.2 mmol/L (3.6-5.0)
[2017-02-16] MEDS: KIONEX PO SCH (22:25)
--- NOTE | 2017-02-17 06:39 | Progress Note ---
Assessment and Plan Assessment and plan: 71M sent to ER by his doctor for abnormal labs, found to have severely elevated K Hyperkalemia was medically rx and planned for HD, improving Respiratory failure was ruled out ESRD needing dialysis Nephrology consult appreciated, continue HD AV graft malfunction -Vasc surgery planned to declot it Hospitalist Physical - Constitutional Vitals: Temp Pulse Resp BP Pulse Ox 98.9 F 86 18 117/62 95 02/17/17 04:09 02/17/17 04:09 02/17/17 04:09 02/17/17 04:09 02/17/17 04:09 General appearance: Present: mild distress Results - Labs CBC & Chem 7: 02/16/17 14:44 02/17/17 06:12 Labs: Laboratory Last Values WBC 12.5 K/mm3 (4.5-11.0) H 02/16/17 14:44 RBC 3.71 M/mm3 (3.65-5.03) 02/16/17 14:44 Hgb 11.3 gm/dl (11.8-15.2) L 02/16/17 14:44 Hct 33.2 % (35.5-45.6) L 02/16/17 14:44 MCV 90 fl (84-94) 02/16/17 14:44 MCH 31 pg (28-32) 02/16/17 14:44 MCHC 34 % (32-34) 02/16/17 14:44 RDW 16.6 % (13.2-15.2) H 02/16/17 14:44 Plt Count 195 K/mm3 (140-440) 02/16/17 14:44 Lymph % (Auto) 14.4 % (13.4-35.0) 02/16/17 14:44 [place] % (Auto) 9.1 % (0.0-7.3) H 02/16/17 14:44 Eos % (Auto) 2.9 % (0.0-4.3) 02/16/17 14:44 Baso % (Auto) 1.1 % (0.0-1.8) 02/16/17 14:44 Lymph # 1.8 K/mm3 (1.2-5.4) 02/16/17 14:44 [place] # 1.1 K/mm3 (0.0-0.8) H 02/16/17 14:44 Eos # 0.4 K/mm3 (0.0-0.4) 02/16/17 14:44 Baso # 0.1 K/mm3 (0.0-0.1) 02/16/17 14:44 Seg Neutrophils % 72.5 % (40.0-70.0) H 02/16/17 14:44 Seg Neutrophils # 9.1 K/mm3 (1.8-7.7) H 02/16/17 14:44 Sodium 140 mmol/L (137-145) 02/16/17 19:50 Potassium 5.9 mmol/L (3.6-5.0) H 02/17/17 02:40 Chloride 98.1 mmol/L (98-107) 02/16/17 19:50 Carbon Dioxide 22 mmol/L (22-30) 02/16/17 19:50 Anion Gap 27 mmol/L 02/16/17 19:50 BUN 106 mg/dL (9-20) H 02/16/17 19:50 Creatinine 13.9 mg/dL (0.8-1.5) H 02/16/17 19:50 Estimated GFR 4 ml/min 02/16/17 19:50 BUN/Creatinine Ratio 8 % 02/16/17 19:50 Glucose 80 mg/dL (75-100) 02/16/17 19:50 POC Glucose 113 (70-105) H 02/16/17 22:08 Calcium 8.4 mg/dL (8.4-10.2) 02/16/17 19:50 Total Bilirubin 0.30 mg/dL (0.1-1.2) 02/16/17 14:44 AST 6 units/L (5-40) 02/16/17 14:44 ALT 8 units/L (7-56) 02/16/17 14:44 Alkaline Phosphatase 79 units/L (35-129) 02/16/17 14:44 Total Protein 7.3 g/dL (6.3-8.2) 02/16/17 14:44 Albumin 3.9 g/dL (3.9-5) 02/16/17 14:44 Albumin/Globulin Ratio 1.1 % 02/16/17 14:44
[2017-02-17 06:59] LABS: Calcium 8.2 mg/dL (8.4-10.2); Chloride 97.6 mmol/L (98-107); Potassium 5.4 mmol/L (3.6-5.0)
[2017-02-17] MEDS: KIONEX PO SCH ×2 (08:40→09:22)
[2017-02-17] MEDS ORDERED: HEPARIN/NS 5000 UNIT/500ML(CATH LAB) 1,000 ML IR ONE (08:41)
[2017-02-17] MEDS ORDERED: HEPARIN 10,000 UNITS/10 ML ONE (08:41)
[2017-02-17] MEDS ORDERED: ANCEF/STERILE WATER 2 GM/20 ML 2 GM/20 ML SYRINGE IV ONE (08:42)
[2017-02-17] MEDS ORDERED: XYLOCAINE 2% INFILTRATI ONE (08:42)
[2017-02-17] MEDS ORDERED: NACL 0.9% 250ML 250 ML ONE (08:42)
--- NOTE | 2017-02-17 08:43 | Consultation ---
History of Present Illness - Reason for Consult Consult date: 02/17/17 Malfunctioning AV access Requesting physician: MARYANA BIANCHI - History of Present Illness 71-year-old male with a past medical history of CHF, diabetes, GERD, hypertension, end-stage renal disease on dialysis Sunday, , and Sunday presents to the hospital with complaints of elevated potassium. He had 4 hrs of dialysis on , but had an elevated potassium despite this. His dialysis machine was malfunctioning a lot during the dialysis session. He was admitted was moderate hyperkalemia which was able to be medically managed overnight. His LUE AVF has a weak pulse and is likely partially or completely thrombosed with water-hammer pulse. Past History Past Medical History: dialysis, ESRD, hypertension, hyperlipidemia, other (Gout) Past Surgical History: Other (AV access creation) Social history: no significant social history Family history: no significant family history Medications and Allergies Allergies Allergy/AdvReac Type Severity Reaction Status Date / Time No Known Allergies Allergy Verified 09/23/16 11:38 Home Medications Medication Instructions Recorded Confirmed Last Taken Type Aspirin [Aspirin BABY CHEW TAB] 81 mg PO DAILY 04/09/13 02/16/17 02/16/17 History Allopurinol [Zyloprim] 100 mg PO QDAY 11/06/14 02/16/17 02/16/17 History Atorvastatin Calcium [Lipitor] 10 mg PO QHS 11/06/14 02/16/17 02/16/17 History Pantoprazole Sodium 40 mg PO QDAY 11/06/14 02/16/17 02/16/17 History Famotidine [Pepcid] 20 mg PO BID 04/30/16 02/16/17 02/16/17 History Furosemide [Lasix TAB] 20 mg PO QDAY 04/30/16 02/16/17 02/16/17 History Insulin NPH/Regular [NovoLIN 70/30] 15 unit SUB-Q BID 04/30/16 02/16/17 History Sodium Bicarbonate 650 mg PO BID 04/30/16 02/16/17 02/16/17 History HYDROcodone/APAP 7.5-325 [[place] 1 each PO Q6HR PRN #90 tablet 08/28/16 02/16/17 02/16/17 Rx 7.5/325] B Complex 11/Folic/C/Biot/Zinc 1 each PO DAILY 02/16/17 02/16/17 02/16/17 History [Dialyvite with Zinc Tablet] Hydralazine HCl 50 mg PO BID 02/16/17 02/16/17 02/16/17 History Metoprolol [Lopressor TAB] 50 mg PO BID 02/16/17 02/16/17 02/16/17 History Active Meds: Active Medications Acetaminophen (Tylenol) 650 mg PO Q4H PRN PRN Reason: Pain MILD(1-3)/Fever >100.5/SWAN Albuterol (Proventil) 2.5 mg IH Q4HRT PRN PRN Reason: Shortness Of Breath Sodium Chloride (Nacl 0.9%) 100 mls @ 999 mls/hr IV TERRY PRN PRN Reason: Hypotension Ondansetron HCl (Zofran) 4 mg IV Q8H PRN PRN Reason: N/V unrelieved by Reglan Sodium Polystyrene Sulfonate (Kionex) 30 gm PO Q6H ZARINA Stop: 02/17/17 09:01 Last Admin: 02/17/17 08:40 Dose: Not Given Review of Systems All systems: negative (see HPI) Exam - Constitutional Vitals: Temp Pulse Resp BP Pulse Ox 98.1 F 86 20 135/66 95 02/17/17 08:37 02/17/17 04:09 02/17/17 08:31 02/17/17 08:31 02/17/17 04:09 General appearance: Present: no acute distress - EENT Eyes: Present: EOM intact ENT: hearing intact - Respiratory Respiratory effort: normal - Extremities Extremities: normal temperature, normal color, abnormal (weak pulse of AVF LUE brachiobasilic) - Abdominal General gastrointestinal: Present: soft - Psychiatric Psychiatric: appropriate mood/affect, cooperative Results - Labs CBC & Chem 7: 02/16/17 14:44 02/17/17 06:12 Labs: Abnormal lab results 02/16/17 02/16/17 02/16/17 Range/Units 19:50 21:16 22:08 Potassium 7.2 H* 6.5 H* (3.6-5.0) mmol/L Chloride (98-107) mmol/L Carbon Dioxide (22-30) mmol/L BUN 106 H (9-20) mg/dL Creatinine 13.9 H (0.8-1.5) mg/dL POC Glucose 113 H (70-105) Calcium (8.4-10.2) mg/dL 02/17/17 02/17/17 Range/Units 02:40 06:12 Potassium 5.9 H 5.4 H (3.6-5.0) mmol/L Chloride 97.6 L (98-107) mmol/L Carbon Dioxide 21 L (22-30) mmol/L BUN 104 H (9-20) mg/dL Creatinine 15.3 H (0.8-1.5) mg/dL POC Glucose (70-105) Calcium 8.2 L (8.4-10.2) mg/dL Assessment and Plan 71-year-old male with malfunctioning left upper extremity brachial basilic AV fistula who was admitted with moderate hyperkalemia which was medically managed. Brought down for fistulogram/declot. If unsuccessful, PermCath will need to be placed. Risks, benefits, and alternatives discussed with patient.
[2017-02-17] MEDS: SUBLIMAZE ONE ×5 (09:14→10:48)
[2017-02-17] MEDS: VERSED ONE ×5 (09:14→10:13)
[2017-02-17] MEDS ORDERED: BENADRYL ONE (09:58)
--- NOTE | 2017-02-17 10:47 | Progress Note ---
Assessment and Plan - Patient Problems (1) Hyperkalemia Current Visit: No Status: Acute Plan to address problem: K-better (2) ESRD (end stage renal disease) Current Visit: Yes Status: Acute Plan to address problem: HD today-orders given to dialysis nurse. Pt goes to [facility] on T/T/S. If no problem with dialysis access today-pt can go back to dialysis center next week per his schedule (3) Dialysis AV fistula malfunction Current Visit: Yes Status: Acute Qualifiers: Encounter type: E (4) Uremia Current Visit: Yes Status: Acute (5) Diabetes Current Visit: Yes Status: Acute Qualifiers: Diabetes mellitus type: D Diabetes mellitus complication status: D Diabetes mellitus complication detail: D Diabetic retinopathy severity: D Proliferative retinopathy type: P Diabetes mellitus macular edema: D Diabetes mellitus intermediate accountant insulin use: D Laterality: L Chronic kidney disease stage: C Subjective Date of service: 02/17/17 Interval history: alert, oriented, just came back from AV access procedure. Discussed with Objective - Vital Signs Vital signs: Vital Signs - 12hr 02/17/17 02/17/17 02/17/17 04:09 08:31 08:37 Temperature 98.9 F 98.1 F Pulse Rate 86 Respiratory 18 20 Rate Blood Pressure 117/62 135/66 O2 Sat by Pulse 95 Oximetry - General Appearance General appearance: well-developed EENT: mucous membranes moist Neck: no JVD Respiratory: Present: Clear to Ascultation Cardiology: regular Gastrointestinal: normoactive bowel sounds Neurologic: alert and oriented x3 Musculoskeletal: other (1+edema, left upper arm AV access has bruit, thrill) Psychiatric: mood/affect appropriate, cooperative - Lab 02/16/17 14:44 02/17/17 06:12 Most recent lab results Calcium 8.2 mg/dL (8.4-10.2) L 02/17/17 06:12
[2017-02-17] MEDS ORDERED: NACL 0.9% 100 ML IV PRN (11:03)
--- NOTE | 2017-02-17 11:26 | Operative Report ---
Operative Report Operative Report: EXAM: 1. Ultrasound-guided access of the brachial basilic AV fistula towards the venous outflow 2. Selection of the left innominate vein with angiography 3. Fistulogram 4. Angioplasty of the central basilic vein with a 7 mm x 60 mm angioplasty balloon 5. Angioplasty of the central basilic vein with a 7 mm x 40 mm conquest balloon. 6. Ultrasound-guided access of the brachiocephalic AV fistula towards the arterial anastomosis 7. Selection of the brachial artery and a retrograde fashion with angiography 8. Thrombectomy of the midportion of the basilic vein with an angioplasty balloon and central sweeping 9. Angioplasty of the anastomosis, perianastomotic region, mid and peripheral basilic vein with a 6 mm angioplasty balloon 10. Angioplasty of the anastomosis and basilic basilic anastomosis in the peripheral basilic vein with a 6 mm conquest angioplasty balloon 11. Angioplasty of the central basilic vein with a 7 mm x 60 mm angioplasty balloon 12. Ultrasound-guided access of the brachial basilic AV fistula towards the venous outflow INDICATION: THROMBOSED LEFT ARM AV FISTULA WITH END-STAGE RENAL DISEASE. DATE: 02/17/17 MEDICATIONS: Please refer to nursing documentation for complete list of medications and heparin administration. VERSED AND FENTANYL TITRATED TO MODERATE SEDATION. THE PATIENT WAS MONITORED UNDER CONTINUOUS CARDIOPULMONARY MONITORING THROUGHOUT THE CASE. COMPLICATIONS: NONE IMMEDIATE BRUSH OR BROOM CUTTER: JOEY MORRIS MD PROCEDURE: The procedure was discussed with the patient and the risks, benefits, and alternatives were discussed with the patient. Informed consent was obtained. The patient was transported into the angiography suite in stable condition and placed on the angiographic table. The left arm was assessed under real-time ultrasound which demonstrated a partially thrombosed left arm AV fistula. The patient was prepped and draped in a sterile fashion. Lidocaine was used to anesthetize the skin. Under ultrasound guidance, the AV fistula was punctured with the needle pointing towards the venous limb. 0.018 inch wire was advanced through the needle and this was exchanged for a transitional dilator. The inner dilator and wire were removed and a 0.035 inch [place] wire was advanced through the transitional dilator. The dilator was exchanged for a 7 Spanish short sheath. Angled catheter was advanced over the wire and the wire was advanced into the inferior vena cava under fluoroscopic guidance. Then the wire was removed and the Angled catheter was used to perform a pullback venogram. Digital subtraction venography was performed in the left brachiocephalic vein which demonstrated no central obstruction to flow. Gentle angiography demonstrated a 99% narrowing of the distal basilic vein. Catheter was exchanged for an 7 mm x 4 cm balloon and the distal basilic vein was angioplastied. The balloon was used to sweep from the sheath to the central veins. Digital subtraction angiography demonstrated a residual narrowing. There was a moderate residual waist that was 50%. Balloon was exchanged for 7 mm x 4 cm conquest balloon and angioplasty of the distal basilic vein was repeated until profile of the balloon was obtained. Digital subtraction angiography was performed demonstrated 30% residual narrowing which would be addressed later. The arm was then punctured towards the arterial anastomosis under ultrasound guidance. 0.018 inch wire was advanced through the needle and exchanged for transitional dilator. The inner dilator and wire were removed and a 0.035 inch [place] wire was advanced to the transitional dilator. The dilator was exchanged for 6 Spanish short sheath. The angled catheter was advanced over the 0.035 wire and the wire was advanced into the [place] brachial artery in a retrograde fashion. Digital subtraction angiography was performed which demonstrated patency of the tortuous brachial artery, axillary artery, and proximal ulnar and radial artery. The anastomosis was 99% narrowed, the perianastomotic region was again 99% narrowed. The midportion of the fistula was thrombosed. 6 mm angioplasty balloon was advanced over the wire and used to perform angioplasty across a long segment from the anastomosis to the sheath. There was a moderate residual waist which had to be angioplastied with a 6 mm conquest angioplasty balloon. This was at the basilic basilic anastomosis. The conquest angioplasty balloon was also used to dilate the anastomosis to the brachial artery. The balloon was then used to sweep the fistula to push any clot central. Blood was aspirated from both sheaths. Catheter was exchanged for an angled catheter digital subtraction angiography was performed demonstrating patency throughout the basilic AV fistula along the anastomotic, perianastomotic, and peripheral and midportion of the AV fistula. Digital subtraction angiography demonstrated recoil and severe 90% narrowing at the distal basilic vein. 7 mm x 60 mm angioplasty with balloon is used to dilate the distal basilic vein multiple times but this was unsuccessful due to the location of the sheaths. There is also small amount of extravasation which had to be balloon tamponaded for 5 minutes. This resulted in cessation and extravasation. Under ultrasound guidance, I cannulated the midportion of the AV fistula. 0.018 inch wire was passed to the 21-gauge micropuncture needle. Needle was exchanged for transitional dilator. Wire was exchanged for a 0.035 inch wire. Transitional dilator was exchanged for 7 Spanish sheath. I then proceeded to remove the other 2 sheaths and close these fistulotomy's with 3-0 Vicryl. Immediate hemostasis was achieved. I then used a 7 mm angioplasty below the perform angioplasty across the distal basilic vein. Digital subtraction angiography demonstrated resolution of the narrowing, however there is still a 20-30% residual narrowing noted at a focal location. All the wires were removed. 3-0 Vicryl sutures were used to close the fistula access sites. Dermabond was applied. Pressure was held until hemostasis was achieved. The patient was then transferred to the outpatient recovery area. FINDINGS: Please see the procedure note for the findings. IMPRESSION: 1. Successful balloon assisted thrombectomy of the partially thrombosed left AV fistula. 2. Successful venoplasty of the arterial anastamosis, entirety of the basilic vein, with mild residual narrowing at the distal basilic vein.
[2017-02-18 07:40] VITALS: BP 109/49
--- NOTE | 2017-02-18 09:10 | Progress Note ---
Hospitalist Physical - Constitutional Vitals: Temp Pulse Resp BP Pulse Ox 98.9 F 83 18 109/49 97 02/18/17 07:02 02/18/17 07:02 02/18/17 07:02 02/18/17 07:02 02/18/17 07:02 General appearance: Present: mild distress Results - Labs CBC & Chem 7: 02/16/17 14:44 02/17/17 06:12 Labs: Laboratory Last Values WBC 12.5 K/mm3 (4.5-11.0) H 02/16/17 14:44 RBC 3.71 M/mm3 (3.65-5.03) 02/16/17 14:44 Hgb 11.3 gm/dl (11.8-15.2) L 02/16/17 14:44 Hct 33.2 % (35.5-45.6) L 02/16/17 14:44 MCV 90 fl (84-94) 02/16/17 14:44 MCH 31 pg (28-32) 02/16/17 14:44 MCHC 34 % (32-34) 02/16/17 14:44 RDW 16.6 % (13.2-15.2) H 02/16/17 14:44 Plt Count 195 K/mm3 (140-440) 02/16/17 14:44 Lymph % (Auto) 14.4 % (13.4-35.0) 02/16/17 14:44 [place] % (Auto) 9.1 % (0.0-7.3) H 02/16/17 14:44 Eos % (Auto) 2.9 % (0.0-4.3) 02/16/17 14:44 Baso % (Auto) 1.1 % (0.0-1.8) 02/16/17 14:44 Lymph # 1.8 K/mm3 (1.2-5.4) 02/16/17 14:44 [place] # 1.1 K/mm3 (0.0-0.8) H 02/16/17 14:44 Eos # 0.4 K/mm3 (0.0-0.4) 02/16/17 14:44 Baso # 0.1 K/mm3 (0.0-0.1) 02/16/17 14:44 Seg Neutrophils % 72.5 % (40.0-70.0) H 02/16/17 14:44 Seg Neutrophils # 9.1 K/mm3 (1.8-7.7) H 02/16/17 14:44 Sodium 142 mmol/L (137-145) 02/17/17 06:12 Potassium 5.4 mmol/L (3.6-5.0) H 02/17/17 06:12 Chloride 97.6 mmol/L (98-107) L 02/17/17 06:12 Carbon Dioxide 21 mmol/L (22-30) L 02/17/17 06:12 Anion Gap 29 mmol/L 02/17/17 06:12 BUN 104 mg/dL (9-20) H 02/17/17 06:12 Creatinine 15.3 mg/dL (0.8-1.5) H 02/17/17 06:12 Estimated GFR 4 ml/min 02/17/17 06:12 BUN/Creatinine Ratio 7 % 02/17/17 06:12 Glucose 99 mg/dL (75-100) 02/17/17 06:12 POC Glucose 113 (70-105) H 02/16/17 22:08 Calcium 8.2 mg/dL (8.4-10.2) L 02/17/17 06:12 Total Bilirubin 0.30 mg/dL (0.1-1.2) 02/16/17 14:44 AST 6 units/L (5-40) 02/16/17 14:44 ALT 8 units/L (7-56) 02/16/17 14:44 Alkaline Phosphatase 79 units/L (35-129) 02/16/17 14:44 Total Protein 7.3 g/dL (6.3-8.2) 02/16/17 14:44 Albumin 3.9 g/dL (3.9-5) 02/16/17 14:44 Albumin/Globulin Ratio 1.1 % 02/16/17 14:44
--- NOTE | 2017-02-18 09:18 | Discharge Summary ---
Providers - Providers Date of Admission: 02/16/17 17:15 Attending physician: RAE LLOYD MD 02/16/17 19:22 Consult to Physician [CONS] Routine Consulting Provider: JOEY RIOS Reason For Exam: Malfunctioning AV access Place consult to:: dr. rios Notified:: yes Was contact made?: Yes If yes, spoke with:: Dr. Rios Time called:: 19:15 Primary care physician: BETSEY PEDRO MD Hospitalization Condition: Stable Hospital course: 71M sent to ER by his doctor for abnormal labs, found to have severely elevated K Hyperkalemia was medically rx and planned for HD, improving Respiratory failure was ruled out ESRD needing dialysis Nephrology consult appreciated, continue HD AV graft malfunction -Vasc surgery planned to declot it Exam - Constitutional Vitals: Temp Pulse Resp BP Pulse Ox 98.9 F 83 18 109/49 97 02/18/17 07:02 02/18/17 07:02 02/18/17 07:02 02/18/17 07:02 02/18/17 07:02 Plan Follow up with: BETSEY PEDRO MD [Primary Care Provider] - 7 Days
== END 2017-02-18 11:05 | disposition home or self-care (01) | DRG 252 ==
LOC: ED 14:18 → 2B-ACE 17:15
PROVIDERS: ADMIT Internal Medicine; ATTEND Internal Medicine
PROC: 05743ZZ Dilation of Left Innominate Vein, Percutaneous Approach (ICD-10-PCS; principal; 2017-02-17)
PROC: 057C3ZZ Dilation of Left Basilic Vein, Percutaneous Approach (ICD-10-PCS; 2017-02-17)
PROC: 05CC3ZZ Extirpation of Matter from Left Basilic Vein, Percutaneous Approach (ICD-10-PCS; 2017-02-17)
PROC: 051 Upper Veins, Bypass (ICD-10-PCS; 2017-02-17)
PROC: 5A1D70Z Performance of Urinary Filtration, Intermittent, Less than 6 Hours Per Day (ICD-10-PCS; 2017-02-17)
PROC: B51W1ZZ Fluoroscopy of Dialysis Shunt/Fistula using Low Osmolar Contrast (ICD-10-PCS; 2017-02-17)
PROC: B31N1ZZ Fluoroscopy of Other Upper Arteries using Low Osmolar Contrast (ICD-10-PCS; 2017-02-17)
PROC: B54NZZA Ultrasonography of Left Upper Extremity Veins, Guidance (ICD-10-PCS; 2017-02-17)
DX: T82.868A Thrombosis due to vascular prosthetic devices, implants and grafts, initial encounter (principal); N18.6 End stage renal disease; I13.2 Hypertensive heart and chronic kidney disease with heart failure and with stage 5 chronic kidney disease, or end stage renal disease; E87.70 Fluid overload, unspecified; E87.5 Hyperkalemia; K21.9 Gastro-esophageal reflux disease without esophagitis; E11.22 Type 2 diabetes mellitus with diabetic chronic kidney disease; I50.9 Heart failure, unspecified; Z99.2 Dependence on renal dialysis; E78.5 Hyperlipidemia, unspecified; Y84.1 Kidney dialysis as the cause of abnormal reaction of the patient, or of later complication, without mention of misadventure at the time of the procedure; M10.9 Gout, unspecified; Z79.82 Long term (current) use of aspirin; Z79.899 Other long term (current) drug therapy; Y92.89 Other specified places as the place of occurrence of the external cause
CPT/HCPCS: 36415; 36905; 80048; 80053; 82962; 84132; 85025; 93005; 93010; 94640; C1725; C1751; C1769; C1894; J0610; J0690; J1200; J1644; J1815; J2250; J3010; J7050; Q9967

== ENCOUNTER 2017-06-21 16:41 | Emergency (ER) | payer MEDICARE ==
[2017-06-21 17:31] LABS: Basophils # (Auto) 0.1 K/mm3 (0.0-0.1); Basophils % (Auto) 1.2 % (0.0-1.8); Eosinophils # (Auto) 0.4 K/mm3 (0.0-0.4); Eosinophils % (Auto) 3.7 % (0.0-4.3); Hematocrit 38.9 % (35.5-45.6); Hemoglobin 12.9 gm/dl (11.8-15.2); Lymphocytes # (Auto) 1.8 K/mm3 (1.2-5.4); Lymphocytes % (Auto) 17.5 % (13.4-35.0); Mean Corpuscular HGB Conc 33 % (32-34); Mean Corpuscular Hemoglobin 29 pg (28-32); Mean Corpuscular Volume 86 fl (84-94); Monocytes # (Auto) 1.1 K/mm3 (0.0-0.8); Monocytes % (Auto) 11.2 % (0.0-7.3); Platelet Count 250 K/mm3 (140-440); Red Cell Distribution Width 17.1 % (13.2-15.2)
[2017-06-21 17:39] LABS: Calcium 8.6 mg/dL (8.4-10.2)
[2017-06-21] MEDS ORDERED: LOPRESSOR PO ONE (18:42)
[2017-06-21 19:34] LABS: INR 1.03 (0.87-1.13)
[2017-06-21 19:47] LABS: Free T4 (Free Thyroxine) 1.1 ng/dL (0.76-1.46)
--- NOTE | 2017-06-21 19:48 | Emergency Department Report ---
ED Palpitations HPI - General Chief Complaint: Arrhythmia/Palpitations Stated Complaint: HTN/TACHY POST DIALYSIS Time Seen by Provider: 06/21/17 18:32 Source: patient, EMS, old records reviewed Mode of arrival: Wheelchair Limitations: No Limitations - History of Present Illness Initial Comments: 72-year-old male with a past medical history of end-stage disease on dialysis, diabetes, GERD, and anemia presents to the hospital complains of only a heart rate after receiving dialysis. Patient states he was able to complete his full dialysis prior to being sent to the ED. States his heart rate was fine prior to dialysis and noted to be elevated afterwards. He denies any symptoms including chest pain, shortness of breath, palpitations, lightheadedness, dizziness, or shortness of breath. Patient states he had a similar episode in the past prior to being started on his metoprolol. Patient takes metoprolol 50 mg twice a day at 9:30 AM and at 3 PM. He took his morning dose but is overdue for his afternoon dose which he typically takes after dialysis. He denies any calf tenderness, edema, recent travel, or pleuritic chest pain there PMD: Dr. Wes Stone. Edge Blacker: Dr. Weathers - Related Data Home Medications Medication Instructions Recorded Confirmed Last Taken Aspirin [Aspirin BABY CHEW TAB] 81 mg PO DAILY 04/09/13 02/16/17 02/16/17 Allopurinol [Zyloprim] 100 mg PO QDAY 11/06/14 02/16/17 02/16/17 Atorvastatin Calcium [Lipitor] 10 mg PO QHS 11/06/14 02/16/17 02/16/17 Pantoprazole Sodium 40 mg PO QDAY 11/06/14 02/16/17 02/16/17 Famotidine [Pepcid] 20 mg PO BID 04/30/16 02/16/17 02/16/17 Furosemide [Lasix TAB] 20 mg PO QDAY 04/30/16 02/16/17 02/16/17 Sodium Bicarbonate 650 mg PO BID 04/30/16 02/16/17 02/16/17 B Complex 11/Folic/C/Biot/Zinc 1 each PO DAILY 02/16/17 02/16/17 02/16/17 [Dialyvite with Zinc Tablet] Hydralazine HCl 50 mg PO BID 11/01/2302/16/17 02/16/17 Metoprolol [Lopressor TAB] 50 mg PO BID 02/16/17 02/16/17 02/16/17 Previous Rx's Medication Instructions Recorded Last Taken Type HYDROcodone/APAP 7.5-325 [[place] 1 each PO Q6HR PRN #90 tablet 08/28/16 02/16/17 Rx 7.5-325 mg TAB] Allergies Allergy/AdvReac Type Severity Reaction Status Date / Time No Known Allergies Allergy Verified 09/23/16 11:38 ED Review of Systems ROS: Stated complaint: HTN/TACHY POST DIALYSIS Other details as noted in HPI Comment: All other systems reviewed and negative Other: Constitutional: No fevers chills Eyes: No eye pain visual changes ENT: No ear pain or throat pain Neck: Denies pain Respiratory: Denies cough wheezing shortness of breath Cardiovascular: Denies chest pain, palpitations, syncope GI: Denies abdominal pain, nausea, vomiting, diarrhea : Denies dysuria Musculoskeletal: Denies back pain Skin: Denies rash, lesions, erythema Neurologic: Denies headache, numbness, weakness Psychiatric: Denies suicidal ideation, hallucinations ED Past Medical Hx - Past Medical History Hx Hypertension: Yes (10YRS) Hx CVA: No Hx Heart Attack/AMI: (echo 04/25 n) Hx Congestive Heart Failure: No Hx Diabetes: Yes (10YRS) Hx Deep Vein Thrombosis: No Hx Pulmonary Embolism: No Hx GERD: Yes Hx Liver Disease: No Hx Renal Disease: Yes (ESRD on HD //Sun) Hx Sickle Cell Disease: No Hx Arthritis: No Hx Headaches / Migraines: No Hx Seizures: No Hx Kidney Stones: No Hx Psychiatric Treatment: No Hx Asthma: No Hx COPD: No Hx Tuberculosis: No Hx Dementia: No Hx HIV: No Additional medical history: anemia-ac; - Surgical History Past Surgical History?: Yes Hx Coronary Stent: No Hx Open Heart Surgery: No Hx Pacemaker: No Hx Internal Defibrillator: No Hx Cholecystectomy: No Hx Appendectomy: No Hx Breast Surgery: No Additional Surgical History: VAS CATH r sclavian. fistula lue - Social History Smoking Status: Current Some Day Smoker Substance Use Type: None - Medications Home Medications: Home Medications Medication Instructions Recorded Confirmed Last Taken Type Aspirin [Aspirin BABY CHEW TAB] 81 mg PO DAILY 04/09/13 02/16/17 02/16/17 History Allopurinol [Zyloprim] 100 mg PO QDAY 11/06/14 02/16/17 02/16/17 History Atorvastatin Calcium [Lipitor] 10 mg PO QHS 11/06/14 02/16/17 02/16/17 History Pantoprazole Sodium 40 mg PO QDAY 11/06/14 02/16/17 02/16/17 History Famotidine [Pepcid] 20 mg PO BID 04/30/16 02/16/17 02/16/17 History Furosemide [Lasix TAB] 20 mg PO QDAY 04/30/16 02/16/17 02/16/17 History Sodium Bicarbonate 650 mg PO BID 04/30/16 02/16/17 02/16/17 History HYDROcodone/APAP 7.5-325 [[place] 1 each PO Q6HR PRN #90 tablet 08/28/16 02/16/17 02/16/17 Rx 7.5-325 mg TAB] B Complex 11/Folic/C/Biot/Zinc 1 each PO DAILY 02/16/17 02/16/17 02/16/17 History [Dialyvite with Zinc Tablet] Hydralazine HCl 50 mg PO BID 02/16/17 02/16/17 02/16/17 History Metoprolol [Lopressor TAB] 50 mg PO BID 02/16/17 02/16/17 02/16/17 History ED Physical Exam - General Limitations: No Limitations - Other Other exam information: General: No limitations, patient is alert in no acute distress Head exam: Atraumatic, normocephalic Eyes exam: Normal appearance ENT: Moist mucous membrane, normal oropharynx Neck exam: Normal inspection, full range of motion, no meningismus nontender Respiratory exam: Clear to auscultation bilateral, no wheezes, rales, crackles Cardiovascular: Tachycardic regular rhythm Abdomen: Soft, nondistended, and nontender, with normal bowel sounds, no rebound, or guarding Extremity: Full range of motion normal inspection no deformity, left upper arm dialysis access was positive thrill, no calf tenderness or edema Back: Normal Inspection, full range of motion, no tenderness Neurologic: Alert, oriented x3, cranial nerves intact, no motor or sensory deficit Psychiatric: normal affect, normal mood Skin: Warm, dry, intact ED Course Vital Signs 06/21/17 06/21/17 06/21/17 17:01 18:37 18:38 Temperature 97.9 F 98.0 F Pulse Rate 137 H 133 H Pulse Rate [ Lying] Pulse Rate [ Sitting] Pulse Rate [ Standing] Respiratory 16 15 15 Rate Blood Pressure 142/88 Blood Pressure [Lying] Blood Pressure 135/91 [Right] Blood Pressure [Sitting] Blood Pressure [Standing] O2 Sat by Pulse 97 100 100 Oximetry 06/21/17 06/21/17 06/21/17 18:50 19:35 20:00 Temperature Pulse Rate 68 68 Pulse Rate [ 132 H Lying] Pulse Rate [ 134 H Sitting] Pulse Rate [ 137 H Standing] Respiratory 15 13 Rate Blood Pressure 133/100 158/81 Blood Pressure 135/91 [Lying] Blood Pressure [Right] Blood Pressure 135/92 [Sitting] Blood Pressure 127/87 [Standing] O2 Sat by Pulse 100 100 Oximetry - Reevaluation(s) Reevaluation #1: 06/21/17 20:40 patient remains asymptomatic. Lopressor 50 mg by mouth provided and now heart rate is in the 60s - Consultations Consultation #1: 06/21/17 20:[address] Amaro. She recommends Kayexalate 30 g by mouth for mild hyperkalemia. ED Medical Decision Making - Lab Data Result diagrams: 06/21/17 17:19 06/21/17 17:19 Lab Results 06/21/17 06/21/17 06/21/17 Range/Units 17:19 17:19 19:04 WBC 10.1 (4.5-11.0) K/mm3 RBC 4.50 (3.65-5.03) M/mm3 Hgb 12.9 (11.8-15.2) gm/dl Hct 38.9 (35.5-45.6) % MCV 86 (84-94) fl MCH 29 (28-32) pg MCHC 33 (32-34) % RDW 17.1 H (13.2-15.2) % Plt Count 250 (140-440) K/mm3 Lymph % (Auto) 17.5 (13.4-35.0) % Branch % (Auto) 11.2 H (0.0-7.3) % Eos % (Auto) 3.7 (0.0-4.3) % Baso % (Auto) 1.2 (0.0-1.8) % Lymph # 1.8 (1.2-5.4) K/mm3 Branch # 1.1 H (0.0-0.8) K/mm3 Eos # 0.4 (0.0-0.4) K/mm3 Baso # 0.1 (0.0-0.1) K/mm3 Seg Neutrophils % 66.4 (40.0-70.0) % Seg Neutrophils # 6.7 (1.8-7.7) K/mm3 PT 14.0 (12.2-14.9) Sec. INR 1.03 (0.87-1.13) Sodium 140 (137-145) mmol/L Potassium 5.5 H (3.6-5.0) mmol/L Chloride 100.1 (98-107) mmol/L Carbon Dioxide 26 (22-30) mmol/L Anion Gap 19 mmol/L BUN 36 H (9-20) mg/dL Creatinine 8.0 H (0.8-1.5) mg/dL Estimated GFR 8 ml/min BUN/Creatinine Ratio 5 % Glucose 164 H (75-100) mg/dL Calcium 8.6 (8.4-10.2) mg/dL Troponin T 0.013 (0.00-0.029) ng/mL TSH (0.270-4.200) mlU/mL Free T4 (0.76-1.46) ng/dL 06/21/17 06/21/17 Range/Units 19:04 19:41 WBC (4.5-11.0) K/mm3 RBC (3.65-5.03) M/mm3 Hgb (11.8-15.2) gm/dl Hct (35.5-45.6) % MCV (84-94) fl MCH (28-32) pg MCHC (32-34) % RDW (13.2-15.2) % Plt Count (140-440) K/mm3 Lymph % (Auto) (13.4-35.0) % Branch % (Auto) (0.0-7.3) % Eos % (Auto) (0.0-4.3) % Baso % (Auto) (0.0-1.8) % Lymph # (1.2-5.4) K/mm3 Branch # (0.0-0.8) K/mm3 Eos # (0.0-0.4) K/mm3 Baso # (0.0-0.1) K/mm3 Seg Neutrophils % (40.0-70.0) % Seg Neutrophils # (1.8-7.7) K/mm3 PT (12.2-14.9) Sec. INR (0.87-1.13) Sodium (137-145) mmol/L Potassium (3.6-5.0) mmol/L Chloride (98-107) mmol/L Carbon Dioxide (22-30) mmol/L Anion Gap mmol/L BUN (9-20) mg/dL Creatinine (0.8-1.5) mg/dL Estimated GFR ml/min BUN/Creatinine Ratio % Glucose (75-100) mg/dL Calcium (8.4-10.2) mg/dL Troponin T < 0.010 (0.00-0.029) ng/mL TSH 1.650 (0.270-4.200) mlU/mL Free T4 1.10 (0.76-1.46) ng/dL - EKG Data -: EKG Interpreted by Tx EKG shows normal: sinus rhythm, axis (qrs -29), QRS complexes (91), ST-T waves (no stemi/t inv) Rate: tachycardia (138) - EKG Data When compared to previous EKG there are: no significant change (other than tachycardia (02/16/17)) - Medical Decision Making I suspect the patient's tachycardia was related to late metoprolol dosage. Patient has no signs of anemia, significant by depletion/Orthostatics, leukocytosis/sepsis and is asymptomatic heart rate improved metoprolol. Mild hyperkalemia and Kayexalate ordered as per recommendation of plastic surgery nurse. Patient will be discharged home. - Differential Diagnosis arrhythmia, anemia, volume depletion, beta german withdrawal Critical Care Time: No Critical care attestation.: If time is entered above; I have spent that time in minutes in the direct care of this critically ill patient, excluding procedure time. ED Disposition Clinical Impression: ESRD (end stage renal disease), Sinus tachycardia, Hyperkalemia Disposition: - TO HOME OR SELFCARE Is pt being admited?: No Does the pt Need Aspirin: No Condition: Stable Instructions: Palpitations (ED), Chronic Kidney Disease (ED), Hyperkalemia (ED) Additional Instructions: Continue your metoprolol as prescribed. You were provided Kayexalate prior to discharge for mild elevation of potassium level. Follow-up with your doctors as scheduled. Return is symptoms worsen as indicated by your discharge instructions. Referrals: WES STONE MD [Staff Physician] - 3-5 Days ETHAN WEATHERS MD [Staff Physician] - 2-3 Days Time of Disposition: 21:04
[2017-06-21 20:06] VITALS: BP 158/81
[2017-06-21] MEDS ORDERED: KIONEX PO ONE (20:47)
== END 2017-06-21 21:25 | disposition home or self-care (01) ==
LOC: ED 16:41
DX: I12.0 Hypertensive chronic kidney disease with stage 5 chronic kidney disease or end stage renal disease (principal); E11.22 Type 2 diabetes mellitus with diabetic chronic kidney disease; N18.6 End stage renal disease; K21.9 Gastro-esophageal reflux disease without esophagitis; F17.200 Nicotine dependence, unspecified, uncomplicated; Z99.2 Dependence on renal dialysis; Z79.82 Long term (current) use of aspirin
CPT/HCPCS: 36415; 80048; 84439; 84443; 84484; 85025; 85610; 93005; 93010; 99284

== ENCOUNTER 2017-07-16 10:27 | Inpatient (IN) | payer MEDICARE ==
[~2017-07-16 10:27] MED LIST changes: -NACL 0.9% 1000 ML 1,000 ML IV SCH
[2017-07-16] MEDS ORDERED: TYLENOL PO PRN (13:43)
[2017-07-16] MEDS ORDERED: SODIUM CHLORIDE FLUSH SYRINGE 10 ML IV PRN (13:43)
[2017-07-16] MEDS ORDERED: PROVENTIL IH PRN (13:43)
[2017-07-16] MEDS ORDERED: ZOFRAN IV PRN (13:43)
[2017-07-16] MEDS ORDERED: NORCO 7.5/325 PO PRN (13:45)
[2017-07-16] MEDS ORDERED: CALCIUM GLUCONATE 1,000 MG in NACL 0.9% 100 ML IV ONE (13:46)
[2017-07-16] MEDS ORDERED: KIONEX PO ONE (13:46)
[2017-07-16] MEDS ORDERED: HEPARIN/NS 5000 UNIT/500ML(CATH LAB) 500 ML IR ONE (14:15)
[2017-07-16] MEDS ORDERED: NACL 0.9% 100 ML ONE (14:15)
[2017-07-16] MEDS ORDERED: VERSED ONE (14:16)
[2017-07-16] MEDS ORDERED: SUBLIMAZE ONE (14:16)
[2017-07-16] MEDS ORDERED: XYLOCAINE 2% INFILTRATI ONE (14:16)
[2017-07-16] MEDS ORDERED: ANCEF/STERILE WATER 2 GM/20 ML 2 GM/20 ML SYRINGE IV ONE (14:16)
--- NOTE | 2017-07-16 14:36 | History and Physical Report ---
History of Present Illness Chief complaint: high potassium History of present illness: 72 YO Male with ESRD on HD (T,R,Sa), DM, GERD, HTN, CHF, admitted directly at the request of Dr. Luo. Pt presented to [facility] for outpatient procedure. Pt underwent dialysis catheter placement. PT was found to have hyperkalemia. Nephrology consulted. Pt admitted to medical floor. Pt seen and evaluated in the dialysis unit prior to arrival to the medical floor. No reported nursing events. Pt denies fever, chills, CP, Palpitations, NVD, Syncope,Productive cough, muscle spasm, weakness, tetany, or recent ill contacts. Nephrology consulted for urgent dialysis. Past History Past Medical History: ESRD, hypertension, hyperlipidemia, other (gout) Past Surgical History: Other (AV Fistula, Permacath Placement) Social history: single. denies: smoking, alcohol abuse, prescription drug abuse Family history: no significant family history (reviewed) Medications and Allergies Allergies Allergy/AdvReac Type Severity Reaction Status Date / Time No Known Allergies Allergy Verified 09/23/16 11:38 Home Medications Medication Instructions Recorded Confirmed Last Taken Type Aspirin [Aspirin BABY CHEW TAB] 81 mg PO DAILY 04/09/13 07/16/17 07/15/17 History 81mg Allopurinol [Zyloprim] 100 mg PO QDAY 11/06/14 07/16/17 07/15/17 History 100mg Atorvastatin Calcium [Lipitor] 10 mg PO QHS 11/06/14 07/16/17 07/15/17 History 10mg Pantoprazole Sodium 40 mg PO QDAY 11/06/14 07/16/17 07/15/17 History 40mg Famotidine [Pepcid] 20 mg PO BID 04/30/16 07/16/17 07/15/17 History 20mg Furosemide [Lasix TAB] 20 mg PO QDAY 04/30/16 07/16/17 07/15/17 History 20mg Sodium Bicarbonate 650 mg PO BID 04/30/16 07/16/17 07/15/17 History 650mg HYDROcodone/APAP 7.5-325 [[place] 1 each PO Q6HR PRN #90 tablet 08/28/16 07/16/17 02/16/17 Rx 7.5-325 mg TAB] B Complex 11/Folic/C/Biot/Zinc 1 each PO DAILY 02/16/17 07/16/17 07/15/17 History [Dialyvite with Zinc Tablet] 1 Hydralazine HCl 50 mg PO BID 02/16/17 07/16/17 07/16/17 History 50mg Metoprolol [Lopressor TAB] 50 mg PO BID 02/16/17 07/16/17 07/16/17 History 50mg Active Meds: Active Medications Acetaminophen (Tylenol) 650 mg PO Q4H PRN PRN Reason: Pain MILD(1-3)/Fever >100.5/SWAN Acetaminophen/Hydrocodone Bitart ([place] 7.5/325) 1 each PO Q6HR PRN PRN Reason: Pain Albuterol (Proventil) 2.5 mg IH Q4HRT PRN PRN Reason: Shortness Of Breath Allopurinol (Zyloprim) 100 mg PO QDAY [facility] Aspirin (Baby Aspirin) 81 mg PO DAILY [facility] Atorvastatin Calcium (Lipitor) 10 mg PO QHS [facility] Famotidine (Pepcid) 20 mg PO BID [facility] Furosemide (Lasix) 20 mg PO DAILY@0600 [facility] Hydralazine HCl (Apresoline) 50 mg PO BID [facility] Cefazolin Sodium (Ancef/Sterile Water 2 Gm/20 Ml) 2 gm in 20 mls @ 80 mls/hr IV PREOP NR; Protocol Stop: 07/16/17 19:00 Metoprolol Tartrate (Lopressor) 50 mg PO BID [facility] Multivit/Ca Carb/B Cmplx/FA/Prenat (Renal Caps) 1 cap PO QDAY [facility] Ondansetron HCl (Zofran) 4 mg IV Q8H PRN PRN Reason: Nausea And Vomiting Pantoprazole Sodium (Protonix) 40 mg PO QDAY [facility] Sodium Bicarbonate (Sodium Bicarbonate) 650 mg PO BID [facility] Sodium Chloride (Sodium Chloride Flush Syringe 10 Ml) 10 ml IV PRN PRN PRN Reason: LINE FLUSH Sodium Chloride (Sodium Chloride Flush Syringe 10 Ml) 10 ml IV BID [facility] Review of Systems Constitutional: no weight loss, no weight gain, no fever, no chills Ears, nose, mouth and throat: no ear pain, no ear discharge, no tinnitis, no decreased hearing, no nose pain, no nasal congestion Cardiovascular: no chest pain, no orthopnea, no palpitations, no rapid/ irregular heart beat, no edema, no syncope Respiratory: no cough, no cough with sputum, no excessive sputum, no hemoptysis Gastrointestinal: no nausea, no vomiting, no diarrhea, no constipation Genitourinary Male: no hematuria, no flank pain, no discharge, no urinary frequency Rectal: no pain, no incontinence, no bleeding Musculoskeletal: no neck stiffness, no neck pain, no shooting arm pain, no arm numbness/tingling, no low back pain Integumentary: no rash, no pruritis, no redness, no sores Neurological: no head injury, no transient paralysis, no paralysis, no weakness , no parathesias, no numbness, no tingling Psychiatric: no anxiety, no memory loss, no change in sleep habits, no sleep disturbances, no insomnia, no hypersomnia, no change in appetite Endocrine: no cold intolerance, no heat intolerance, no polyphagia, no excessive thirst, no polydipsia, no polyuria, no nocturia, no excessive sweating Hematologic/Lymphatic: no easy bruising, no easy bleeding Allergic/Immunologic: no urticaria, no allergic rhinitis, no wheezing Exam - Constitutional Vitals: Temp Pulse Resp BP Pulse Ox 98.5 F 71 14 158/75 100 07/16/17 11:02 07/16/17 12:38 07/16/17 12:02 07/16/17 11:02 07/16/17 12:02 General appearance: Present: no acute distress, obese - EENT Eyes: Present: PERRL ENT: hearing intact, clear oral mucosa - Neck Neck: Present: supple, normal ROM - Respiratory Respiratory effort: normal Respiratory: bilateral: CTA - Cardiovascular Heart Sounds: Present: S1 & S2. Absent: rub, click - Extremities Extremities: pulses symmetrical, No edema Peripheral Pulses: within normal limits - Abdominal General gastrointestinal: Present: soft, non-tender, non-distended, normal bowel sounds Male genitourinary: Present: normal - Integumentary Integumentary: Present: clear, warm, dry - Musculoskeletal Musculoskeletal: gait normal, strength equal bilaterally - Psychiatric Psychiatric: appropriate mood/affect, intact judgment & insight - Neurologic Neurologic: CNII-XII intact, moves all extremities Results - Labs CBC & Chem 7: 07/16/17 11:56 Labs: Abnormal lab results 07/16/17 07/16/17 Range/Units 11:09 11:56 Potassium 6.8 H* 7.8 H* (3.6-5.0) mmol/L Assessment and Plan - Patient Problems (1) ESRD (end stage renal disease) Current Visit: Yes Status: Acute Plan to address problem: Nephrology consulted for urgent dialysis, Pt sent to dialysis unit for dialysis. monitor uop w shift, strict I/O (2) Hyperkalemia Current Visit: Yes Status: Acute Plan to address problem: calcium gluconate, kayexelate, urgent dialysis. (3) HTN (hypertension) Current Visit: Yes Status: Acute Qualifiers: Hypertension type: essential hypertension Qualified Code(s): I10 - Essential (primary) hypertension Plan to address problem: monitor bp q shift, continue current therapy, (4) HLD (hyperlipidemia) Current Visit: Yes Status: Acute Qualifiers: Hyperlipidemia type: mixed hyperlipidemia Qualified Code(s): E78.2 - Mixed hyperlipidemia Plan to address problem: continue current therapy, low cholesterol diet, statin therapy (5) Acidosis Current Visit: Yes Status: Acute Plan to address problem: sodium bicarbonate, urgent dialysis,CMP (6) DVT prophylaxis Current Visit: No Status: Acute Plan to address problem: scd to BLE while in bed.
[2017-07-16] MEDS: HEPARIN 10,000 UNITS/10 ML ONE ×2 (14:42→14:43)
[2017-07-16] MEDS ORDERED: NACL 0.9% 100 ML IV PRN (16:00)
[2017-07-16] MEDS ORDERED: HEPARIN 10,000 UNITS/10 ML IV STA (16:14)
--- NOTE | 2017-07-16 17:12 | Operative Report ---
Operative Report Operative Report: Procedure: Placement of a right common femoral temporary dialysis catheter. Date of Procedure: 07/16/2017 History/Indication: This is a 72 year old male with renal failure. Impression: Successful placement of a 30 cm temporary dialysis catheter via the right common femoral vein. Physician: Rony Santos MD Technique/Procedural Details: Informed consent was obtained. The patient's right groin was prepped and draped in the usual sterile fashion. After administration of local anesthetic, the right common femoral vein was accessed under continuous ultrasound guidance , with an 18-gauge needle. A J-wire was advanced through the needle, and the needle was exchanged for a tissue dilator. After tissue dilation, the temporary dialysis catheter was advanced over the wire. The wire was removed. All 3 lumens were aspirated and flushed. A heparin lock was instilled in each of the 2 larger lumens. A sterile dressing was placed. There were no complications. Discussion: A triple lumen 30cm dialysis catheter was successfully placed. The right common femoral vein is patent and compressible. Specimen: None EBL: <5 cc
[2017-07-16] MEDS ORDERED: HEPARIN IV PRN (17:17)
[2017-07-16] MEDS ORDERED: NACL 0.9 (PRIMING MACHINE ONLY DIALYSIS) MC ONE (17:42)
--- NOTE | 2017-07-16 19:41 | Consultation ---
History of Present Illness - Reason for Consult Consult date: 07/16/17 (consult dictated) - History of Present Illness pt was seen and examined during HD today around 6.40pm via right femoral vas cath. BP-129/69,P-62, afebrile. Lungs- clear, Heart- regular S1,S2, Ext- no edema, right femoral vas cath Past History Past Medical History: ESRD, hypertension, hyperlipidemia, other (gout) Past Surgical History: Other (AV Fistula, Permacath Placement) Social history: single. denies: smoking, alcohol abuse, prescription drug abuse Family history: no significant family history (reviewed) Medications and Allergies Allergies Allergy/AdvReac Type Severity Reaction Status Date / Time No Known Allergies Allergy Verified 09/23/16 11:38 Home Medications Medication Instructions Recorded Confirmed Last Taken Type Aspirin [Aspirin BABY CHEW TAB] 81 mg PO DAILY 04/09/13 07/16/17 07/15/17 History 81mg Allopurinol [Zyloprim] 100 mg PO QDAY 11/06/14 07/16/17 07/15/17 History 100mg Atorvastatin Calcium [Lipitor] 10 mg PO QHS 11/06/14 07/16/17 07/15/17 History 10mg Pantoprazole Sodium 40 mg PO QDAY 11/06/14 07/16/17 07/15/17 History 40mg Famotidine [Pepcid] 20 mg PO BID 04/30/16 07/16/17 07/15/17 History 20mg Furosemide [Lasix TAB] 20 mg PO QDAY 04/30/16 07/16/17 07/15/17 History 20mg Sodium Bicarbonate 650 mg PO BID 04/30/16 07/16/17 07/15/17 History 650mg HYDROcodone/APAP 7.5-325 [[place] 1 each PO Q6HR PRN #90 tablet 08/28/16 07/16/17 02/16/17 Rx 7.5-325 mg TAB] B Complex 11/Folic/C/Biot/Zinc 1 each PO DAILY 02/16/17 07/16/17 07/15/17 History [Dialyvite with Zinc Tablet] 1 Hydralazine HCl 50 mg PO BID 02/16/17 07/16/17 07/16/17 History 50mg Metoprolol [Lopressor TAB] 50 mg PO BID 11/01/2307/16/17 07/16/17 History 50mg Active Meds: Active Medications Acetaminophen (Tylenol) 650 mg PO Q4H PRN PRN Reason: Pain MILD(1-3)/Fever >100.5/SWAN Acetaminophen/Hydrocodone Bitart ([place] 7.5/325) 1 each PO Q6HR PRN PRN Reason: Pain Albuterol (Proventil) 2.5 mg IH Q4HRT PRN PRN Reason: Shortness Of Breath Allopurinol (Zyloprim) 100 mg PO QDAY REPLACED BY [facility] Aspirin (Baby Aspirin) 81 mg PO DAILY REPLACED BY [facility] Atorvastatin Calcium (Lipitor) 10 mg PO QHS REPLACED BY [facility] Famotidine (Pepcid) 20 mg PO BID REPLACED BY [facility] Furosemide (Lasix) 20 mg PO DAILY@0600 REPLACED BY [facility] Heparin Sodium (Porcine) (Heparin) 5,000 unit IV TERRY PRN PRN Reason: hemodialysis Hydralazine HCl (Apresoline) 50 mg PO BID REPLACED BY [facility] Sodium Chloride (Nacl 0.9%) 100 mls @ 999 mls/hr IV TERRY PRN PRN Reason: Hypotension Metoprolol Tartrate (Lopressor) 50 mg PO BID REPLACED BY [facility] Multivit/Ca Carb/B Cmplx/FA/Prenat (Renal Caps) 1 cap PO QDAY REPLACED BY [facility] Ondansetron HCl (Zofran) 4 mg IV Q8H PRN PRN Reason: Nausea And Vomiting Pantoprazole Sodium (Protonix) 40 mg PO QDAY REPLACED BY [facility] Sodium Bicarbonate (Sodium Bicarbonate) 650 mg PO BID REPLACED BY [facility] Sodium Chloride (Sodium Chloride Flush Syringe 10 Ml) 10 ml IV PRN PRN PRN Reason: LINE FLUSH Sodium Chloride (Sodium Chloride Flush Syringe 10 Ml) 10 ml IV BID REPLACED BY [facility] Exam - Constitutional Vitals: Temp Pulse Resp BP Pulse Ox 97.6 F 66 20 138/75 100 07/16/17 15:30 07/16/17 19:30 07/16/17 15:30 07/16/17 19:30 07/16/17 12:02 Results - Labs CBC & Chem 7: 07/16/17 11:56 Labs: Abnormal lab results 07/16/17 07/16/17 Range/Units 11:09 11:56 Potassium 6.8 H* 7.8 H* (3.6-5.0) mmol/L
[2017-07-16] MEDS ORDERED: NON-FORMULARY (Hydralazine Hcl [Hydralazine Hcl] 50 MG) PO SCH (22:00)
[2017-07-16 22:47] LABS: Albumin 3.6 g/dL (3.9-5); Calcium 7.9 mg/dL (8.4-10.2)
[2017-07-16] MEDS: SODIUM BICARBONATE PO SCH (23:33)
[2017-07-16] MEDS: APRESOLINE PO SCH (23:33)
[2017-07-16] MEDS: LOPRESSOR PO SCH (23:33)
[2017-07-16] MEDS: PEPCID PO SCH (23:33)
[2017-07-16] MEDS: SODIUM CHLORIDE FLUSH SYRINGE 10 ML IV SCH (23:35)
--- NOTE | 2017-07-17 02:21 | Consultation ---
RENAL CONSULT REASON FOR CONSULTATION: Hyperkalemia and renal failure. HISTORY OF PRESENT ILLNESS: This 72-year-old Afro-Micron[place] male with type 2 diabetes, hypertension, end-stage renal disease, was brought in for declotting of the left upper arm AV access and he was noted to have potassium of 7.8. A right femoral Vas Cath was placed and the patient required urgent hemodialysis. The patient goes to [facility] on Sunday, , and Sunday. On Sunday, the patient states that he had only 2-1/2 hours of treatment and access got clotted. The patient admits eating potato salad and potato chips over the weekend. PAST MEDICAL HISTORY: End-stage renal disease, type 2 diabetes, hypertension, hyperlipidemia. SOCIAL HISTORY: Denies smoking, alcohol, or drug abuse. FAMILY HISTORY: No family history of kidney failure. ALLERGIES: None. HOME MEDICATIONS: Reviewed. CURRENT MEDICATIONS: Allopurinol 100 mg once a day, aspirin 81 mg a day, Lipitor 10 mg a day, famotidine 20 mg twice a day, Lasix 20 mg a day, hydralazine 50 mg twice a day, metoprolol 50 mg twice a day, pantoprazole 40 mg a day, sodium bicarbonate 650 mg p.o. b.i.d. REVIEW OF SYSTEMS: The patient denies headache or dizziness. Denies fever or chills. Denies chest pain or shortness of breath or abdomen pain. Denies nausea or vomiting. Denies muscle pain. Other review of systems reviewed and negative. PHYSICAL EXAMINATION: GENERAL: The patient is alert, oriented, well developed male, not in acute distress. VITAL SIGNS: Blood pressure 129/69, pulse 62, afebrile. HEENT: Head is normocephalic. Eyes: Sclerae nonicteric. Lips noncyanotic. NECK: No JVD, no thyroid enlargement. LUNGS: Clear. HEART: S1, S2 regular. No pericardial rub. ABDOMEN: Soft, bowel sounds present, nontender. EXTREMITIES: No significant edema. The patient has right femoral catheter in place. Left upper arm AV access has no bruit or thrill. ASSESSMENT AND PLAN: 1. Hyperkalemia. 2. End-stage renal disease. 3. Type 2 diabetes. 4. Hypertension. 5. Malfunctioning left upper arm AV access (clotted AV access). RECOMMENDATIONS: Hemodialysis as ordered. Monitor potassium levels closely. The patient to undergo declotting of the AV access in the left upper arm tomorrow. JOB# [id number] JOHN/JEF
[2017-07-17] MEDS ORDERED: LASIX PO SCH (06:00)
[2017-07-17] MEDS ORDERED: HEPARIN/NS 5000 UNIT/500ML(CATH LAB) 1,000 ML IR ONE (08:13)
[2017-07-17] MEDS ORDERED: HEPARIN 10,000 UNITS/10 ML ONE ×2 (08:14→08:32)
[2017-07-17] MEDS ORDERED: NACL 0.9% 100 ML ONE ×2 (08:34→09:46)
[2017-07-17] MEDS ORDERED: ANCEF/STERILE WATER 2 GM/20 ML 2 GM/20 ML SYRINGE IV ONE (08:34)
[2017-07-17] MEDS: VERSED ONE ×4 (08:42→09:42)
[2017-07-17] MEDS: SUBLIMAZE ONE ×4 (08:42→09:42)
[2017-07-17] MEDS: XYLOCAINE 2% INFILTRATI ONE ×2 (08:43→09:19)
--- NOTE | 2017-07-17 08:45 | Progress Note ---
Assessment and Plan Assessment and plan: ESRD (end stage renal disease) S/P Balloon angioplasty of the perianastomotic portion of the fistula and arteriovenous anastomosis, right femoral vas cath Per HD nurse, difficulty accessing av fistula, HD today, Nephrology following Hyperkalemia s/p calcium gluconate, kayexelate, urgent dialysis. Now resolved HTN (hypertension) monitor bp q shift, continue current therapy, HLD (hyperlipidemia) continue current therapy, low cholesterol diet, statin therapy Acidosis sodium bicarbonate, s/p HD, will follow labs DVT prophylaxis scd to BLE while in bed. History Interval history: Patient seen and examined. No complaints. Labs and nursing notes reviewed Hospitalist Physical - Constitutional Vitals: Temp Pulse Resp BP Pulse Ox 98.5 F 69 18 138/78 98 07/17/17 07:25 07/17/17 07:30 07/17/17 07:30 07/17/17 07:30 07/17/17 07:30 General appearance: Present: no acute distress, well-nourished, obese - EENT Eyes: Present: PERRL, EOM intact ENT: hearing intact, clear oral mucosa - Neck Neck: Present: supple, normal ROM - Respiratory Respiratory effort: normal Respiratory: bilateral: CTA - Cardiovascular Rhythm: regular Heart Sounds: Present: S1 & S2 - Extremities Extremities: no ischemia, No edema, normal temperature, normal color - Abdominal General gastrointestinal: soft, non-tender, non-distended - Integumentary Integumentary: Present: clear, warm, dry - Psychiatric Psychiatric: appropriate mood/affect, intact judgment & insight, cooperative - Neurologic Neurologic: CNII-XII intact, moves all extremities Results - Labs CBC & Chem 7: 07/16/17 21:49 Labs: Laboratory Last Values Sodium 135 mmol/L (137-145) L 07/16/17 21:49 Potassium 4.1 mmol/L (3.6-5.0) D 07/16/17 21:49 Chloride 92.1 mmol/L (98-107) L 07/16/17 21:49 Carbon Dioxide 26 mmol/L (22-30) 07/16/17 21:49 Anion Gap 21 mmol/L 07/16/17 21:49 BUN 35 mg/dL (9-20) H 07/16/17 21:49 Creatinine 7.5 mg/dL (0.8-1.5) H 07/16/17 21:49 Estimated GFR 9 ml/min 07/16/17 21:49 BUN/Creatinine Ratio 5 % 07/16/17 21:49 Glucose 235 mg/dL (75-100) H 07/16/17 21:49 POC Glucose 85 (70-105) 07/16/17 15:16 Calcium 7.9 mg/dL (8.4-10.2) L 07/16/17 21:49 Total Bilirubin 0.30 mg/dL (0.1-1.2) 07/16/17 21:49 AST 7 units/L (5-40) 07/16/17 21:49 ALT 7 units/L (7-56) 07/16/17 21:49 Alkaline Phosphatase 77 units/L (35-129) 07/16/17 21:49 Total Protein 6.8 g/dL (6.3-8.2) 07/16/17 21:49 Albumin 3.6 g/dL (3.9-5) L 07/16/17 21:49 Albumin/Globulin Ratio 1.1 % 07/16/17 21:49
--- NOTE | 2017-07-17 09:47 | Progress Note ---
Assessment and Plan - Patient Problems (1) ESRD (end stage renal disease) Current Visit: Yes Status: Chronic Plan to address problem: dialysis access [id number] angiogram and angioplasty today- reported to have cannulation problem-vascular surgery notes reviewed, discussed with . Ok to discharge pt today after femoral cather is removed. Pt to go to outpt dialysis center on , if still has cannulation problem, will do outpt evaluation and procedure. Hyperkalemia resolved. clinically pt is stable at present time. (2) HTN (hypertension) Current Visit: Yes Status: Chronic Qualifiers: Hypertension type: essential hypertension Qualified Code(s): I10 - Essential (primary) hypertension Plan to address problem: BP under control (3) Hyperkalemia Current Visit: Yes Status: Resolved (4) Dialysis AV fistula malfunction Current Visit: No Status: Acute Subjective Date of service: 07/17/17 Interval history: pt is alert, oriented, wants to go home. Pt had fistulogram today and angioplasty of the anastomotic area, had HD afterwards. Reported to have problem cannulating the AVF today, but ran at BF of 350 ml/mt after successful cannulation. Objective - Vital Signs Vital signs: Vital Signs - 12hr 07/16/17 07/16/17 07/17/17 23:23 23:30 02:46 Temperature 98.9 F Pulse Rate 81 71 Respiratory 20 20 Rate Blood Pressure 133/68 Blood Pressure [Right] O2 Sat by Pulse 95 93 Oximetry 07/17/17 07/17/17 07:25 07:30 Temperature 98.5 F Pulse Rate 71 69 Respiratory 18 18 Rate Blood Pressure Blood Pressure 147/77 138/78 [Right] O2 Sat by Pulse 97 98 Oximetry - General Appearance General appearance: well-developed EENT: mucous membranes moist Neck: no JVD Respiratory: Present: Clear to Ascultation Cardiology: regular Gastrointestinal: normoactive bowel sounds Neurologic: alert and oriented x3 Musculoskeletal: other (left upper arm AVF has bruit and thrill, right femoral vas cath in place) Psychiatric: mood/affect appropriate, cooperative - Lab 07/16/17 21:49 Most recent lab results Calcium 7.9 mg/dL (8.4-10.2) L 07/16/17 21:49
[2017-07-17] MEDS ORDERED: VERSED ONE (09:48)
[2017-07-17] MEDS ORDERED: SUBLIMAZE ONE (09:48)
[2017-07-17] MEDS ORDERED: NON-FORMULARY (B Complex 11/Folic/C/Biot/Zinc [Dialyvite With Zinc Tablet] 1 EACH) PO SCH (10:00)
[2017-07-17] MEDS ORDERED: PROTONIX PO SCH (10:00)
[2017-07-17] MEDS ORDERED: BABY ASPIRIN PO SCH (10:00)
[2017-07-17] MEDS ORDERED: ZYLOPRIM PO SCH (10:00)
[2017-07-17] MEDS ORDERED: Renal Caps PO SCH (10:00)
[2017-07-17] MEDS: PEPCID PO SCH ×2 (10:56→21:40)
[2017-07-17] MEDS: SODIUM BICARBONATE PO SCH ×2 (10:56→21:40)
[2017-07-17] MEDS: APRESOLINE PO SCH ×2 (10:58→21:40)
[2017-07-17] MEDS: SODIUM CHLORIDE FLUSH SYRINGE 10 ML IV SCH ×2 (10:59→21:30)
[2017-07-17] MEDS: LOPRESSOR PO SCH ×2 (10:59→21:40)
--- NOTE | 2017-07-17 11:31 | Operative Report ---
Operative Report Operative Report: Procedure: 1. Ultrasound-guided access of a left upper extremity AV fistula in the central direction 2. Left upper extremity AV fistula gram 3. Balloon angioplasty of the left upper extremity AV fistula 4. Ultrasound-guided access of the fistula and the peripheral direction, towards the arterial anastomosis. 5. Selection of the LUE brachial artery with brachial and proximal radial/ ulnar arteriogram 6. Balloon angioplasty of the perianastomotic portion of the fistula and arteriovenous anastomosis Date of Procedure: 07/17/2017 History/Indication: 72-year-old male with suspicion of narrowing within the left upper extremity AV fistula Physician: Rony Santos MD Technique/Procedural Details: The patient was placed in the supine position and prepped and draped in the usual sterile fashion. A timeout was performed. Sonographic evaluation of the left upper extremity AV fistula was performed. Local anesthetic was administered. Under continuous ultrasound guidance, a 21- gauge needle was used to access the left upper extremity fistula, towards the central circulation. This was exchanged by a micropuncture technique for a short 6 Palestinian vascular sheath. Through the sheath, fistulogram of the arm portion of the left upper extremity fistula was performed. Thereafter, the combination of a 4 Palestinian vertebral catheter and [place] wire was used to access the central circulation. Central venography was performed. First a 6 mm, then an 8 mm balloon was used to perform venoplasty on the midportion of the fistula. Repeat imaging was performed. The balloon was then inflated adjacent to the sheath, and reflux arteriography was performed. In a fashion similar to above, a new access was made facing the arterial anastomosis. A 6 Palestinian sheath was placed. A combination of a Glidewire and vertebral catheter was used to select the brachial and then proximal radial artery. Arteriography was performed. Thereafter, a 4 mm x 8 mm In.Pact Adm. drug-coated balloon was used to perform angioplasty adjacent to the arterial anastomosis and throughout the perianastamotic portion of the fistula. Repeat fistulagram was performed. Both sheaths were removed and hemostasis was achieved with 3-0 and 4-0 Vicryl suture. Discussion: A near 90% stenosis of the mid fistula has been reduced to approximately 20%. 80-90% narrowing of the perianastomotic region has also been reduced to 20%. At the conclusion of the case there was an easily palpable thrill throughout the fistula. Specimen: None EBL: <5 cc
[2017-07-17] MEDS ORDERED: NACL 0.9% 100 ML IV PRN (11:55)
[2017-07-17] MEDS ORDERED: TRIPLE ANTIBIOTIC TP ONE (19:32)
[2017-07-17 21:37] VITALS: BP 104/62
== END 2017-07-17 21:55 | disposition home or self-care (01) | DRG 252 ==
LOC: CATHLABREC 10:27 → 2B-ACE 13:43
PROVIDERS: ADMIT Internal Medicine; ATTEND Internal Medicine
PROC: 06HM33Z Insertion of Infusion Device into Right Femoral Vein, Percutaneous Approach (ICD-10-PCS; 2017-07-16)
PROC: B54BZZA Ultrasonography of Right Lower Extremity Veins, Guidance (ICD-10-PCS; 2017-07-16)
PROC: 5A1D70Z Performance of Urinary Filtration, Intermittent, Less than 6 Hours Per Day (ICD-10-PCS; 2017-07-16)
PROC: 03783ZZ Dilation of Left Brachial Artery, Percutaneous Approach (ICD-10-PCS; principal; 2017-07-17)
PROC: B51W1ZZ Fluoroscopy of Dialysis Shunt/Fistula using Low Osmolar Contrast (ICD-10-PCS; 2017-07-17)
PROC: 037A3ZZ Dilation of Left Ulnar Artery, Percutaneous Approach (ICD-10-PCS; 2017-07-17)
PROC: 5A1D70Z Performance of Urinary Filtration, Intermittent, Less than 6 Hours Per Day (ICD-10-PCS; 2017-07-17)
PROC: 037C3ZZ Dilation of Left Radial Artery, Percutaneous Approach (ICD-10-PCS; 2017-07-17)
PROC: B30 Imaging, Upper Arteries, Plain Radiography (ICD-10-PCS; 2017-07-17)
DX: T82.318A Breakdown (mechanical) of other vascular grafts, initial encounter (principal); N18.6 End stage renal disease; I13.2 Hypertensive heart and chronic kidney disease with heart failure and with stage 5 chronic kidney disease, or end stage renal disease; E87.2 Acidosis; E87.5 Hyperkalemia; E78.5 Hyperlipidemia, unspecified; I50.9 Heart failure, unspecified; K21.9 Gastro-esophageal reflux disease without esophagitis; M10.9 Gout, unspecified; E11.22 Type 2 diabetes mellitus with diabetic chronic kidney disease; Y83.8 Other surgical procedures as the cause of abnormal reaction of the patient, or of later complication, without mention of misadventure at the time of the procedure; Y92.89 Other specified places as the place of occurrence of the external cause; Z79.82 Long term (current) use of aspirin; Z79.899 Other long term (current) drug therapy; Z83.3 Family history of diabetes mellitus; Z82.49 Family history of ischemic heart disease and other diseases of the circulatory system
CPT/HCPCS: 36415; 36556; 36902; 77001; 80053; 82962; 84132; 93005; 93010; 99406; A6250; A9270-GY; C1725; C1751; C1752; C1769; C1894; C2623; J0610; J0690; J1644; J2250; J3010; J7030; Q9967